=== PATIENT | female | born 1965 | race Caucasian/White ===

== ENCOUNTER 2016-09-08 10:52 | Inpatient (IN) | payer MEDICAID ==
[2016-09-08 10:52] VITALS: BMI 22.3
[2016-09-08] MEDS ORDERED: Sodium Chloride 0.9% 1,000 ML IV ONE (11:31)
[2016-09-08 11:56] LABS: BASO # 0.1 K/uL (0.0-0.2); EOS # 0.1 K/uL (0.0-0.7); EOS % 0.9 % (0.0-4.0); HEMATOCRIT 29.5 % (34.0-47.0); LYMPH # 1.5 K/uL (1.0-4.3); MEAN CORPUSCULAR HEMOGLOBIN 39.6 pg (27.0-31.0); MEAN CORPUSCULAR HGB CONC 35.1 g/dL (33.0-37.0); MEAN PLATELET VOLUME 7.7 fL (7.2-11.7); MONO # 1.3 K/uL (0.0-0.8); MONO % 16.1 % (0.0-10.0); NRBC % 0.1 % (0.0-2.0); WHITE BLOOD COUNT 8.3 K/uL (4.8-10.8)
[2016-09-08 12:00] LABS: MEAN CELL VOLUME 112.9 fL (81.0-99.0)
--- NOTE | 2016-09-08 12:33 | CT ---
PROCEDURE: CT HEAD WITHOUT CONTRAST. HISTORY: AMS COMPARISON: Noncontrast head CT performed 01/29/16 TECHNIQUE: Axial computed tomography images were obtained through the head/brain without intravenous contrast. Radiation dose: Total exam DLP = 11 28.60 mGy-cm. This CT exam was performed using one or more of the following dose reduction techniques: Automated exposure control, adjustment of the mA and/or kV according to patient size, and/or use of iterative reconstruction technique. FINDINGS: HEMORRHAGE: No intracranial hemorrhage. BRAIN: Please note that MRI with diffusion imaging is more sensitive in the detection of acute ischemic event.No mass effect or edema. Right frontal encephalomalacia re-identified. Scattered periventricular and subcortical white matter hypodensities, which are nonspecific, but often seen with chronic microvascular ischemic disease. Please note that MRI with diffusion imaging is more sensitive in the detection of acute ischemic event. VENTRICLES: No hydrocephalus. CALVARIUM: Unremarkable. PARANASAL SINUSES: Unremarkable as visualized. No significant inflammatory changes. MASTOID AIR CELLS: The mastoid air cells are underpneumatized. OTHER FINDINGS: None. IMPRESSION: Generalized atrophy. Nonspecific white matter changes. Right frontal encephalomalacia re-identified. The mastoid air cells are underpneumatized.
--- NOTE | 2016-09-08 12:54 | RAD ---
HISTORY: AMS COMPARISON: Chest x-ray performed 03/05/16 TECHNIQUE: Chest, one view. FINDINGS: The patient's chin obscures evaluation of the left lung apex. LUNGS: No focal consolidation. Please note that chest x-ray has limited sensitivity for the detection of pulmonary masses. PLEURA: No significant pleural effusion identified. No definite pneumothorax . CARDIOVASCULAR: Heart size appears within normal limits. Atherosclerotic calcifications of the aorta. OSSEOUS STRUCTURES: No acute osseous abnormality identified. VISUALIZED UPPER ABDOMEN: Unremarkable. OTHER FINDINGS: None. IMPRESSION: No focal consolidation, significant pleural effusion, or definite pneumothorax identified.
--- NOTE | 2016-09-08 13:16 | C.PDOC ---
History Of Present Illness 51 year old patient is brought to the emergency department by family for evaluation of altered mental status that the patient's noted this morning. As per the , patient was not fully responsive this morning and was confused. He notes her skin progressively becoming more yellow-roseanna in discoloration for the past few days. Patient has been compliant with her medications. As per , patient denies any recent illness or vomiting. Further history or review of systems cannot be obtained from patient due to her inability to answer any questions. PMD: Dr. Villeda PMHx: EtOH abuse, liver cirrhosis, hypertension, asthma, bronchitis, depression , anxiety, hepatitis C, diabetes, GI bleed, sepsis, seizure disorder, gastritis PProcedures: Paracentesis 11/04/15 and 11/13/15, EGD 06/27/14 PSurgeries: bilateral tubal ligation Time Seen by Provider: 09/08/16 11:29 Chief Complaint (Nursing): Altered Mental Status History Per: Family History/Exam Limitations: Clinical Condition Onset/Duration Of Symptoms: Hrs (this morning) Onset Of Symptoms: Cannot Confirm Onset Current Symptoms Are (Timing): Still Present Usual Baseline: Alert Oriented Recent travel outside of the [place]: No Additional History Per: EMS Associated Symptoms: Disoriented, Confused Past Medical History Reviewed: Historical Data, Nursing Documentation, Vital Signs Vital Signs: Last Vital Signs Temp 97.7 F 09/08/16 17:32 Pulse 72 09/08/16 17:32 Resp 20 09/08/16 17:32 BP 105/70 09/08/16 17:32 Pulse Ox 97 09/08/16 17:32 - Medical History PMH: Anemia, Anxiety, Asthma, Bronchitis, COPD, Depression, Diabetes (type 2), Hepatitis (C), HTN, Peripheral Edema, Chronic Kidney Disease, Seizures - [facility] Procedures ALCOHOL DETOXIFICATION (01/20/13) DRAINAGE OF PERITONEAL CAVITY WITH DRAIN DEV, PERC APPROACH (02/11/15) DRAINAGE OF PERITONEAL CAVITY, PERCUTANEOUS APPROACH (03/04/16) DRAINAGE OF PERITONEAL CAVITY, PERCUTANEOUS APPROACH, DIAGN (03/04/16) INFLUENZA VACCINATION (06/25/14) INSPECTION OF UPPER INTESTINAL TRACT, ENDO (03/04/16) OCCLUSION ESOPHAGEAL VEIN W EXTRALUM DEV, PERC ENDO (02/11/15) OTHER ENDOSCOPY OF SM INTEST (06/25/14) VACCINATION NEC (06/25/14) Family History: States: Unknown Family Hx - Social History Hx Tobacco Use: Yes (light smoker) Hx Alcohol Use: Yes Hx Substance Use: No - Immunization History Hx Tetanus Toxoid Vaccination: No Hx Influenza Vaccination: No Hx Pneumococcal Vaccination: No Review Of Systems Review Of Systems: ROS cannot be obtained secondary to pt's inabilty to answer questions. Physical Exam - Physical Exam Appears: Chronically Ill Skin: Warm, Dry, Jaundice (generalized, moderate) Head: Normacephalic Eye(s): bilateral: Scleral Icterus Ear(s): Bilateral: Normal Nose: Normal Throat: Normal Neck: Normal ROM, Supple Chest: Symmetrical Cardiovascular: Rhythm Regular, No Murmur, No JVD Respiratory: No Rales, No Rhonchi, No Wheezing Gastrointestinal/Abdominal: Soft, No Tenderness Back: No CVA Tenderness, No Vertebral Tenderness Neurological/Psych: Normal Reflexes ED Course And Treatment - Laboratory Results Result Diagrams: 09/08/16 11:32 09/08/16 14:07 ECG: Interpreted By Me, Viewed By Me ECG Rhythm: Sinus Rhythm ECG Interpretation: Normal Rate From EC (bpm) O2 Sat by Pulse Oximetry: 96 (room air) Pulse Ox Interpretation: Normal - CT Scan/US CT head Other Rad Studies (CT/US): Read By Radiologist, Radiology Report Reviewed CT/US Interpretation: Accession No. : [id number]. Patient Name / ID : SUE FARIA / [id number]. Exam Date : 09/08/2016 12:07:07 ( Approved ). Study Comment : Sex / Age : F / 51Y. Creator : Rita Lees MD. Dictator : Rita Lees MD. Cigar Wrapper : Associate Store Leader : Rita Lees MD. Approver2 : Report Date : 09/08/2016 12:31:32. My Comment : . PROCEDURE: CT HEAD WITHOUT CONTRAST. HISTORY: AMS. COMPARISON: Noncontrast head CT performed 01/29/16. TECHNIQUE: Axial computed tomography images were obtained through the head/brain without intravenous contrast. Radiation dose: Total exam DLP = 11 28.60 mGy-cm. This CT exam was performed using one or more of the following dose reduction techniques: Automated exposure control, adjustment of the mA and/or kV according to patient size, and/ or use of iterative reconstruction technique. FINDINGS: HEMORRHAGE: No intracranial hemorrhage. BRAIN: Please note that MRI with diffusion imaging is more sensitive in the detection of acute ischemic event.No mass effect or edema. Right frontal encephalomalacia re-identified. Scattered periventricular and subcortical white matter hypodensities, which are nonspecific, but often seen with chronic microvascular ischemic disease. Please note that MRI with diffusion imaging is more sensitive in the detection of acute ischemic event. VENTRICLES: No hydrocephalus. CALVARIUM: Unremarkable. PARANASAL SINUSES: Unremarkable as visualized. No significant inflammatory changes. MASTOID AIR CELLS: The mastoid air cells are underpneumatized. OTHER FINDINGS: None. IMPRESSION: Generalized atrophy. Nonspecific white matter changes. Right frontal encephalomalacia re-identified. The mastoid air cells are underpneumatized. Progress Note: Plan: -EKG. -Head CT w/o contrast. -Labs. -Chest x-ray. -IV fluids. On re-eavluation, pt remained unchanged. Slightly lethargic, although hemodynamicaly stable. Diagnostics review, ammonimea, hyperbilirubinemia hx of liver cirrhosis. Case discussed with Hospitalist covering for and admission arranged. Disposition - Disposition Disposition: HOSPITALIZED Disposition Time: 14:01 Condition: FAIR - Clinical Impression Clinical Impression: Mental status alteration, Hepatic encephalopathy, Hyperbilirubinemia - PA / OPHTHALMIC DISPENSER / Resident Statement MD/DO has reviewed & agrees with the documentation as recorded. - Scribe Statement The provider has reviewed the documentation as recorded by the Scribe Antoinette Kauffman All medical record entries made by the Scribe were at my direction and personally dictated by me. I have reviewed the chart and agree that the record accurately reflects my personal performance of the history, physical exam, medical decision making, and the department course for this patient. I have also personally directed, reviewed, and agree with the discharge instructions and disposition.
[2016-09-08 14:29] LABS: CHLORIDE 102 mmol/L (98-107); SODIUM 134 mmol/L (132-148)
--- NOTE | 2016-09-08 14:30 | CP.PCM.HP ---
<Rosangela Shrama - Last Filed: 09/08/16 17:28> History of Present Illness - History of Present Illness History of Present Illness: Please note: patient is a poor historian and disoriented to self, place, and time. She believes her name is Jacy, does not know where she is, and believes it is 2006. History is from fiance at bedside and old medical charts. CC: "she was confused this morning" HPI: Patient is a 51 year old female PMHx of EtOH abuse, liver cirrhosis, hypertension, asthma, bronchitis, depression, anxiety, hepatitis C, diabetes, GI bleed, sepsis, seizure disorder, gastritis brought in by her fiance for altered mental status. As per [facility], patient was at baseline last evening around 9pm when she was oriented, ambulating, and they watched a movie together and ate dinner. However when he visited patient this morning at around 8am he noticed she was "more yellow than usual and even her tears were yellow." Patient was also confused and acting inappropriately. Patient wanted to fall asleep and was refusing to eat and would stare blankly at the ceiling. Patient refused her daily breakfast of pancakes but did take her daily medications. She was disheveled and lost control of bowel and bladder function. Patient's fiance did not notice any blood in her stool or urine or any melanotic stool, but did notice that her urine was very yellow. She was weak and unable to walk to the bathroom. Patient's fiance noticed that she has been losing weight unintentionally but her appetite has remained the same. Patient was able to recognize who fiance was and her other family members [ granddaughter and daughter at bedside] but was not oriented to self, place, or time. PMD: Dr. Villeda PMHx: EtOH abuse, liver cirrhosis, hypertension, asthma, bronchitis, depression , anxiety, hepatitis C, diabetes, GI bleed, sepsis, seizure disorder, gastritis Meds: as per [facility], patient takes multivitamins daily ALL: iodinated contrast PSurg: bilateral tubal ligation PProcedures: multiple paracentesis; EGD 03/05/16: non bleeding 10cm esophageal ulcer, portal HTN gastropathy, normal duodenum; EGD 02/12/15 esophageal varices and portal HTN gastropathy PHospitalizations: patient was last discharged from in March 2016 after being admitted for GI bleed. PED: 06/27/16 for abdominal pain- patient was diagnosed with UTI and discharged on ciprofloxacin 1tab PO BID for 7 days Family Hx: Father and brother have hepatitis hepatitis. Sister had an ID Social Hx: patient was drinking 3 beers/day since she was in her teens; as per fiance patient drinks 1/2 a beer a day. Patient used to smoke 1/2 ppd since her teens but as per fiance only smokes a couple of puffs now. Denies any travel, sickness, sick contacts. 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 Patient lives alone. ROS: complete ROS unobtainable. Patient denied any pain in her chest and abdomen and denied any shortness of breath. ED Course: blood work, negatice UDS and alc quant <10, EKG showing NSR, Head CT w/o contrast showing generalized atrophy. Nonspecific white matter changes. Right frontal encephalomalacia re-identified. The mastoid air cells are underpneumatized, CXR showing no focal consolidation, significant pleural effusion or definite pneumothroax. Patient admitted to med/surg for hepatic encephalopathy Present on Admission - Present on Admission Any Indicators Present on Admission: No Review of Systems - Review of Systems Systems not reviewed;Unavailable: Acuity of Condition, Altered Mental Status Past Patient History - Infectious Disease Hx of Infectious Diseases: None - Tetanus Immunizations Tetanus Immunization: Unknown - Past Medical History & Family History Past Medical History?: Yes - Past Social History Smoking Status: Light Smoker < 10 Cigarettes Daily Alcohol: Occasional Home Situation {Lives}: Alone - CARDIAC Hx Hypertension: Yes Hx Peripheral Edema: Yes - PULMONARY Hx Asthma: Yes Hx Bronchitis: Yes Hx Chronic Obstructive Pulmonary Disease (COPD): Yes - NEUROLOGICAL Hx Seizures: Yes - HEENT Hx HEENT Problems: Yes Hx Epistaxis: Yes - RENAL Hx Chronic Kidney Disease: Yes - ENDOCRINE/METABOLIC Hx Endocrine Disorders: Yes Hx Diabetes Mellitus Type 2: Yes - HEMATOLOGICAL/ONCOLOGICAL Hx Anemia: Yes - INTEGUMENTARY Hx Dermatological Problems: No - MUSCULOSKELETAL/RHEUMATOLOGICAL Hx Falls: Yes Hx Unsteady Gait: Yes - GASTROINTESTINAL Hx Gastrointestinal Disorders: Yes Hx Esophageal Varices: Yes (February 2015) Hx Liver Failure: Yes (stage IV cirrhosis) Hx Vomiting: Yes Other/Comment: GI BLEED - GENITOURINARY/GYNECOLOGICAL Hx Genitourinary Disorders: Yes Hx Incontinence: Yes - PSYCHIATRIC Hx Anxiety: Yes Hx Depression: Yes Hx Substance Use: No - SURGICAL HISTORY Hx Surgeries: Yes (ectopic ) Hx Section: Yes (x1) - ANESTHESIA Hx Anesthesia: Yes Hx Anesthesia Reactions: No Meds Allergies/Adverse Reactions: Allergies Allergy/AdvReac Type Severity Reaction Status Date / Time Iodinated Contrast Media - Allergy Verified 09/08/16 10:59 Oral and Physical Exam - Constitutional Appears: Unkempt, Older Than Stated Age, Confused, Cachectic, Chronically Ill Additional comments: jaundiced - Head Exam Head Exam: ATRAUMATIC, NORMOCEPHALIC - Eye Exam Eye Exam: EOMI, PERRL, Scleral icterus (b/l). absent: Conjunctival injection, Normal appearance, Nystagmus, Periorbital swelling Pupil Exam: PERRL - ENT Exam ENT Exam: Mucous Membranes Dry - Neck Exam Neck exam: Positive for: Normal Inspection. Negative for: Lymphadenopathy, Tenderness - Respiratory Exam Respiratory Exam: Clear to Auscultation Bilateral, NORMAL BREATHING PATTERN. absent: Accessory Muscle Use, Rales, Rhonchi, Wheezes, Respiratory Distress - Cardiovascular Exam Cardiovascular Exam: REGULAR RHYTHM, RRR, +S1, +S2. absent: Systolic Murmur - GI/Abdominal Exam GI & Abdominal Exam: Distended (slightly distended), Hernia (umbilical), Normal Bowel Sounds, Soft. absent: Firm, Guarding, Mass, Rigid, Tenderness - Extremities Exam Extremities exam: Positive for: normal inspection, pedal pulses present. Negative for: calf tenderness, pedal edema - Back Exam Back exam: NORMAL INSPECTION. absent: CVA tenderness (L), CVA tenderness (R), muscle spasm, rash noted - Neurological Exam Neurological exam: Altered - Psychiatric Exam Psychiatric exam: Flat Affect - Skin Skin Exam: Dry, Warm Additional comments: jaundiced no petechiae noted Results - Vital Signs Recent Vital Signs: Last Vital Signs Temp 98.1 F 09/08/16 10:55 Pulse 73 09/08/16 14:10 Resp 19 09/08/16 14:10 BP 110/61 09/08/16 14:10 Pulse Ox 96 09/08/16 14:25 - Labs Result Diagrams: 09/08/16 11:32 09/08/16 14:07 Labs: Laboratory Results - last 24 hr 09/08/16 09/08/16 09/08/16 11:22 11:32 11:43 WBC 8.3 RBC 2.61 L Hgb 10.3 L Hct 29.5 L MCV 112.9 H D MCH 39.6 H MCHC 35.1 RDW 20.0 H Plt Count 140 MPV 7.7 Neut % (Auto) 64.0 Lymph % (Auto) 18.0 L Stokes % (Auto) 16.1 H Eos % (Auto) 0.9 Baso % (Auto) 1.0 Neut # 5.3 Lymph # 1.5 Stokes # 1.3 H Eos # 0.1 Baso # 0.1 PT INR APTT POC Glucose (mg/dL) 105 Ammonia Cancelled 09/08/16 09/08/16 11:43 14:08 WBC RBC Hgb Hct MCV MCH MCHC RDW Plt Count MPV Neut % (Auto) Lymph % (Auto) Stokes % (Auto) Eos % (Auto) Baso % (Auto) Neut # Lymph # Stokes # Eos # Baso # PT Cancelled 23.3 H INR Cancelled 2.0 APTT Cancelled 40 H POC Glucose (mg/dL) Ammonia Assessment & Plan - Assessment and Plan (Free Text) Assessment: Patient is a 51 year old female PMHx of EtOH abuse, liver cirrhosis, hypertension, asthma, bronchitis, depression, anxiety, hepatitis C, diabetes, GI bleed, sepsis, seizure disorder, gastritis brought in by her fiance for altered mental status Plan: Altered Mental Status Likely secondary to hepatic encephalopathy Ammonia: 57 CT head w/o contrast: generalized atrophy. Nonspecific white matter changes. Right frontal encephalomalacia re-identified. The mastoid air cells are underpneuomatized Urine Tox: negative Alc quant: < 10 f/u blood culture and urine culture Lactulose 30gm po q1 until patient has a BM as per GI Albumin Albumin 12.5gm @ 25cc/hr Q2 GI Consult Dr. Agosto- help appreciated Alcoholic Cirrhosis TBili 24.7 AST 193 ALT 107 Alk Phosphatase 167 f/u abdominal u/s f/u CT chest, abdomen, pelvis w/o contrast f/u AM labs TBili and Direct Bili f/u tumor markers: AFP, CA 19-9, CEA, CA 125 f/u AM PT/INR and monitor Anemia of chronic disease Monitor H&H Hx of Alcohol abuse Folic acid 1mg po daily Multivitamin 1 tab po daily Vitamin B6 25mg po daily Thiamine 50mg po daily Zofran 4mg IVP Q8 PRN nausea/vomiting Hx of Hepatitis C f/u acute hepatitis panel f/u Viral hep C load Hx of DM Accucheck ACHS low dose RISS f/u [id number] Hx of HTN hold home medications Acute Kidney Injury vs Hepatorenal Syndrome BUN/Cr : 47/1.4 NS @ 50cc/hr Albumin: 2.5 Albumin 12.5gm @ 25cc/hr Q2 f/u urine sodium, random creatitine, urine osmolality, serum osmolality f/u renal duplex complete and renal u/s PPX VTE ppx c/i SCDs Protonix 40mg po daily Strict Is and Os GI/Hepatic diet- protein 60gm Scaffolder referral for malnourishment Plan discussed with Dr. Radha Sharma PGY1 <James Garcia - Last Filed: 09/08/16 19:06> Results - Vital Signs Recent Vital Signs: Last Vital Signs Temp 97.7 F 09/08/16 17:32 Pulse 72 09/08/16 17:32 Resp 20 09/08/16 17:32 BP 105/70 09/08/16 17:32 Pulse Ox 97 09/08/16 17:32 - Labs Result Diagrams: 09/08/16 11:32 09/08/16 14:07 Labs: Laboratory Results - last 24 hr 09/08/16 09/08/16 09/08/16 14:07 14:07 14:08 PT 23.3 H INR 2.0 APTT 40 H Sodium 134 Potassium 3.0 L Chloride 102 Carbon Dioxide 22 Anion Gap 14 BUN 47 H Creatinine 1.4 H Est GFR ( Amer) 48 Est GFR (Non-Af Amer) 40 Random Glucose 83 Calcium 7.7 L Total Bilirubin 24.7 H AST 193 H D ALT 107 H Alkaline Phosphatase 167 H Ammonia 57 H Lactate Dehydrogenase 474 Troponin I 0.0140 Total Protein 7.4 Albumin 2.5 L Globulin 4.9 H Albumin/Globulin Ratio 0.5 L Urine Color Urine Clarity Urine pH Ur Specific [place] Urine Protein Urine Glucose (UA) Urine Ketones Urine Blood Urine Nitrate Urine Bilirubin Urine Urobilinogen Ur Leukocyte Esterase Urine WBC (Auto) Urine RBC (Auto) Ur Squamous Epith Cells Urine Bacteria Hyaline Casts Urine HCG, Qual Urine Opiates Screen Urine Methadone Screen Ur Barbiturates Screen Ur Phencyclidine Scrn Ur Amphetamines Screen U Benzodiazepines Scrn U Oth Cocaine Metabols U Cannabinoids Screen Alcohol, Quantitative < 10 09/08/16 09/08/16 14:53 14:53 PT INR APTT Sodium Potassium Chloride Carbon Dioxide Anion Gap BUN Creatinine Est GFR ( Amer) Est GFR (Non-Af Amer) Random Glucose Calcium Total Bilirubin AST ALT Alkaline Phosphatase Ammonia Lactate Dehydrogenase Troponin I Total Protein Albumin Globulin Albumin/Globulin Ratio Urine Color [place] Urine Clarity Hazy Urine pH 6.0 Ur Specific Ber[place] 1.013 Urine Protein Negative Urine Glucose (UA) Normal Urine Ketones Negative Urine Blood 2+ H Urine Nitrate Negative Urine Bilirubin 2+ H Urine Urobilinogen 4.0 H Ur Leukocyte Esterase Neg Urine WBC (Auto) 5 Urine RBC (Auto) 1 Ur Squamous Epith Cells < 1 Urine Bacteria Rare Hyaline Casts 3-5 H Urine HCG, Qual Negative Urine Opiates Screen Negative Urine Methadone Screen Negative Ur Barbiturates Screen Negative Ur Phencyclidine Scrn Negative Ur Amphetamines Screen Negative U Benzodiazepines Scrn Negative U Oth Cocaine Metabols Negative U Cannabinoids Screen Negative Alcohol, Quantitative Attending/Attestation - Attestation I have personally seen and examined this patient.: Yes I have fully participated in the care of the patient.: Yes I have reviewed all pertinent clinical information: Yes Notes (Text): Medical attending: Patient was seen and examined by me, agrees the above note by medical research associate. Patient was seen and examined by me in the ER bed 12. Family members were at bedside. There is a history of hepatitis C, the family is not aware of how long it's been going on for. There is also a history of extensive drinking and smoking. When I spoke with the patient's family members at bedside explained that she still smokes and on occasion still drinks normally she does have some baseline jaundice. However the family says that at baseline she is normally very interactive the functional however as documented above the resident note yesterday she became very altered mental status during the night. An ammonia level was drawn, very concerned that this could be hepatic encephalopathy she's can eat a lot of lactulose and possibly Xifaxan as well. The other concern is she might have hepatitis C that's developed into liver cancer. She really has extensive liver damage her INR is already elevated. She' s had elevated LFTs as well very low albumen. Also of note her creatinine is also elevated as well. This is either hepato- renal situation or an VINCE due to poor by mouth intake We'll have to get a GI evaluation. In the past patient has had elevated T bilirubin levels. However at this time it 's very high regarding get a CT scan of the abdomen and pelvis as well as a ultrasound of the abdomen in case there could be some sort of biliary tree obstruction Thank you very much, James Garcia
[2016-09-08 14:31] LABS: ALB/GLOB RATIO 0.5 (1.0-2.1); ALKALINE PHOSPHATASE 167 U/L (38-126); AST/SGOT 193 U/L (14-36); BILIRUBIN,TOTAL 24.7 mg/dL (0.2-1.3); CARBON DIOXIDE 22 mmol/L (22-30); GFR AFRICAN-AMERICAN 48; TOTAL PROTEIN 7.4 g/dL (6.3-8.3)
[2016-09-08 14:32] LABS: ALCOHOL SERUM < 10 mg/dl (0-10); ALT/SGPT 107 U/L (9-52); BLOOD UREA NITROGEN 47 mg/dL (7-17); CALCIUM 7.7 mg/dl (8.6-10.4); GLUCOSE,RANDOM 83 mg/dL (65-105)
[2016-09-08 15:15] LABS: RBC URINE 1 /hpf (0-3); URINE BACTERIA RARE (<OCC); URINE BILIRUBIN 2+ (NEGATIVE); URINE BLOOD 2+ (NEGATIVE); URINE COLOR Amber (YELLOW); URINE GLUCOSE (UA) NORMAL (Normal); URINE KETONE NEGATIVE (NEGATIVE); URINE LEUKOCYTE ESTERASE NEG Leu/uL (Negative); URINE PROTEIN NEGATIVE (NEGATIVE)
[2016-09-08 15:17] LABS: WBC URINE 5 /hpf (0-5)
[2016-09-08] MEDS ORDERED: Potassium Chloride 20 mEq ER Tab PO ONE ×2 (17:06→22:07)
[2016-09-08] MEDS ORDERED: Albumin Human 25% (12.5 gm/50 ml) IV SCH (17:30)
[2016-09-08] MEDS: Multiple Vitamins Tab PO SCH (19:26)
[2016-09-08] MEDS: Sodium Chloride 0.9% 1,000 ML IV SCH (22:33)
[2016-09-08] MEDS: (Novolog) Insulin Aspart, Recombinant 100 u/ml 10 ml vial SC SCH (22:34)
[2016-09-09 06:57] LABS: BASO % 0.7 % (0.0-2.0); EOS % 0.7 % (0.0-4.0); HEMATOCRIT 21.4 % (34.0-47.0); LYMPH # 0.8 K/uL (1.0-4.3); LYMPH % 12.8 % (20.0-40.0); MEAN CELL VOLUME 112.9 fL (81.0-99.0); MEAN CORPUSCULAR HGB CONC 35.4 g/dL (33.0-37.0); MEAN PLATELET VOLUME 7.2 fL (7.2-11.7); MONO # 0.9 K/uL (0.0-0.8); MONO % 14.2 % (0.0-10.0); NRBC % 0.1 % (0.0-2.0); RED CELL DISTRIBUTION WIDTH 19.2 % (11.5-14.5); WHITE BLOOD COUNT 6.1 K/uL (4.8-10.8)
[2016-09-09 07:10] LABS: INR 2.1
--- NOTE | 2016-09-09 07:11 | CP.PCM.CON ---
<Raissa Rajan - Last Filed: 09/09/16 09:37> History of Present Illness - History of Present Illness History of Present Illness: Gastroenterology Fellow/PGY4 Consult Note 51 year old female with history of Hypertension, Diabetes, Depression, Anxiety, recurrent decompensated cirrhosis(2/2 GI bleed, ascites, and hepatic encephalopathy) on Lasix/spironolactone 40/100, Hep C genotype 4a/4c/4d viral load 4915 (12/2015), esophageal varices 02/2015 on propranolol resolved on EGD presenting with confusion. Patient is oriented to person and place only. Can not detail why she is in the hospital and does not remember when was her last drink. She states she has loss pf appeitie but denies nausea, vomiting, or abdominla pain. History from [facility] and nursing staff overnight. She was doing well on 09/07 and was found to have yellowing of skin/eyes and confused on morning of 09/09 with refusing to take medications leading to ER presentation. Fiance endorses ongoing daily beer intake with previous history of 3 beers per day. Overnight, nurse confirms three bowel movements with lactulose administration. Prior EGD 02/2016 with one 5mm esophageal ulcer and one linear esophageal ulcer, and portal hypertensive gastropathy. Prior EGD 02/2015 with moderate esophageal varices and placement of 3 bands for ligation. Family- Father- Hepatitis C Spcoal- 3 beers per day since a teen, 1/2 ppd since a teen Surgery- ?hysterectomy, multiple paracentesis FHx: Father - HCV, Sister - CA Review of Systems - Review of Systems Review of Systems: A 12-point review of systems limited in setting of hepatic encephalopathy Past Patient History - Infectious Disease Hx of Infectious Diseases: None - Tetanus Immunizations Tetanus Immunization: Unknown - Past Medical History & Family History Past Medical History?: Yes - Past Social History Smoking Status: Light Smoker < 10 Cigarettes Daily Alcohol: Occasional Home Situation {Lives}: Alone - CARDIAC Hx Hypertension: Yes Hx Peripheral Edema: Yes - PULMONARY Hx Asthma: Yes Hx Bronchitis: Yes Hx Chronic Obstructive Pulmonary Disease (COPD): Yes - NEUROLOGICAL Hx Seizures: Yes - HEENT Hx HEENT Problems: Yes Hx Epistaxis: Yes - RENAL Hx Chronic Kidney Disease: Yes - ENDOCRINE/METABOLIC Hx Endocrine Disorders: Yes Hx Diabetes Mellitus Type 2: Yes - HEMATOLOGICAL/ONCOLOGICAL Hx Anemia: Yes - INTEGUMENTARY Hx Dermatological Problems: No - MUSCULOSKELETAL/RHEUMATOLOGICAL Hx Falls: Yes Hx Unsteady Gait: Yes - GASTROINTESTINAL Hx Gastrointestinal Disorders: Yes Hx Esophageal Varices: Yes (February 2015) Hx Liver Failure: Yes (stage IV cirrhosis) Hx Vomiting: Yes Other/Comment: GI BLEED - GENITOURINARY/GYNECOLOGICAL Hx Genitourinary Disorders: Yes Hx Incontinence: Yes - PSYCHIATRIC Hx Anxiety: Yes Hx Depression: Yes Hx Substance Use: No - SURGICAL HISTORY Hx Surgeries: Yes (ectopic ) Hx Section: Yes (x1) - ANESTHESIA Hx Anesthesia: Yes Hx Anesthesia Reactions: No Meds Allergies/Adverse Reactions: Allergies Allergy/AdvReac Type Severity Reaction Status Date / Time Iodinated Contrast Media - Allergy Verified 09/08/16 10:59 Oral and - Medications Medications: Current Medications Folic Acid (Folic Acid) 1 mg PO DAILY [facility] Last Admin: 09/08/16 19:26 Dose: 1 mg Sodium Chloride (Sodium Chloride 0.9%) 1,000 mls @ 50 mls/hr IV .Q20H [facility] Last Admin: 09/08/16 22:33 Dose: 50 mls/hr Insulin Aspart (Novolog) 0 unit SC ACHS [facility] PRN Reason: Protocol Last Admin: 09/08/16 22:34 Dose: Not Given Lactulose (Enulose) 30 gm PO Q12 [facility] Multivitamins (Hexavitamin) 1 tab PO DAILY [facility] Last Admin: 09/08/16 19:26 Dose: 1 tab Ondansetron HCl (Zofran Inj) 4 mg IVP Q8H PRN PRN Reason: Nausea/Vomiting Pantoprazole Sodium (Protonix Ec Tab) 40 mg PO DAILY [facility] Pyridoxine HCl (Vitamin B6) 25 mg PO DAILY [facility] Last Admin: 09/08/16 19:27 Dose: 25 mg Thiamine HCl (Vitamin B1 Tab) 50 mg PO DAILY [facility] Last Admin: 09/08/16 19:26 Dose: 50 mg Physical Exam - Constitutional Appears: No Acute Distress, Chronically Ill - Head Exam Head Exam: ATRAUMATIC, NORMOCEPHALIC - Eye Exam Eye Exam: EOMI, PERRL, Scleral icterus Pupil Exam: PERRL. absent: Miosis, Mydriatic - ENT Exam ENT Exam: Mucous Membranes Dry, Normal Oropharynx - Neck Exam Neck exam: Positive for: Full Rom, Normal Inspection - Respiratory Exam Respiratory Exam: Clear to Auscultation Bilateral. absent: Rales, Rhonchi, Wheezes - Cardiovascular Exam Cardiovascular Exam: RRR, +S1, +S2. absent: Gallop, Rubs - GI/Abdominal Exam GI & Abdominal Exam: Hernia, Normal Bowel Sounds, Organomegaly, Soft. absent: Distended, Firm, Rebound, Rigid, Tenderness Additional comments: umbilical hernia, splenomegaly - Extremities Exam Extremities exam: Positive for: full ROM. Negative for: pedal edema - Neurological Exam Neurological exam: Altered Additional comments: awake, altered, oriented to person and place, does not know year or president - Psychiatric Exam Psychiatric exam: Flat Affect - Skin Skin Exam: Dry, Intact, Warm Additional comments: diffuse jaundice Results - Vital Signs Recent Vital Signs: Last Vital Signs Temp 98.4 F 09/09/16 00:59 Pulse 96 H 09/09/16 00:59 Resp 20 09/09/16 00:59 BP 98/63 L 09/09/16 00:59 Pulse Ox 98 09/09/16 00:59 - Labs Result Diagrams: 09/09/16 06:44 09/09/16 06:44 Labs: Laboratory Results - last 24 hr 09/08/16 09/08/16 09/08/16 14:07 14:07 14:08 WBC RBC Hgb Hct MCV MCH MCHC RDW Plt Count MPV Neut % (Auto) Lymph % (Auto) Sharkey % (Auto) Eos % (Auto) Baso % (Auto) Neut # Lymph # Sharkey # Eos # Baso # PT 23.3 H INR 2.0 APTT 40 H Sodium 134 Potassium 3.0 L Chloride 102 Carbon Dioxide 22 Anion Gap 14 BUN 47 H Creatinine 1.4 H Est GFR ( Amer) 48 Est GFR (Non-Af Amer) 40 POC Glucose (mg/dL) Random Glucose 83 Serum Osmolality Calcium 7.7 L Total Bilirubin 24.7 H AST 193 H D ALT 107 H Alkaline Phosphatase 167 H Ammonia 57 H Lactate Dehydrogenase 474 Troponin I 0.0140 Total Protein 7.4 Albumin 2.5 L Globulin 4.9 H Albumin/Globulin Ratio 0.5 L Urine Color Urine Clarity Urine pH Ur Specific [place] Urine Protein Urine Glucose (UA) Urine Ketones Urine Blood Urine Nitrate Urine Bilirubin Urine Urobilinogen Ur Leukocyte Esterase Urine WBC (Auto) Urine RBC (Auto) Ur Squamous Epith Cells Urine Bacteria Hyaline Casts Urine HCG, Qual Urine Opiates Screen Urine Methadone Screen Ur Barbiturates Screen Ur Phencyclidine Scrn Ur Amphetamines Screen U Benzodiazepines Scrn U Oth Cocaine Metabols U Cannabinoids Screen Alcohol, Quantitative < 10 09/08/16 09/08/16 09/08/16 14:53 14:53 21:51 WBC RBC Hgb Hct MCV MCH MCHC RDW Plt Count MPV Neut % (Auto) Lymph % (Auto) Sharkey % (Auto) Eos % (Auto) Baso % (Auto) Neut # Lymph # Sharkey # Eos # Baso # PT INR APTT Sodium Potassium Chloride Carbon Dioxide Anion Gap BUN Creatinine Est GFR ( Amer) Est GFR (Non-Af Amer) POC Glucose (mg/dL) 200 H Random Glucose Serum Osmolality Calcium Total Bilirubin AST ALT Alkaline Phosphatase Ammonia Lactate Dehydrogenase Troponin I Total Protein Albumin Globulin Albumin/Globulin Ratio Urine Color [place] Urine Clarity Hazy Urine pH 6.0 Ur Specific [place] 1.013 Urine Protein Negative Urine Glucose (UA) Normal Urine Ketones Negative Urine Blood 2+ H Urine Nitrate Negative Urine Bilirubin 2+ H Urine Urobilinogen 4.0 H Ur Leukocyte Esterase Neg Urine WBC (Auto) 5 Urine RBC (Auto) 1 Ur Squamous Epith Cells < 1 Urine Bacteria Rare Hyaline Casts 3-5 H Urine HCG, Qual Negative Urine Opiates Screen Negative Urine Methadone Screen Negative Ur Barbiturates Screen Negative Ur Phencyclidine Scrn Negative Ur Amphetamines Screen Negative U Benzodiazepines Scrn Negative U Oth Cocaine Metabols Negative U Cannabinoids Screen Negative Alcohol, Quantitative 09/08/16 09/09/16 23:06 06:44 WBC 6.1 RBC 1.89 L Hgb 7.6 L D Hct 21.4 L MCV 112.9 H MCH 40.0 H MCHC 35.4 RDW 19.2 H Plt Count 81 L D MPV 7.2 Neut % (Auto) 71.6 Lymph % (Auto) 12.8 L Sharkey % (Auto) 14.2 H Eos % (Auto) 0.7 Baso % (Auto) 0.7 Neut # 4.4 Lymph # 0.8 L Sharkey # 0.9 H Eos # 0.0 Baso # 0.0 PT INR APTT Sodium Potassium Chloride Carbon Dioxide Anion Gap BUN Creatinine Est GFR ( Amer) Est GFR (Non-Af Amer) POC Glucose (mg/dL) Random Glucose Serum Osmolality 295 Calcium Total Bilirubin AST ALT Alkaline Phosphatase Ammonia Lactate Dehydrogenase Troponin I Total Protein Albumin Globulin Albumin/Globulin Ratio Urine Color Urine Clarity Urine pH Ur Specific [place] Urine Protein Urine Glucose (UA) Urine Ketones Urine Blood Urine Nitrate Urine Bilirubin Urine Urobilinogen Ur Leukocyte Esterase Urine WBC (Auto) Urine RBC (Auto) Ur Squamous Epith Cells Urine Bacteria Hyaline Casts Urine HCG, Qual Urine Opiates Screen Urine Methadone Screen Ur Barbiturates Screen Ur Phencyclidine Scrn Ur Amphetamines Screen U Benzodiazepines Scrn U Oth Cocaine Metabols U Cannabinoids Screen Alcohol, Quantitative Assessment & Plan - Assessment and Plan (Free Text) Assessment: 51 year old female with history of Hypertension, Diabetes, Depression, Anxiety, recurrent decompensated cirrhosis (2/2 GI bleed, ascites, and hepatic encephalopathy) on Lasix/spironolactone 40/100, Hep C genotype 4a/4c/4d viral load 4915 (12/2015), esophageal varices 02/2015 on propranolol resolved on EGD presenting with confusion. Active treatment of decompensated cirrhosis, renal insufficiency versus hepatorenal syndrome, hepatic encephalopathy, and alcoholic hepatitis in setting of continued alcohol abuse. Prior EGD 02/2016 with one 5mm esophageal ulcer and one linear esophageal ulcer, and portal hypertensive gastropathy. Prior EGD 02/2015 with moderate esophageal varices and placement of 3 bands for ligation. Plan: >MELD 40 on admission, today 29 >DF 75.8 on admission, today 79.9 >accepted to [facility]- awaiting bed -Hepatology Fellow- Dr. Lucas >VINCE versus HRS- received albumin 50g (09/09) -received 1L NS bolus 09/09 >ordered second dose of albumin 50g today >on gentle IVFs- NS 50cc/hr, strict I&Os >daily LFTs, PT/INR >alcoholic hepatitis -afebrile, normal WBC, U/A negative -pending blood/urine cultures >ordered Prednisolone 40mg daily -follow up paracentesis, cultures -stop if infection present >pending CT chest/abdomen/pelvis >pending Abdominal U/S and Duplex U/S >perform diagnostic and therapeutic paracentesis -fluid analysis ordered >Hepatitis C viral load pending >ordered autoimmune workup >pending acetaminophen, negative UDS >low salt diet as tolerated >poor prognosis, recurrent decompensated alcoholic/HepC cirrhosis, alcoholic hepatitis >close monitoring, >awaiting transfer to [facility] <Tristan Agosto - Last Filed: 09/09/16 11:44> Meds - Medications Medications: Current Medications Folic Acid (Folic Acid) 1 mg PO DAILY [facility] Last Admin: 09/09/16 11:07 Dose: Not Given Sodium Chloride (Sodium Chloride 0.9%) 1,000 mls @ 50 mls/hr IV .Q20H [facility] Last Admin: 09/08/16 22:33 Dose: 50 mls/hr Albumin Human (Albumin Human 25% (12.5 Gm/50 Ml)) 50 mls @ 100 mls/hr IV Q2H [facility] Stop: 09/09/16 12:29 Albumin Human (Albumin Human 25% (12.5 Gm/50 Ml)) 50 mls @ 100 mls/hr IV Q2H [facility] Stop: 09/09/16 12:29 Insulin Aspart (Novolog) 0 unit SC ACHS [facility] PRN Reason: Protocol Last Admin: 09/09/16 08:20 Dose: Not Given Lactulose (Enulose) 30 gm PO Q12 [facility] Last Admin: 09/09/16 11:07 Dose: Not Given Multivitamins (Hexavitamin) 1 tab PO DAILY [facility] Last Admin: 09/09/16 11:07 Dose: Not Given Ondansetron HCl (Zofran Inj) 4 mg IVP Q8H PRN PRN Reason: Nausea/Vomiting Pantoprazole Sodium (Protonix Ec Tab) 40 mg PO DAILY [facility] Last Admin: 09/09/16 11:08 Dose: Not Given Prednisolone (Prednisolone) 40 mg PO DAILY [facility] Last Admin: 09/09/16 11:07 Dose: Not Given Pyridoxine HCl (Vitamin B6) 25 mg PO DAILY [facility] Last Admin: 09/09/16 11:08 Dose: Not Given Thiamine HCl (Vitamin B1 Tab) 50 mg PO DAILY [facility] Last Admin: 09/09/16 11:08 Dose: Not Given Results - Vital Signs Recent Vital Signs: Last Vital Signs Temp 98.7 F 09/09/16 07:28 Pulse 74 09/09/16 07:28 Resp 20 09/09/16 07:28 BP 108/68 09/09/16 07:28 Pulse Ox 97 09/09/16 07:28 - Labs Result Diagrams: 09/09/16 06:44 09/09/16 06:44 Labs: Laboratory Results - last 24 hr 09/08/16 09/08/16 09/08/16 14:07 14:07 14:08 WBC RBC Hgb Hct MCV MCH MCHC RDW Plt Count MPV Neut % (Auto) Lymph % (Auto) Sharkey % (Auto) Eos % (Auto) Baso % (Auto) Neut # Lymph # Sharkey # Eos # Baso # PT 23.3 H INR 2.0 APTT 40 H Sodium 134 Potassium 3.0 L Chloride 102 Carbon Dioxide 22 Anion Gap 14 BUN 47 H Creatinine 1.4 H Est GFR ( Amer) 48 Est GFR (Non-Af Amer) 40 POC Glucose (mg/dL) Random Glucose 83 Serum Osmolality Calcium 7.7 L Phosphorus Magnesium Total Bilirubin 24.7 H Direct Bilirubin GGT AST 193 H D ALT 107 H Alkaline Phosphatase 167 H Ammonia 57 H Lactate Dehydrogenase 474 Troponin I 0.0140 Total Protein 7.4 Albumin 2.5 L Globulin 4.9 H Albumin/Globulin Ratio 0.5 L Alpha Fetoprotein Carcinoembryonic Ag CA 19-9 Antigen CA 125 Antigen Urine Color Urine Clarity Urine pH Ur Specific [place] Urine Protein Urine Glucose (UA) Urine Ketones Urine Blood Urine Nitrate Urine Bilirubin Urine Urobilinogen Ur Leukocyte Esterase Urine WBC (Auto) Urine RBC (Auto) Ur Squamous Epith Cells Urine Bacteria Hyaline Casts Urine HCG, Qual Urine Opiates Screen Urine Methadone Screen Ur Barbiturates Screen Ur Phencyclidine Scrn Ur Amphetamines Screen U Benzodiazepines Scrn U Oth Cocaine Metabols U Cannabinoids Screen Alcohol, Quantitative < 10 Hepatitis A IgM Ab Hep Bs Antigen Hep B Core IgM Ab Hepatitis C Antibody 09/08/16 09/08/16 09/08/16 14:53 14:53 21:51 WBC RBC Hgb Hct MCV MCH MCHC RDW Plt Count MPV Neut % (Auto) Lymph % (Auto) Sharkey % (Auto) Eos % (Auto) Baso % (Auto) Neut # Lymph # Sharkey # Eos # Baso # PT INR APTT Sodium Potassium Chloride Carbon Dioxide Anion Gap BUN Creatinine Est GFR ( Amer) Est GFR (Non-Af Amer) POC Glucose (mg/dL) 200 H Random Glucose Serum Osmolality Calcium Phosphorus Magnesium Total Bilirubin Direct Bilirubin GGT AST ALT Alkaline Phosphatase Ammonia Lactate Dehydrogenase Troponin I Total Protein Albumin Globulin Albumin/Globulin Ratio Alpha Fetoprotein Carcinoembryonic Ag CA 19-9 Antigen CA 125 Antigen Urine Color [place] Urine Clarity Hazy Urine pH 6.0 Ur Specific [place] 1.013 Urine Protein Negative Urine Glucose (UA) Normal Urine Ketones Negative Urine Blood 2+ H Urine Nitrate Negative Urine Bilirubin 2+ H Urine Urobilinogen 4.0 H Ur Leukocyte Esterase Neg Urine WBC (Auto) 5 Urine RBC (Auto) 1 Ur Squamous Epith Cells < 1 Urine Bacteria Rare Hyaline Casts 3-5 H Urine HCG, Qual Negative Urine Opiates Screen Negative Urine Methadone Screen Negative Ur Barbiturates Screen Negative Ur Phencyclidine Scrn Negative Ur Amphetamines Screen Negative U Benzodiazepines Scrn Negative U Oth Cocaine Metabols Negative U Cannabinoids Screen Negative Alcohol, Quantitative Hepatitis A IgM Ab Hep Bs Antigen Hep B Core IgM Ab Hepatitis C Antibody 09/08/16 09/09/16 09/09/16 23:06 06:44 06:44 WBC 6.1 RBC 1.89 L Hgb 7.6 L D Hct 21.4 L MCV 112.9 H MCH 40.0 H MCHC 35.4 RDW 19.2 H Plt Count 81 L D MPV 7.2 Neut % (Auto) 71.6 Lymph % (Auto) 12.8 L Sharkey % (Auto) 14.2 H Eos % (Auto) 0.7 Baso % (Auto) 0.7 Neut # 4.4 Lymph # 0.8 L Sharkey # 0.9 H Eos # 0.0 Baso # 0.0 PT 24.2 H INR 2.1 APTT 44 H Sodium Potassium Chloride Carbon Dioxide Anion Gap BUN Creatinine Est GFR ( Amer) Est GFR (Non-Af Amer) POC Glucose (mg/dL) Random Glucose Serum Osmolality 295 Calcium Phosphorus Magnesium Total Bilirubin Direct Bilirubin GGT AST ALT Alkaline Phosphatase Ammonia Lactate Dehydrogenase Troponin I Total Protein Albumin Globulin Albumin/Globulin Ratio Alpha Fetoprotein Carcinoembryonic Ag CA 19-9 Antigen CA 125 Antigen Urine Color Urine Clarity Urine pH Ur Specific [place] Urine Protein Urine Glucose (UA) Urine Ketones Urine Blood Urine Nitrate Urine Bilirubin Urine Urobilinogen Ur Leukocyte Esterase Urine WBC (Auto) Urine RBC (Auto) Ur Squamous Epith Cells Urine Bacteria Hyaline Casts Urine HCG, Qual Urine Opiates Screen Urine Methadone Screen Ur Barbiturates Screen Ur Phencyclidine Scrn Ur Amphetamines Screen U Benzodiazepines Scrn U Oth Cocaine Metabols U Cannabinoids Screen Alcohol, Quantitative Hepatitis A IgM Ab Hep Bs Antigen Hep B Core IgM Ab Hepatitis C Antibody 09/09/16 09/09/16 09/09/16 06:44 06:44 06:44 WBC RBC Hgb Hct MCV MCH MCHC RDW Plt Count MPV Neut % (Auto) Lymph % (Auto) Sharkey % (Auto) Eos % (Auto) Baso % (Auto) Neut # Lymph # Sharkey # Eos # Baso # PT INR APTT Sodium 140 Potassium 3.8 Chloride 107 Carbon Dioxide 20 L Anion Gap 17 BUN 32 H Creatinine 1.2 Est GFR ( Amer) 58 Est GFR (Non-Af Amer) 48 POC Glucose (mg/dL) Random Glucose 93 Serum Osmolality Calcium 8.9 Phosphorus 3.0 Magnesium 2.1 Total Bilirubin 25.2 H Direct Bilirubin 21.4 H GGT 82 H AST 151 H D ALT 94 H Alkaline Phosphatase 144 H Ammonia Lactate Dehydrogenase Troponin I Total Protein 7.5 Albumin 3.1 L D Globulin 4.4 H Albumin/Globulin Ratio 0.7 L Alpha Fetoprotein 1.9 Carcinoembryonic Ag 12.2 H CA 19-9 Antigen 109 H D CA 125 Antigen 129 H D Urine Color Urine Clarity Urine pH Ur Specific [place] Urine Protein Urine Glucose (UA) Urine Ketones Urine Blood Urine Nitrate Urine Bilirubin Urine Urobilinogen Ur Leukocyte Esterase Urine WBC (Auto) Urine RBC (Auto) Ur Squamous Epith Cells Urine Bacteria Hyaline Casts Urine HCG, Qual Urine Opiates Screen Urine Methadone Screen Ur Barbiturates Screen Ur Phencyclidine Scrn Ur Amphetamines Screen U Benzodiazepines Scrn U Oth Cocaine Metabols U Cannabinoids Screen Alcohol, Quantitative Hepatitis A IgM Ab Negative Hep Bs Antigen Negative Hep B Core IgM Ab Negative Hepatitis C Antibody Reactive H 09/09/16 07:13 WBC RBC Hgb Hct MCV MCH MCHC RDW Plt Count MPV Neut % (Auto) Lymph % (Auto) Sharkey % (Auto) Eos % (Auto) Baso % (Auto) Neut # Lymph # Sharkey # Eos # Baso # PT INR APTT Sodium Potassium Chloride Carbon Dioxide Anion Gap BUN Creatinine Est GFR ( Amer) Est GFR (Non-Af Amer) POC Glucose (mg/dL) 118 H Random Glucose Serum Osmolality Calcium Phosphorus Magnesium Total Bilirubin Direct Bilirubin GGT AST ALT Alkaline Phosphatase Ammonia Lactate Dehydrogenase Troponin I Total Protein Albumin Globulin Albumin/Globulin Ratio Alpha Fetoprotein Carcinoembryonic Ag CA 19-9 Antigen CA 125 Antigen Urine Color Urine Clarity Urine pH Ur Specific [place] Urine Protein Urine Glucose (UA) Urine Ketones Urine Blood Urine Nitrate Urine Bilirubin Urine Urobilinogen Ur Leukocyte Esterase Urine WBC (Auto) Urine RBC (Auto) Ur Squamous Epith Cells Urine Bacteria Hyaline Casts Urine HCG, Qual Urine Opiates Screen Urine Methadone Screen Ur Barbiturates Screen Ur Phencyclidine Scrn Ur Amphetamines Screen U Benzodiazepines Scrn U Oth Cocaine Metabols U Cannabinoids Screen Alcohol, Quantitative Hepatitis A IgM Ab Hep Bs Antigen Hep B Core IgM Ab Hepatitis C Antibody Attending/Attestation - Attestation I have personally seen and examined this patient.: Yes I have fully participated in the care of the patient.: Yes I have reviewed all pertinent clinical information: Yes Notes (Text): Patient seen and examined with GI fellow. Agree with her note as documented above with the following additions/exceptions. This is a 51 year old female with h/o DM, HTN, asthma, seizure disorder, depression/anxiety, ETOH/hep C (GT4/ TN) cirrhosis complicated by history of varices/ascites who is admitted with confusion/encephalopathy and worsening jaundice/hyperbilirubinemia. She does admit to continued ETOH use. Her hepatitis C has never been treated and it does not appear that she follows with GI/hepatology on regular basis. Last EGD 2015 showed no varices (prior banding done in 2014). She is also noted to have acute kidney injury (last Cr 0.6 earlier this year, 1.4 on admission). No reported GI bleeding. She has encephalopathy, currently oriented to place. Her current MELD=40, DF >70. Agree with abdominal imaging/CT scan and abdominal ultrasound with duplex, r/o obstructive jaundice. She has never had triple phase liver imaging to r/o HCC. Recommend continued supportive care, given albumin yesterday, check urine electrolytes, volume challenge with albumin 1g/ kg. Monitor encephalopathy closely with frequent neurochecks. Continue lactulose, add rifaximin. Monitor for GI bleeding. Obtain diagnostic tap, r/o SBP, check blood/urine cultures. If no evidence of infection/obstruction, can consider steroid therapy for ETOH hepatitis. Monitor LFTs closely, obtain daily MELD labs. Repeat autoimmune serologies/HCV viral load. Dr. Tate discussed case with [facility], they accepted patient for transfer, awaiting bed. Overall prognosis is guarded. Will continue to follow and make recommendations pending clinical course. 09/09/16 11:41
[2016-09-09 07:20] LABS: POTASSIUM 3.8 mmol/L (3.6-5.2)
[2016-09-09 07:22] LABS: ALB/GLOB RATIO 0.7 (1.0-2.1); BILIRUBIN,DIRECT 21.4 mg/dL (0.0-0.4); BILIRUBIN,TOTAL 25.2 mg/dL (0.2-1.3); TOTAL PROTEIN 7.5 g/dL (6.3-8.3)
[2016-09-09 07:23] LABS: CALCIUM 8.9 mg/dl (8.6-10.4); MAGNESIUM 2.1 mg/dL (1.6-2.3)
--- NOTE | 2016-09-09 07:32 | CP.PCM.PN ---
<LizzieDhirajvirginia - Last Filed: 09/09/16 13:33> Subjective - Date & Time of Evaluation Date of Evaluation: 09/09/16 Time of Evaluation: 07:23 - Subjective Subjective: PGY 1 Medicine Note- Dr. Garcia's service Pt seen and examined in no apparent acute distress. Pt would like to eat something. Patient describes generalized abdominal discomfort. Otherwise, she states that she was drinking alcohol yesterday and cannot recall too much of the details. She states that she may have had a bowel movement yesterday but cannot recall when or how many times she may have passed a stool. Patient denies subjective fevers or chills,vomiting, diarrhea, paresthesias, lightheadedness, chest pain, palpitations at this time. Objective - Vital Signs/Intake and Output Vital Signs (last 24 hours): Temp Pulse Resp BP Pulse Ox 98.7 F 74 20 108/68 97 09/09/16 07:28 09/09/16 07:28 09/09/16 07:28 09/09/16 07:28 09/09/16 07:28 Intake and Output: 09/09/16 09/09/16 06:59 18:59 Intake Total 550 Output Total 3 Balance 547 - Medications Medications: Current Medications Folic Acid (Folic Acid) 1 mg PO DAILY [facility] Last Admin: 09/08/16 19:26 Dose: 1 mg Sodium Chloride (Sodium Chloride 0.9%) 1,000 mls @ 50 mls/hr IV .Q20H [facility] Last Admin: 09/08/16 22:33 Dose: 50 mls/hr Insulin Aspart (Novolog) 0 unit SC ACHS [facility] PRN Reason: Protocol Last Admin: 09/08/16 22:34 Dose: Not Given Lactulose (Enulose) 30 gm PO Q12 [facility] Multivitamins (Hexavitamin) 1 tab PO DAILY [facility] Last Admin: 09/08/16 19:26 Dose: 1 tab Ondansetron HCl (Zofran Inj) 4 mg IVP Q8H PRN PRN Reason: Nausea/Vomiting Pantoprazole Sodium (Protonix Ec Tab) 40 mg PO DAILY [facility] Pyridoxine HCl (Vitamin B6) 25 mg PO DAILY [facility] Last Admin: 09/08/16 19:27 Dose: 25 mg Thiamine HCl (Vitamin B1 Tab) 50 mg PO DAILY [facility] Last Admin: 09/08/16 19:26 Dose: 50 mg - Labs Labs: 09/09/16 06:44 09/09/16 06:44 PT 24.2 SECONDS (9.7-12.2) H 09/09/16 06:44 INR 2.1 09/09/16 06:44 APTT 44 SECONDS (21-34) H 09/09/16 06:44 - Constitutional Appears: Non-toxic, No Acute Distress - Head Exam Head Exam: ATRAUMATIC, NORMAL INSPECTION, NORMOCEPHALIC - Eye Exam Eye Exam: EOMI, PERRL, Scleral icterus Pupil Exam: PERRL - ENT Exam ENT Exam: Mucous Membranes Moist - Neck Exam Neck Exam: Full ROM - Respiratory Exam Respiratory Exam: absent: Wheezes - Cardiovascular Exam Cardiovascular Exam: +S1, +S2 - GI/Abdominal Exam GI & Abdominal Exam: Distended, Soft, Tenderness (diffusely). absent: Firm, Guarding, Mass - Extremities Exam Extremities Exam: Full ROM, Normal Capillary Refill - Back Exam Back Exam: Full ROM - Neurological Exam Neurological Exam: Alert, Awake, CN II-XII Intact, Oriented x3 - Psychiatric Exam Psychiatric exam: Flat Affect, Normal Affect, Normal Mood - Skin Skin Exam: Dry, Intact Additional comments: jaundiced Assessment and Plan - Assessment and Plan (Free Text) Assessment: Altered Mental Status Likely secondary to hepatic encephalopathy Ammonia: 57 on admssion. Recheck this morning 100. CT head w/o contrast: generalized atrophy. Nonspecific white matter changes. Right frontal encephalomalacia re-identified. The mastoid air cells are underpneuomatized Urine Tox: negative Alc quant: < 10 f/u blood culture and urine culture Lactulose 30gm po q1 until patient has a BM as per GI Albumin 12.5gm @ 25cc/hr Q[address] Agosto- F/U recommendations Alcoholic Cirrhosis GGTP 82 TBili 24.7 AST 151 ALT 94 Alk Phosphatase 144 Abdominal u/s- F/U CT chest, abdomen, pelvis w/o contrast: Advanced cirrhosis with findings suggestive of portal hypertension; Splenomegaly and multiple collateral vessels seein related to portal HTN; splenomegaly; Refer to complete report TBili 25.2 and Direct Bili 21.4 Tumor markers: AFP, CA 19-9, CEA, CA 125 ( all elevated) PT/INR 24.2/2.1 Monitor F/U immune marker studies Prednisolone 40 mg PO daily Xifaxan 550 mg PO BID Paracentesis cancelled- Patient did not have much fluid to attempt tap. Anemia of chronic disease Monitor H&H HGb 7.6 on 09/09. May require transfusion Hx of Alcohol abuse Folic acid 1mg po daily Multivitamin 1 tab po daily Vitamin B6 25mg po daily Thiamine 50mg po daily Zofran 4mg IVP Q8 PRN nausea/vomiting Hx of Hepatitis C Hep B negative HCV positive Never treated Hx of DM Accucheck ACHS low dose RISS f/u HgbA1c Hx of HTN hold home medications Acute Kidney Injury vs Hepatorenal Syndrome BUN/Cr : 47/1.4 on admission. Now 32/1.2. resolving with fluids NS @ 50cc/hr Albumin: 2.5 Albumin 12.5gm @ 25cc/hr Q2 f/u urine sodium, random creatitine, urine osmolality, serum osmolality f/u renal duplex complete and renal u/s PPX VTE ppx c/i SCDs Protonix 40mg po daily Strict Is and Os GI/Hepatic diet- protein 60gm/ Low salt diet [employer] Checker referral for malnourishment Disp: Per Dr. Rajan, patient accepted at [facility] in [place]. Awaiting a bed. <James Garcia - Last Filed: 09/09/16 14:53> Objective - Vital Signs/Intake and Output Vital Signs (last 24 hours): Temp Pulse Resp BP Pulse Ox 98.7 F 74 20 108/68 97 09/09/16 07:28 09/09/16 07:28 09/09/16 07:28 09/09/16 07:28 09/09/16 07:28 Intake and Output: 09/09/16 09/09/16 06:59 18:59 Intake Total 550 Output Total 3 Balance 547 - Medications Medications: Current Medications Folic Acid (Folic Acid) 1 mg PO DAILY [facility] Last Admin: 09/09/16 13:38 Dose: 1 mg Sodium Chloride (Sodium Chloride 0.9%) 1,000 mls @ 50 mls/hr IV .Q20H [facility] Last Admin: 09/09/16 13:39 Dose: Not Given Insulin Aspart (Novolog) 0 unit SC ACHS [facility] PRN Reason: Protocol Last Admin: 09/09/16 12:50 Dose: Not Given Lactulose (Enulose) 30 gm PO Q12 [facility] Last Admin: 09/09/16 13:38 Dose: 30 gm Multivitamins (Hexavitamin) 1 tab PO DAILY [facility] Last Admin: 09/09/16 13:38 Dose: 1 tab Ondansetron HCl (Zofran Inj) 4 mg IVP Q8H PRN PRN Reason: Nausea/Vomiting Pantoprazole Sodium (Protonix Ec Tab) 40 mg PO DAILY [facility] Last Admin: 09/09/16 13:37 Dose: 40 mg Prednisolone (Prednisolone) 40 mg PO DAILY [facility] Last Admin: 09/09/16 11:07 Dose: Not Given Pyridoxine HCl (Vitamin B6) 25 mg PO DAILY [facility] Last Admin: 09/09/16 13:38 Dose: 25 mg Rifaximin (Xifaxan) 550 mg PO BID [facility] Last Admin: 09/09/16 14:08 Dose: 550 mg Thiamine HCl (Vitamin B1 Tab) 50 mg PO DAILY [facility] Last Admin: 09/09/16 13:38 Dose: 50 mg - Labs Labs: 09/09/16 06:44 09/09/16 06:44 PT 24.2 SECONDS (9.7-12.2) H 09/09/16 06:44 INR 2.1 09/09/16 06:44 APTT 44 SECONDS (21-34) H 09/09/16 06:44 Attending/Attestation - Attestation I have personally seen and examined this patient.: Yes I have fully participated in the care of the patient.: Yes I have reviewed all pertinent clinical information, including history, physical exam and plan: Yes Notes (Text): 09/09/16 14:49 Medical attending: Patient was seen and examined by me, patient was seen with the medical insurance claims specialist and agree with the above note by the resident. Per my discussion with the nurse the patient has been getting lactulose and overnight has had several bowel movements. When we saw the patient she initially appeared to be very confused however after we asked her several times she was actually able to tell us the date, location, correctly. She was not in any acute distress however she still appeared to be somewhat off on her mental status. The ammonia level was found to be in the 50s, she currently on lactulose. A lot of the tumor markers that we ordered also elevated as well. When we saw the patient in the morning the CT scan of the abdomen and pelvis had not yet resulted, but since then it has and head suggestive of portal hypertension, splenomegaly, as well as a right kidney cyst. Currently were still waiting on the ultrasound study of the abdomen
[2016-09-09 07:51] LABS: CARCINOEMBRYONIC ANTIGEN 12.2 ng/mL (0-3.0)
[2016-09-09] MEDS: (Novolog) Insulin Aspart, Recombinant 100 u/ml 10 ml vial SC SCH ×4 (08:20→22:52)
[2016-09-09] MEDS ORDERED: PrednisoLONE 6 MG/2 ML SYR PO SCH (10:00)
[2016-09-09] MEDS ORDERED: Albumin Human 25% (12.5 gm/50 ml) IV SCH (10:00)
[2016-09-09] MEDS: Multiple Vitamins Tab PO SCH ×2 (11:07→13:38)
--- NOTE | 2016-09-09 11:07 | CARD ---
APPROVED REPORT EKG Measurement Heart [id number] <Conclusion> Normal sinus rhythm Normal ECG
[2016-09-09] MEDS: Pantoprazole 40 mg EC Tab PO SCH ×2 (11:08→13:37)
--- NOTE | 2016-09-09 13:04 | CT ---
PROCEDURE: CT Chest, Abdomen and Pelvis without intravenous contrast HISTORY: rule out neoplasm/mets COMPARISON: Comparison is made to the previous CT of the chest abdomen and pelvis dated 03/08/[address] of the abdomen and pelvis dated 06/27/2016 TECHNIQUE: Radiation dose: Total exam DLP = 297.16 mGy-cm. This CT exam was performed using one or more of the following dose reduction techniques: Automated exposure control, adjustment of the mA and/or kV according to patient size, and/or use of iterative reconstruction technique. FINDINGS: CT CHEST WITHOUT CONTRAST: LUNGS: No significant interval change in the lungs noted since the previous exam. [id number] emphysematous changes predominant in the upper lobes are again seen. No evidence of pneumonia or mass lesion in the lungs. MEDIASTINUM: Unremarkable. Normal caliber aorta and pulmonary arterial trunk. Normal size heart. LYMPH NODES: Unremarkable. PLEURA: Unremarkable. No pneumothorax. No pleural fluid. BONES: Unremarkable. OTHER FINDINGS: None. CT ABDOMEN AND PELVIS: LIVER: Advanced cirrhotic changes are again noted. There is re- cannulization of the paraumbilical veins in between the left and right liver lobes. No overt mass lesion in the liver in this noncontrast study. GALLBLADDER AND BILE DUCTS: Diffuse gallbladder wall thickening. Findings are nonspecific and may be related to soft tissue edema. The possibility of cholecystitis is not totally excluded also less likely. PANCREAS: Unremarkable. No gross lesion or ductal dilatation. SPLEEN: Splenomegaly is also noted likely secondary to portal hypertension and liver cirrhosis. The spleen measures 14.5 centimeter in the longitudinal diameter. ADRENALS: Unremarkable. No mass. KIDNEYS AND URETERS: There is suspicious for complex cystic lesion or mass protruding from the mid to upper pole right kidney measures 2.6 x 2.9 centimeter. No evidence of hydronephrosis or nephrolithiasis. VASCULATURE: Unremarkable. No aortic aneurysm. BOWEL: Unremarkable. No obstruction. No gross mural thickening. Mild constipation is noted. APPENDIX: No evidence of appendicitis . PERITONEUM: Unremarkable. No free fluid. No free air. LYMPH NODES: Unremarkable. No enlarged lymph nodes. BLADDER: Unremarkable. REPRODUCTIVE: Unremarkable. BONES: No acute fracture. OTHER FINDINGS: None. IMPRESSION: No evidence of significant interval change in the chest since the previous exam. Re- demonstration of advanced cirrhosis with findings suggestive for portal hypertension. Splenomegaly and multiple collateral vessels seen in the upper abdomen related to portal hypertension. Diffuse gallbladder wall thickening may be related to cirrhosis and soft tissue edema. If clinically warranted further assessment by ultrasound may be obtained. Suspicious for complex cyst or mass at the right kidney. Further assessment of the right kidney by ultrasound is recommended. Otherwise no significant interval change since the previous study.
[2016-09-09] MEDS: Sodium Chloride 0.9% 1,000 ML IV SCH ×2 (13:39→22:52)
[2016-09-09 14:00] LABS: IMMUNOGLOBULIN G 2010.5 mg/dL (700.0-1600.0); IMMUNOGLOBULIN M 348.7 mg/dL (40.0-230.0)
[2016-09-09 14:01] LABS: IMMUNOGLOBULIN A 331.7 mg/dL (70.0-400.0)
--- NOTE | 2016-09-09 15:27 | US ---
HISTORY: r/o obstruction COMPARISON: CT of the chest, abdomen, and pelvis without IV contrast performed 09/08/16, abdominal ultrasound performed 03/10/16 TECHNIQUE: Sonographic evaluation of the abdomen. FINDINGS: LIVER: Measures 14.3 cm in sagittal dimension. Echogenic liver may be seen in setting of hepatic parenchymal disease or fatty infiltration. Mildly nodular hepatic contour. No focal hepatic mass identified. The main portal vein appears patent with normal directional flow. Small ascites. GALLBLADDER: No gallstones. Gallbladder sludge. 2 mm echogenic focus without posterior acoustic shadowing, likely gallbladder polyp. Gallbladder wall appears thickened measuring up to 6 mm. Pericholecystic edema. Negative sonographic Bruner's sign as assessed by the junior electrical engineer. COMMON BILE DUCT: Measures 8 mm. Mild intrahepatic biliary ductal dilatation. PANCREAS: Not well visualized. RIGHT KIDNEY: Measures 10.4 x 4.2 x 5.0 cm. No obstructing calculus or hydronephrosis identified. LEFT KIDNEY: Measures 11.9 x 6.0 x 5.2 cm. No obstructing calculus or hydronephrosis identified. SPLEEN: Measures approximately 13.6 cm. AORTA: Limited views appear unremarkable. IVC: Limited views appear unremarkable. OTHER FINDINGS: None. IMPRESSION: Echogenic liver may be seen in setting of hepatic parenchymal disease or fatty infiltration. Mildly nodular hepatic contour. Correlate clinically for cirrhosis. Mild intrahepatic biliary ductal dilatation. Gallbladder wall thickening/pericholecystic edema. Gallbladder sludge. Tiny probable gallbladder polyp measuring approximately 2 mm. Negative sonographic Bruner's sign as assessed by the junior electrical engineer. Correlate clinically. Splenomegaly.
--- NOTE | 2016-09-10 06:11 | CP.PCM.PN ---
<Izzy Samuel - Last Filed: 09/10/16 12:41> Subjective - Date & Time of Evaluation Date of Evaluation: 09/10/16 Time of Evaluation: 06:25 - Subjective Subjective: PGY 1 Medicine Note- Dr. Garcia's service Pt seen and examined in no acute distress. Fiance present bedside . Patient denies any abdominal pain. Pt feels restless and thirsty. Patient had two loose brown bowel movements overnight per nursing. She denies headaches, chest pain, palpitations, nausea, vomiting, or constipation. Pt awaiting transfer to [facility]. Objective - Vital Signs/Intake and Output Vital Signs (last 24 hours): Temp Pulse Resp BP Pulse Ox 99.1 F 81 20 102/74 98 09/10/16 00:48 09/10/16 00:48 09/10/16 00:48 09/10/16 00:48 09/10/16 00:48 Intake and Output: 09/09/16 09/10/16 18:59 06:59 Intake Total 700 Balance 700 - Medications Medications: Current Medications Folic Acid (Folic Acid) 1 mg PO DAILY [facility] Last Admin: 09/09/16 13:38 Dose: 1 mg Sodium Chloride (Sodium Chloride 0.9%) 1,000 mls @ 50 mls/hr IV .Q20H [facility] Last Admin: 09/09/16 22:52 Dose: 50 mls/hr Insulin Aspart (Novolog) 0 unit SC ACHS [facility] PRN Reason: Protocol Last Admin: 09/09/16 22:52 Dose: Not Given Lactulose (Enulose) 30 gm PO Q12 [facility] Last Admin: 09/09/16 22:47 Dose: 30 gm Multivitamins (Hexavitamin) 1 tab PO DAILY [facility] Last Admin: 09/09/16 13:38 Dose: 1 tab Ondansetron HCl (Zofran Inj) 4 mg IVP Q8H PRN PRN Reason: Nausea/Vomiting Pantoprazole Sodium (Protonix Ec Tab) 40 mg PO DAILY [facility] Last Admin: 09/09/16 13:37 Dose: 40 mg Pyridoxine HCl (Vitamin B6) 25 mg PO DAILY [facility] Last Admin: 09/09/16 13:38 Dose: 25 mg Rifaximin (Xifaxan) 550 mg PO BID [facility] Last Admin: 09/09/16 18:33 Dose: 550 mg Thiamine HCl (Vitamin B1 Tab) 50 mg PO DAILY [facility] Last Admin: 09/09/16 13:38 Dose: 50 mg - Labs Labs: 09/09/16 06:44 09/09/16 06:44 PT 24.2 SECONDS (9.7-12.2) H 09/09/16 06:44 INR 2.1 09/09/16 06:44 APTT 44 SECONDS (21-34) H 09/09/16 06:44 - Constitutional Appears: Non-toxic, No Acute Distress - Head Exam Head Exam: ATRAUMATIC, NORMAL INSPECTION, NORMOCEPHALIC - Eye Exam Eye Exam: EOMI, Normal appearance, Scleral icterus Pupil Exam: NORMAL ACCOMODATION, PERRL - ENT Exam ENT Exam: Mucous Membranes Moist - Neck Exam Neck Exam: Full ROM - Respiratory Exam Respiratory Exam: NORMAL BREATHING PATTERN. absent: Wheezes - Cardiovascular Exam Cardiovascular Exam: REGULAR RHYTHM, +S1, +S2 - GI/Abdominal Exam GI & Abdominal Exam: Distended, Soft. absent: Firm, Guarding, Rigid, Tenderness - Extremities Exam Extremities Exam: Full ROM, Normal Capillary Refill. absent: Pedal Edema - Back Exam Back Exam: Full ROM - Neurological Exam Neurological Exam: Alert, Awake, CN II-XII Intact, Oriented x3 - Psychiatric Exam Psychiatric exam: Normal Affect - Skin Skin Exam: Dry, Warm. absent: Normal Color Additional comments: jaundiced Assessment and Plan - Assessment and Plan (Free Text) Assessment: Altered Mental Status Likely secondary to hepatic encephalopathy Ammonia: 57 on admission. Increased to 100 on 09/09 but now 48 on 09/10 CT head w/o contrast: generalized atrophy. Nonspecific white matter changes. Right frontal encephalomalacia re-identified. The mastoid air cells are underpneumatized Urine Tox: negative Alc quant: < 10 f/u blood culture and urine culture Lactulose 30gm po q1 until patient has a BM as per GI Albumin 12.5gm @ 25cc/hr Q[address] Agosto- F/U recommendations Alcoholic Cirrhosis GGTP 82 TBili 24.7 AST 151 ALT 94 Alk Phosphatase 144 Abdominal u/s- F/U CT chest, abdomen, pelvis w/o contrast: Advanced cirrhosis with findings suggestive of portal hypertension; Splenomegaly and multiple collateral vessels seein related to portal HTN; splenomegaly; Refer to complete report Bili elevated Tumor markers: AFP, CA 19-9, CEA, CA 125 ( all elevated) PT/INR 24.2/2.1 Monitor F/U immune marker studies: Elevated IgG and IgM Prednisolone 40 mg PO daily on board if patient remains afebrile Xifaxan 550 mg PO BID/ Lactulose- Titrate to 3 BMs a day Paracentesis cancelled- Patient did not have much fluid to attempt tap. Will benefit from triple phase CT of liver to rule out hepatocellular carcinoma F/U morning labs, coags, bilirubin Anemia of chronic disease Monitor H&H Hgb 6.7. Will transfuse 2 units PRBC Hx of Alcohol abuse Folic acid 1mg po daily Multivitamin 1 tab po daily Vitamin B6 25mg po daily Thiamine 50mg po daily Zofran 4mg IVP Q8 PRN nausea/vomiting Hx of Hepatitis C Hep B negative HCV positive Never treated Hx of DM Accucheck ACHS low dose RISS f/u HgbA1c Hx of HTN Hold home medications Acute Kidney Injury vs Hepatorenal Syndrome BUN/Cr Improved with fludis NS @ 50cc/hr Albumin: 2.5 Albumin 12.5gm @ 25cc/hr Q2 f/u urine sodium, random creatitine, urine osmolality, serum osmolality PPX VTE ppx c/i SCDs Protonix 40mg po daily Strict Is and Os GI/Hepatic diet- protein 60gm/ Low salt diet [employer] referral for malnourishment Disp: Per Dr. Rajan, patient accepted at [facility] in [place]. Awaiting a bed. <James Garcia - Last Filed: 09/10/16 15:41> Objective - Vital Signs/Intake and Output Vital Signs (last 24 hours): Temp Pulse Resp BP Pulse Ox 99.1 F 79 20 101/64 99 09/10/16 15:15 09/10/16 15:15 09/10/16 15:15 09/10/16 15:15 09/10/16 08:00 Intake and Output: 09/10/16 09/10/16 06:59 18:59 Intake Total 550 0 Output Total 2 Balance 548 0 - Medications Medications: Current Medications Folic Acid (Folic Acid) 1 mg PO DAILY [facility] Last Admin: 09/10/16 11:00 Dose: 1 mg Sodium Chloride (Sodium Chloride 0.9%) 1,000 mls @ 50 mls/hr IV .Q20H [facility] Last Admin: 09/10/16 12:23 Dose: Not Given Insulin Aspart (Novolog) 0 unit SC ACHS [facility] PRN Reason: Protocol Last Admin: 09/10/16 12:38 Dose: Not Given Lactulose (Enulose) 30 gm PO Q12 [facility] Last Admin: 09/10/16 10:59 Dose: 30 gm Multivitamins (Hexavitamin) 1 tab PO DAILY [facility] Last Admin: 09/10/16 11:00 Dose: 1 tab Ondansetron HCl (Zofran Inj) 4 mg IVP Q8H PRN PRN Reason: Nausea/Vomiting Pantoprazole Sodium (Protonix Ec Tab) 40 mg PO DAILY [facility] Last Admin: 09/10/16 11:00 Dose: 40 mg Pyridoxine HCl (Vitamin B6) 25 mg PO DAILY [facility] Last Admin: 09/10/16 11:00 Dose: 25 mg Rifaximin (Xifaxan) 550 mg PO BID [facility] Last Admin: 09/10/16 11:00 Dose: 550 mg Thiamine HCl (Vitamin B1 Tab) 50 mg PO DAILY [facility] Last Admin: 09/10/16 11:00 Dose: 50 mg - Labs Labs: 09/10/16 07:42 09/10/16 07:42 PT 24.2 SECONDS (9.7-12.2) H 09/09/16 06:44 INR 2.1 09/09/16 06:44 APTT 44 SECONDS (21-34) H 09/09/16 06:44 Attending/Attestation - Attestation I have personally seen and examined this patient.: Yes I have fully participated in the care of the patient.: Yes I have reviewed all pertinent clinical information, including history, physical exam and plan: Yes Notes (Text): 09/10/16 15:38 Medical attending: Patient was seen and examined by me, agrees the above note by medical device engineer. Patient's family member was present at bedside as well. According to this family members the patient's mental status was back to her baseline. She still however very jaundice with a lot of scleral icterus. However she is much more awake alert very talkative this morning when we saw her. She continues to be on lactulose and Xifaxan for hepatic encephalopathy. When we asked her if she's having bowel movements she says no however at the nurses explained to us that she has had several bowel movements this morning, and the family member at bedside also reports that the patient had bowel movements as well. Patient is anemic, and is pending a blood transfusion sometime today Her creatinine also decreased as well, the concern is for hepatorenal Currently pending transfer to [facility] Thank you very much, James Garcia
[2016-09-10] MEDS: (Novolog) Insulin Aspart, Recombinant 100 u/ml 10 ml vial SC SCH ×4 (07:40→22:44)
[2016-09-10 08:07] LABS: BASO # 0.1 K/uL (0.0-0.2); BASO % 0.8 % (0.0-2.0); EOS # 0.1 K/uL (0.0-0.7); EOS % 0.7 % (0.0-4.0); HEMATOCRIT 19.6 % (34.0-47.0); LYMPH # 1.4 K/uL (1.0-4.3); LYMPH % 19.5 % (20.0-40.0); MEAN CORPUSCULAR HEMOGLOBIN 39.9 pg (27.0-31.0); MEAN CORPUSCULAR HGB CONC 34.1 g/dL (33.0-37.0); MEAN PLATELET VOLUME 7.6 fL (7.2-11.7); MONO # 0.8 K/uL (0.0-0.8); MONO % 11.6 % (0.0-10.0); RED CELL DISTRIBUTION WIDTH 19.6 % (11.5-14.5)
[2016-09-10 08:09] LABS: CHLORIDE 109 mmol/L (98-107); SODIUM 139 mmol/L (132-148)
[2016-09-10 08:10] LABS: POTASSIUM 3.7 mmol/L (3.6-5.2)
[2016-09-10 08:12] LABS: ALB/GLOB RATIO 0.8 (1.0-2.1); ALKALINE PHOSPHATASE 106 U/L (38-126); AST/SGOT 118 U/L (14-36); BILIRUBIN,TOTAL 23.2 mg/dL (0.2-1.3); BLOOD UREA NITROGEN 17 mg/dL (7-17); CARBON DIOXIDE 18 mmol/L (22-30); GFR AFRICAN-AMERICAN > 60; GLUCOSE,RANDOM 89 mg/dL (65-105); PHOSPHOROUS 2.3 mg/dL (2.5-4.5); TOTAL PROTEIN 6.9 g/dL (6.3-8.3)
[2016-09-10 08:13] LABS: ALT/SGPT 79 U/L (9-52); CALCIUM 8.6 mg/dl (8.6-10.4); MAGNESIUM 2.1 mg/dL (1.6-2.3)
[2016-09-10 08:16] LABS: MEAN CELL VOLUME 116.9 fL (81.0-99.0)
[2016-09-10] MEDS: Multiple Vitamins Tab PO SCH (11:00)
[2016-09-10] MEDS: Pantoprazole 40 mg EC Tab PO SCH (11:00)
--- NOTE | 2016-09-10 11:23 | CP.PCM.PN ---
Subjective - Date & Time of Evaluation Date of Evaluation: 09/10/16 Time of Evaluation: 11:00 - Subjective Subjective: Patient seen and examined. No acute events overnight, she is seen resting in bed comfortably. She claims to have not had any bowel movements yesterday or overnight but after discussion with nursing staff this seems incorrect. She apparently had 2 loose brown bowel movements overnight during prior nursing shift. She denies abdominal pain, nausea, vomiting, fever/chills. Tolerating PO diet without difficulty. Review of vitals from today are normal, though temperature of 101 noted yesterday. 12 point review of systems performed, negative aside from mentioned above. Objective - Vital Signs/Intake and Output Vital Signs (last 24 hours): Temp Pulse Resp BP Pulse Ox 98.7 F 88 20 105/68 99 09/10/16 08:00 09/10/16 08:00 09/10/16 08:00 09/10/16 08:00 09/10/16 08:00 Intake and Output: 09/10/16 09/10/16 06:59 18:59 Intake Total 550 Output Total 2 Balance 548 - Medications Medications: Current Medications Folic Acid (Folic Acid) 1 mg PO DAILY [facility] Last Admin: 09/09/16 13:38 Dose: 1 mg Sodium Chloride (Sodium Chloride 0.9%) 1,000 mls @ 50 mls/hr IV .Q20H [facility] Last Admin: 09/09/16 22:52 Dose: 50 mls/hr Insulin Aspart (Novolog) 0 unit SC ACHS [facility] PRN Reason: Protocol Last Admin: 09/10/16 07:40 Dose: Not Given Lactulose (Enulose) 30 gm PO Q12 [facility] Last Admin: 09/09/16 22:47 Dose: 30 gm Multivitamins (Hexavitamin) 1 tab PO DAILY [facility] Last Admin: 09/09/16 13:38 Dose: 1 tab Ondansetron HCl (Zofran Inj) 4 mg IVP Q8H PRN PRN Reason: Nausea/Vomiting Pantoprazole Sodium (Protonix Ec Tab) 40 mg PO DAILY [facility] Last Admin: 09/09/16 13:37 Dose: 40 mg Pyridoxine HCl (Vitamin B6) 25 mg PO DAILY [facility] Last Admin: 09/09/16 13:38 Dose: 25 mg Rifaximin (Xifaxan) 550 mg PO BID [facility] Last Admin: 09/09/16 18:33 Dose: 550 mg Thiamine HCl (Vitamin B1 Tab) 50 mg PO DAILY [facility] Last Admin: 09/09/16 13:38 Dose: 50 mg - Labs Labs: 09/10/16 07:42 09/10/16 07:42 PT 24.2 SECONDS (9.7-12.2) H 09/09/16 06:44 INR 2.1 09/09/16 06:44 APTT 44 SECONDS (21-34) H 09/09/16 06:44 - Constitutional Appears: Non-toxic, No Acute Distress - Head Exam Head Exam: NORMAL INSPECTION - Eye Exam Eye Exam: Scleral icterus - ENT Exam ENT Exam: Mucous Membranes Moist - Respiratory Exam Respiratory Exam: Clear to Ausculation Bilateral - Cardiovascular Exam Cardiovascular Exam: REGULAR RHYTHM, +S1, +S2 - GI/Abdominal Exam GI & Abdominal Exam: Soft, Normal Bowel Sounds Additional comments: non tender to palpation in four quadrants - Extremities Exam Extremities Exam: Normal Inspection - Skin Additional comments: +jaundice Assessment and Plan - Assessment and Plan (Free Text) Assessment: ETOH/HCV decompensated cirrhosis Anemia HTN / DM Jaundice CT imaging reviewed by me showing cirrhotic liver without presence of ascites. GB wall thickening, complex cystic lesion of R kidney, splenomegaly Sepsis Plan: - H/H trending down, though no overt bleeding noted. Would transfuse 1 U PRBC and continue to monitor for time being. - Continue with PPI therapy - Low sodium diet as tolerated - Follow up blood/urine cultures - Continue with lactulose/xifaxan regimen for treatment of HE, titrate so patient has 3 bowel movements daily - Creatinine improving, continue to monitor - LFTs stable, continue to monitor, awaiting autoimmune panel - At some point patient will benefit from triple phase liver CT to rule out HCC - Therapy with prednisolone for acute ETOH hepatitis was deferred yesterday given febrile illness, though if blood cultures remain negative would suggest beginning therapy. May also consider trental as an alternate in this situation. - Patient accepted for transfer to [facility] liver service, awaiting bed availability - Overall prognosis for patient remains poor
[2016-09-10] MEDS: Sodium Chloride 0.9% 1,000 ML IV SCH (12:23)
[2016-09-10 18:46] LABS: HEMATOCRIT 23.8 % (34.0-47.0); MEAN CORPUSCULAR HEMOGLOBIN 36.8 pg (27.0-31.0); MEAN CORPUSCULAR HGB CONC 34.3 g/dL (33.0-37.0); MEAN PLATELET VOLUME 6.8 fL (7.2-11.7); RED CELL DISTRIBUTION WIDTH 26.5 % (11.5-14.5); WHITE BLOOD COUNT 6.7 K/uL (4.8-10.8)
[2016-09-10 18:58] LABS: MEAN CELL VOLUME 107.4 fL (81.0-99.0)
[2016-09-11 00:39] LABS: BASO % 0.6 % (0.0-2.0); EOS # 0.1 K/uL (0.0-0.7); HEMATOCRIT 31.3 % (34.0-47.0); LYMPH # 0.8 K/uL (1.0-4.3); LYMPH % 10.1 % (20.0-40.0); MEAN CELL VOLUME 101.3 fL (81.0-99.0); MEAN CORPUSCULAR HEMOGLOBIN 34.6 pg (27.0-31.0); MEAN CORPUSCULAR HGB CONC 34.2 g/dL (33.0-37.0); MEAN PLATELET VOLUME 7.3 fL (7.2-11.7); MONO # 0.9 K/uL (0.0-0.8); RED CELL DISTRIBUTION WIDTH 26.5 % (11.5-14.5)
[2016-09-11] MEDS: (Novolog) Insulin Aspart, Recombinant 100 u/ml 10 ml vial SC SCH ×4 (08:02→21:47)
[2016-09-11 08:26] LABS: BASO # 0.1 K/uL (0.0-0.2); BASO % 0.7 % (0.0-2.0); EOS # 0.1 K/uL (0.0-0.7); EOS % 1.2 % (0.0-4.0); HEMATOCRIT 29.3 % (34.0-47.0); LYMPH % 11.3 % (20.0-40.0); MEAN CELL VOLUME 100.8 fL (81.0-99.0); MEAN CORPUSCULAR HEMOGLOBIN 35.5 pg (27.0-31.0); MEAN CORPUSCULAR HGB CONC 35.2 g/dL (33.0-37.0); MEAN PLATELET VOLUME 7.2 fL (7.2-11.7); MONO % 11.7 % (0.0-10.0); RED CELL DISTRIBUTION WIDTH 27.7 % (11.5-14.5); WHITE BLOOD COUNT 8.6 K/uL (4.8-10.8)
[2016-09-11 08:39] LABS: INR 2.5
[2016-09-11 08:57] LABS: CHLORIDE 110 mmol/L (98-107)
[2016-09-11 08:59] LABS: POTASSIUM 3.9 mmol/L (3.6-5.2); SODIUM 136 mmol/L (132-148)
[2016-09-11 09:01] LABS: ALB/GLOB RATIO 0.7 (1.0-2.1); ALKALINE PHOSPHATASE 124 U/L (38-126); ALT/SGPT 67 U/L (9-52); AST/SGOT 115 U/L (14-36); BILIRUBIN,DIRECT 20.3 mg/dL (0.0-0.4); BILIRUBIN,TOTAL 25.4 mg/dL (0.2-1.3); BLOOD UREA NITROGEN 12 mg/dL (7-17); CARBON DIOXIDE 17 mmol/L (22-30); GFR AFRICAN-AMERICAN > 60; GLUCOSE,RANDOM 114 mg/dL (65-105); TOTAL PROTEIN 7.1 g/dL (6.3-8.3)
[2016-09-11 09:02] LABS: CALCIUM 8.6 mg/dl (8.6-10.4); MAGNESIUM 1.9 mg/dL (1.6-2.3); PHOSPHOROUS 2.3 mg/dL (2.5-4.5)
--- NOTE | 2016-09-11 09:17 | CP.PCM.PN ---
Addendum entered and electronically signed by Raissa Rajan DO 10:30: Increased Lactulose to QID, goal bowel movements of 3 per day Continue [id number] BID strict I&Os creatinine improved limit IVFs to prevent volume overload Original Note: <Raissa Rajan - Last Filed: 09/11/16 09:29> Subjective - Date & Time of Evaluation Date of Evaluation: 09/11/16 Time of Evaluation: 09:14 - Subjective Subjective: Gastroenterology Fellow/PGY4 Progress Note Patient oriented to person and place. Improving recall of president and month. Patient and nurse confirm one bowel movement yesterday. Nursing staff note recent loose bowel movement this morning. Tolerating diet. A 12-point review of systems negative except for as above. Objective - Vital Signs/Intake and Output Vital Signs (last 24 hours): Temp Pulse Resp BP Pulse Ox 98 F 93 H 20 117/69 100 09/11/16 08:00 09/11/16 08:00 09/11/16 08:00 09/11/16 08:00 09/11/16 08:00 Intake and Output: 09/11/16 09/11/16 06:59 18:59 Intake Total 725 Output Total 1 Balance 724 - Medications Medications: Current Medications Folic Acid (Folic Acid) 1 mg PO DAILY [facility] Last Admin: 09/10/16 11:00 Dose: 1 mg Sodium Chloride (Sodium Chloride 0.9%) 1,000 mls @ 50 mls/hr IV .Q20H [facility] Last Admin: 09/10/16 12:23 Dose: Not Given Insulin Aspart (Novolog) 0 unit SC ACHS [facility] PRN Reason: Protocol Last Admin: 09/11/16 08:02 Dose: Not Given Lactulose (Enulose) 30 gm PO QID [facility] Multivitamins (Hexavitamin) 1 tab PO DAILY [facility] Last Admin: 09/10/16 11:00 Dose: 1 tab Ondansetron HCl (Zofran Inj) 4 mg IVP Q8H PRN PRN Reason: Nausea/Vomiting Pantoprazole Sodium (Protonix Ec Tab) 40 mg PO DAILY [facility] Last Admin: 09/10/16 11:00 Dose: 40 mg Pyridoxine HCl (Vitamin B6) 25 mg PO DAILY [facility] Last Admin: 09/10/16 11:00 Dose: 25 mg Rifaximin (Xifaxan) 550 mg PO BID [facility] Last Admin: 09/10/16 18:17 Dose: 550 mg Thiamine HCl (Vitamin B1 Tab) 50 mg PO DAILY [facility] Last Admin: 09/10/16 11:00 Dose: 50 mg - Labs Labs: 09/11/16 08:05 09/11/16 08:05 PT 29.3 SECONDS (9.7-12.2) H D 09/11/16 08:05 INR 2.5 09/11/16 08:05 APTT 44 SECONDS (21-34) H 09/09/16 06:44 - Constitutional Appears: No Acute Distress, Chronically Ill - Head Exam Head Exam: ATRAUMATIC, NORMOCEPHALIC - Eye Exam Eye Exam: EOMI, PERRL, Scleral icterus Pupil Exam: PERRL. absent: Miosis, Mydriatic - ENT Exam ENT Exam: Mucous Membranes Dry, Normal Oropharynx - Neck Exam Neck Exam: Full ROM, Normal Inspection - Respiratory Exam Respiratory Exam: Clear to Ausculation Bilateral. absent: Rales, Rhonchi, Wheezes - Cardiovascular Exam Cardiovascular Exam: RRR, +S1, +S2. absent: Gallop, Rubs - GI/Abdominal Exam GI & Abdominal Exam: Soft, Hernia, Normal Bowel Sounds, Organomegaly. absent: Distended, Firm, Guarding, Rigid, Tenderness, Rebound Additional comments: umbilical hernia, mildly distended - Extremities Exam Extremities Exam: Full ROM. absent: Pedal Edema - Neurological Exam Neurological Exam: Alert, Awake Additional comments: oriented to person and place - Psychiatric Exam Psychiatric exam: Normal Affect, Normal Mood - Skin Skin Exam: Dry, Intact, Warm Additional comments: jaundice Assessment and Plan - Assessment and Plan (Free Text) Assessment: 51 year old female with history of Hypertension, Diabetes, Depression, Anxiety, recurrent decompensated cirrhosis (2/2 GI bleed, ascites, and hepatic encephalopathy) on Lasix/spironolactone 40/100, Hep C genotype 4a/4c/4d viral load 4915 (12/2015), esophageal varices 02/2015 on propranolol resolved on EGD presenting with confusion. Active treatment of decompensated cirrhosis secondary hepatic encephalopathy and renal insufficiency, and alcoholic hepatitis in setting of continued alcohol abuse. Prior EGD 02/2016 with one 5mm esophageal ulcer and one linear esophageal ulcer, and portal hypertensive gastropathy. Prior EGD 02/2015 with moderate esophageal varices and placement of 3 bands for ligation. Plan: >MELD 40 on admission, today 29 >DF 75.8 on admission, today 115 >infectious process rule dout >start Prednisolone 40mg daily >renal insufficiency improved (received albumin 5/3, 5/4) >daily LFTs, INR >Hepatitis C viral load pending >autoimmune workup pending >U/S and CT A/P - mild GB wall edema, CBD 7mm, no abdominal pain >close monitoring >low salt diet as tolerated >poor prognosis, recurrent decompensated alcoholic/HepC cirrhosis, alcoholic hepatitis >[facility] Hepatology Fellow- Dr. Saba [phone] >medicine team coordinating transfer to [facility] <Tristan Agosto - Last Filed: 09/11/16 10:43> Objective - Vital Signs/Intake and Output Vital Signs (last 24 hours): Temp Pulse Resp BP Pulse Ox 98 F 93 H 20 117/69 100 09/11/16 08:00 09/11/16 08:00 09/11/16 08:00 09/11/16 08:00 09/11/16 08:00 Intake and Output: 09/11/16 09/11/16 06:59 18:59 Intake Total 725 Output Total 1 Balance 724 - Medications Medications: Current Medications Folic Acid (Folic Acid) 1 mg PO DAILY [facility] Last Admin: 09/11/16 09:31 Dose: 1 mg Sodium Chloride (Sodium Chloride 0.9%) 1,000 mls @ 50 mls/hr IV .Q20H [facility] Last Admin: 09/10/16 12:23 Dose: Not Given Insulin Aspart (Novolog) 0 unit SC ACHS [facility] PRN Reason: Protocol Last Admin: 09/11/16 08:02 Dose: Not Given Lactulose (Enulose) 30 gm PO QID [facility] Last Admin: 09/11/16 09:31 Dose: 30 gm Multivitamins (Hexavitamin) 1 tab PO DAILY [facility] Last Admin: 09/11/16 09:31 Dose: 1 tab Ondansetron HCl (Zofran Inj) 4 mg IVP Q8H PRN PRN Reason: Nausea/Vomiting Pantoprazole Sodium (Protonix Ec Tab) 40 mg PO DAILY [facility] Last Admin: 09/11/16 09:31 Dose: 40 mg Prednisolone (Prednisolone) 40 mg PO DAILY [facility] Pyridoxine HCl (Vitamin B6) 25 mg PO DAILY [facility] Last Admin: 09/11/16 09:31 Dose: 25 mg Rifaximin (Xifaxan) 550 mg PO BID [facility] Last Admin: 09/11/16 09:31 Dose: 550 mg Thiamine HCl (Vitamin B1 Tab) 50 mg PO DAILY [facility] Last Admin: 09/11/16 09:32 Dose: 50 mg - Labs Labs: 09/11/16 08:05 09/11/16 08:05 PT 29.3 SECONDS (9.7-12.2) H D 09/11/16 08:05 INR 2.5 09/11/16 08:05 APTT 44 SECONDS (21-34) H 09/09/16 06:44 Attending/Attestation - Attestation I have personally seen and examined this patient.: Yes I have fully participated in the care of the patient.: Yes I have reviewed all pertinent clinical information, including history, physical exam and plan: Yes Notes (Text): Patient seen and examined with GI fellow. Agree with her note as documented above with the following additions/exceptions. This is a 51 year old female with h/o DM, HTN, asthma, seizure disorder, depression/anxiety, ETOH/hep C (GT4/ TN) cirrhosis complicated by history of varices/ascites who is admitted with confusion/encephalopathy and worsening jaundice/hyperbilirubinemia (MELD 40 on admission). She continues to drink ETOH. Her Cr is improving. Mental status is stable although still confused. She denies any new complaints this morning. Hb rosalee at 6.7 yesterday without overt GI blood loss, s/p PRBC transfusion ( now 10). She had large BM this morning, loose and non bloody. Would continue supportive care, titrate lactulose to 2-3 BM/day (will increase to QID today), continue rifaximin. Frequent neurochecks. Monitor for bleeding. Follow up cultures (neg to date). No recurrent fever. No tappable ascites. Obtain daily MELD labs (current MELD-Na 29). Low salt diet as tolerated. Medical team coordinating possible transfer to [facility]. Discussed with Dr. Garcia. 09/11/16 10:41
[2016-09-11] MEDS: Pantoprazole 40 mg EC Tab PO SCH (09:31)
[2016-09-11] MEDS: Multiple Vitamins Tab PO SCH (09:31)
[2016-09-11 10:45] LABS: CREATININE, RANDOM URINE 97.7 mg/dL
[2016-09-11] MEDS: PrednisoLONE 6 MG/2 ML SYR PO SCH (13:59)
[2016-09-11 14:02] LABS: SMOOTH MUSCLE AB TITER 1:20 Titer (< 1:20)
--- NOTE | 2016-09-11 16:15 | CP.PCM.PN ---
<MiguelChemo - Last Filed: 09/11/16 16:15> Subjective - Date & Time of Evaluation Date of Evaluation: 09/11/16 Time of Evaluation: 07:20 - Subjective Subjective: PGY [address] Garcia's service Patient seen and examined at bedside. No acute event overnight. Patient resting in bed comfortably with Fiance present bedside. Patient denies any abdominal pain. [facility] fellow Dr. Saba ([phone]) stated there is no indication for transfer at this time since patient is improving. Patient is poor transplant candidate. Denies headaches, chest pain, palpitations, nausea, vomiting, or constipation. Objective - Vital Signs/Intake and Output Vital Signs (last 24 hours): Temp Pulse Resp BP Pulse Ox 98 F 93 H 20 117/69 100 09/11/16 08:00 09/11/16 08:00 09/11/16 08:00 09/11/16 08:00 09/11/16 08:00 Intake and Output: 09/11/16 09/11/16 06:59 18:59 Intake Total 725 Output Total 1 Balance 724 - Medications Medications: Current Medications Folic Acid (Folic Acid) 1 mg PO DAILY [facility] Last Admin: 09/11/16 09:31 Dose: 1 mg Sodium Chloride (Sodium Chloride 0.9%) 1,000 mls @ 50 mls/hr IV .Q20H [facility] Last Admin: 09/10/16 12:23 Dose: Not Given Insulin Aspart (Novolog) 0 unit SC ACHS [facility] PRN Reason: Protocol Last Admin: 09/11/16 11:43 Dose: Not Given Lactulose (Enulose) 30 gm PO QID [facility] Last Admin: 09/11/16 13:58 Dose: 30 gm Multivitamins (Hexavitamin) 1 tab PO DAILY [facility] Last Admin: 09/11/16 09:31 Dose: 1 tab Ondansetron HCl (Zofran Inj) 4 mg IVP Q8H PRN PRN Reason: Nausea/Vomiting Pantoprazole Sodium (Protonix Ec Tab) 40 mg PO DAILY [facility] Last Admin: 09/11/16 09:31 Dose: 40 mg Prednisolone (Prednisolone) 40 mg PO DAILY [facility] Last Admin: 09/11/16 13:59 Dose: 40 mg Pyridoxine HCl (Vitamin B6) 25 mg PO DAILY [facility] Last Admin: 09/11/16 09:31 Dose: 25 mg Rifaximin (Xifaxan) 550 mg PO BID [facility] Last Admin: 09/11/16 09:31 Dose: 550 mg Thiamine HCl (Vitamin B1 Tab) 50 mg PO DAILY [facility] Last Admin: 09/11/16 09:32 Dose: 50 mg - Labs Labs: 09/11/16 08:05 09/11/16 08:05 PT 29.3 SECONDS (9.7-12.2) H D 09/11/16 08:05 INR 2.5 09/11/16 08:05 APTT 44 SECONDS (21-34) H 09/09/16 06:44 - Constitutional Appears: No Acute Distress - Head Exam Head Exam: ATRAUMATIC, NORMOCEPHALIC - Eye Exam Eye Exam: EOMI, Scleral icterus Pupil Exam: PERRL - ENT Exam ENT Exam: Mucous Membranes Moist - Neck Exam Neck Exam: Normal Inspection - Respiratory Exam Respiratory Exam: Clear to Ausculation Bilateral, NORMAL BREATHING PATTERN - Cardiovascular Exam Cardiovascular Exam: REGULAR RHYTHM, +S1, +S2 - GI/Abdominal Exam GI & Abdominal Exam: Soft, Tenderness, Normal Bowel Sounds - Extremities Exam Extremities Exam: Normal Capillary Refill. absent: Calf Tenderness - Back Exam Back Exam: absent: CVA tenderness (L), CVA tenderness (R) - Neurological Exam Neurological Exam: Alert, Awake, CN II-XII Intact, Oriented x3 - Psychiatric Exam Psychiatric exam: Normal Affect, Normal Mood - Skin Skin Exam: Dry, Intact, Warm Additional comments: jaundiced Assessment and Plan - Assessment and Plan (Free Text) Plan: 1. Altered Mental Status Likely secondary to hepatic encephalopathy Ammonia: 57 on admission. Increased to 100 on 09/09 but now 48 on 09/10 CT head w/o contrast: generalized atrophy. Nonspecific white matter changes. Right frontal encephalomalacia re-identified. The mastoid air cells are underpneumatized Urine Tox: negative Alc quant: < 10 Lactulose 30gm po q1 until patient has a BM as per GI Albumin 12.5gm @ 25cc/hr Q2 GI Consult Dr. Agosto- F/U recommendations 2. Alcoholic Cirrhosis GGTP 82 TBili 25.4 AST 111 ALT 67 Alk Phosphatase 124 Abdominal u/s- F/U CT chest, abdomen, pelvis w/o contrast: Advanced cirrhosis with findings suggestive of portal hypertension; Splenomegaly and multiple collateral vessels seein related to portal HTN; splenomegaly; Refer to complete report Tumor markers: AFP, CA 19-9, CEA, CA 125 ( all elevated) PT/INR 24.2/2.1 Monitor F/U immune marker studies: Elevated IgG and IgM Prednisolone 40 mg PO daily on board if patient remains afebrile Xifaxan 550 mg PO BID/ Lactulose- Titrate to 3 BMs a day Paracentesis cancelled- Patient did not have much fluid to attempt tap. Will benefit from triple phase CT of liver to rule out hepatocellular carcinoma F/U morning labs, coags, bilirubin 3. Anemia of chronic disease Monitor H&H Hgb 10.3 4. Hx of Alcohol abuse Folic acid 1mg po daily Multivitamin 1 tab po daily Vitamin B6 25mg po daily Thiamine 50mg po daily Zofran 4mg IVP Q8 PRN nausea/vomiting 5. Hx of Hepatitis C Hep B negative HCV positive Never treated 6. Hx of DM Accucheck ACHS low dose RISS HgbA1c 7. Hx of HTN Hold home medications 8. Acute Kidney Injury vs Hepatorenal Syndrome BUN/Cr 12/0.9 NS @ 50cc/hr Albumin: 2.5 Albumin 12.5gm @ 25cc/hr Q2 furine sodium 68 random creatitine 97.7 urine osmolality 463 9. Prophylactic Measures VTE ppx c/i SCDs Protonix 40mg po daily Strict Is and Os GI/Hepatic diet- protein 60gm/ Low salt diet Security Monitor referral for malnourishment <James Garcia - Last Filed: 09/11/16 17:31> Objective - Vital Signs/Intake and Output Vital Signs (last 24 hours): Temp Pulse Resp BP Pulse Ox 98.5 F 79 20 121/81 98 09/11/16 16:51 09/11/16 16:51 09/11/16 16:51 09/11/16 16:51 09/11/16 16:51 Intake and Output: 09/11/16 09/11/16 06:59 18:59 Intake Total 725 Output Total 1 Balance 724 - Medications Medications: Current Medications Folic Acid (Folic Acid) 1 mg PO DAILY [facility] Last Admin: 09/11/16 09:31 Dose: 1 mg Insulin Aspart (Novolog) 0 unit SC ACHS [facility] PRN Reason: Protocol Last Admin: 09/11/16 11:43 Dose: Not Given Lactulose (Enulose) 30 gm PO QID [facility] Last Admin: 09/11/16 13:58 Dose: 30 gm Multivitamins (Hexavitamin) 1 tab PO DAILY [facility] Last Admin: 09/11/16 09:31 Dose: 1 tab Ondansetron HCl (Zofran Inj) 4 mg IVP Q8H PRN PRN Reason: Nausea/Vomiting Pantoprazole Sodium (Protonix Ec Tab) 40 mg PO DAILY [facility] Last Admin: 09/11/16 09:31 Dose: 40 mg Prednisolone (Prednisolone) 40 mg PO DAILY [facility] Last Admin: 09/11/16 13:59 Dose: 40 mg Pyridoxine HCl (Vitamin B6) 25 mg PO DAILY [facility] Last Admin: 09/11/16 09:31 Dose: 25 mg Rifaximin (Xifaxan) 550 mg PO BID [facility] Last Admin: 09/11/16 09:31 Dose: 550 mg Thiamine HCl (Vitamin B1 Tab) 50 mg PO DAILY [facility] Last Admin: 09/11/16 09:32 Dose: 50 mg - Labs Labs: 09/11/16 08:05 09/11/16 08:05 PT 29.3 SECONDS (9.7-12.2) H D 09/11/16 08:05 INR 2.5 09/11/16 08:05 APTT 44 SECONDS (21-34) H 09/09/16 06:44 Attending/Attestation - Attestation I have personally seen and examined this patient.: Yes I have fully participated in the care of the patient.: Yes I have reviewed all pertinent clinical information, including history, physical exam and plan: Yes Notes (Text): 09/11/16 17:28 Medical Attending: Patient was seen and examined by me. Agree with the above note by the resident. Also discussed with GI as well as the patient and the patient's family at bedside. Because of improvment in numbers, renal function as well as mental status - it was discussed if the patient should still be moved to [facility] for potential further treatment. I explained to the family and patient that for now will wait and see if [facility] calls back again - however if by Wednesday or Wednesday does not then probably will DC to home, but if that were the case then she needs to follow up at the liver center / clinic there. Family states they did have an appointment over there already but have not yet been there thank you James Garcia
[2016-09-12] MEDS: Sodium Chloride 0.9% 1,000 ML IV SCH (01:00)
[2016-09-12 07:37] LABS: BASO % 0.1 % (0.0-2.0); EOS % 0.1 % (0.0-4.0); HEMATOCRIT 27.7 % (34.0-47.0); INR 2.5; LYMPH # 0.6 K/uL (1.0-4.3); LYMPH % 6.2 % (20.0-40.0); MEAN CELL VOLUME 102.2 fL (81.0-99.0); MEAN CORPUSCULAR HEMOGLOBIN 35.8 pg (27.0-31.0); MEAN PLATELET VOLUME 7.9 fL (7.2-11.7); MONO # 0.5 K/uL (0.0-0.8); MONO % 5.6 % (0.0-10.0); PLATELET COUNT 57 K/uL (130-400); RED CELL DISTRIBUTION WIDTH 27.8 % (11.5-14.5); WHITE BLOOD COUNT 9.6 K/uL (4.8-10.8)
[2016-09-12 07:49] LABS: CHLORIDE 111 mmol/L (98-107)
[2016-09-12 07:50] LABS: POTASSIUM 4.2 mmol/L (3.6-5.2); SODIUM 139 mmol/L (132-148)
[2016-09-12 07:52] LABS: ALB/GLOB RATIO 0.7 (1.0-2.1); ALKALINE PHOSPHATASE 120 U/L (38-126); AST/SGOT 87 U/L (14-36); BLOOD UREA NITROGEN 14 mg/dL (7-17); CARBON DIOXIDE 15 mmol/L (22-30); GFR AFRICAN-AMERICAN > 60; TOTAL PROTEIN 6.9 g/dL (6.3-8.3)
[2016-09-12 07:53] LABS: ALT/SGPT 71 U/L (9-52); CALCIUM 8.5 mg/dl (8.6-10.4); GLUCOSE,RANDOM 125 mg/dL (65-105); PHOSPHOROUS 3.3 mg/dL (2.5-4.5)
[2016-09-12] MEDS: (Novolog) Insulin Aspart, Recombinant 100 u/ml 10 ml vial SC SCH ×4 (08:31→21:23)
--- NOTE | 2016-09-12 08:42 | CP.PCM.PN ---
<Srinivas Lawson - Last Filed: 09/12/16 11:54> Subjective - Date & Time of Evaluation Date of Evaluation: 09/12/16 Time of Evaluation: 10:30 - Subjective Subjective: PGY4 GI Fellow Progress Note Patient seen and examined bedside this morning. The patient denies any new complaints. She is more alert today and answering questions more readily today. Sitting at bedside with fiance. No nausea, vomiting, abdominal pain. Passing multiple BM/day. 12 system ROS performed and negative except where stated. Objective - Vital Signs/Intake and Output Vital Signs (last 24 hours): Temp Pulse Resp BP Pulse Ox 98.7 F 71 20 115/68 97 09/12/16 00:00 09/12/16 00:00 09/12/16 00:00 09/12/16 00:00 09/12/16 00:00 - Medications Medications: Current Medications Folic Acid (Folic Acid) 1 mg PO DAILY [facility] Last Admin: 09/11/16 09:31 Dose: 1 mg Insulin Aspart (Novolog) 0 unit SC ACHS [facility] PRN Reason: Protocol Last Admin: 09/12/16 08:31 Dose: Not Given Lactulose (Enulose) 30 gm PO QID [facility] Last Admin: 09/11/16 21:47 Dose: 30 gm Multivitamins (Hexavitamin) 1 tab PO DAILY [facility] Last Admin: 09/11/16 09:31 Dose: 1 tab Ondansetron HCl (Zofran Inj) 4 mg IVP Q8H PRN PRN Reason: Nausea/Vomiting Pantoprazole Sodium (Protonix Ec Tab) 40 mg PO DAILY [facility] Last Admin: 09/11/16 09:31 Dose: 40 mg Prednisolone (Prednisolone) 40 mg PO DAILY [facility] Last Admin: 09/11/16 13:59 Dose: 40 mg Pyridoxine HCl (Vitamin B6) 25 mg PO DAILY [facility] Last Admin: 09/11/16 09:31 Dose: 25 mg Rifaximin (Xifaxan) 550 mg PO BID [facility] Last Admin: 09/11/16 18:28 Dose: 550 mg Thiamine HCl (Vitamin B1 Tab) 50 mg PO DAILY [facility] Last Admin: 09/11/16 09:32 Dose: 50 mg - Labs Labs: 09/12/16 07:18 09/12/16 07:18 PT 29.0 SECONDS (9.7-12.2) H 09/12/16 07:18 INR 2.5 09/12/16 07:18 APTT 44 SECONDS (21-34) H 09/09/16 06:44 - Constitutional Appears: No Acute Distress, Confused - Eye Exam Eye Exam: EOMI, PERRL, Scleral icterus - ENT Exam ENT Exam: Mucous Membranes Moist - Respiratory Exam Respiratory Exam: Clear to Ausculation Bilateral. absent: Rales, Rhonchi, Wheezes - Cardiovascular Exam Cardiovascular Exam: RRR, +S1, +S2 - GI/Abdominal Exam GI & Abdominal Exam: Distended, Soft, Normal Bowel Sounds. absent: Firm, Guarding, Rigid, Tenderness, Organomegaly - Extremities Exam Extremities Exam: Normal Inspection. absent: Pedal Edema - Neurological Exam Neurological Exam: Alert, Awake. absent: Oriented x3 - Psychiatric Exam Psychiatric exam: Normal Affect, Normal Mood - Skin Skin Exam: Dry, Warm Additional comments: jaundice Assessment and Plan - Assessment and Plan (Free Text) Assessment: Patient is a 51yo female with PMHx significant for decompensated EtOH/HCV (GT 4 ) cirrhosis with prior complications of ascites, esophageal varices and hepatic encephalopathy, active EtOH abuse up until admission, esophageal ulceration, portal hypertensive gastropathy who presented with altered mentation and jaundice. -Acute alcoholic hepatitis -Decompensated cirrhosis 2/2 EtOH abuse (ongoing) and HCV infection -Hepatic encephalopathy -VINCE, resolving -EtOH abuse -HCV infection -H/O esophageal ulceration Plan: -Infectious etiologies have been ruled out at this juncture, thus patient initiated on Prednisolone 40mg PO QD yesterday -She will require one month course of Prednisolone followed by taper -Continue to monitor CBC, CMP, INR daily -Suspect VINCE 2/2 ongoing EtOH use/volume depletion/diuretic use; resolving -Continue Lactulose 30mg PO QID, titrate to 3BM/day -Rifaximin 550mg PO BID -Would benefit from Triple Phase Liver CT, will order -Plan for EGD Wednesday -Transfer to [facility] has been cancelled as patient continues to improve -Protonix ordered despite risk for SBP given h/o severe esophageal ulceration -Not enough ascites for paracentesis *MELD-Na: 29 *MDF: 110.4 <Yonathan George MD - Last Filed: 09/12/16 15:01> Objective - Vital Signs/Intake and Output Vital Signs (last 24 hours): Temp Pulse Resp BP Pulse Ox 99.6 F 85 20 137/77 100 09/12/16 08:35 09/12/16 08:35 09/12/16 08:35 09/12/16 08:35 09/12/16 08:35 - Medications Medications: Current Medications Albumin Human (Albumin Human 25% (12.5 Gm/50 Ml)) 12.5 gm IV Q4 [facility] Stop: 09/13/16 12:01 Ciprofloxacin (Cipro) 500 mg PO BID [facility] Folic Acid (Folic Acid) 1 mg PO DAILY [facility] Last Admin: 09/12/16 10:59 Dose: 1 mg Insulin Aspart (Novolog) 0 unit SC ACHS [facility] PRN Reason: Protocol Last Admin: 09/12/16 12:45 Dose: 3 unit Lactulose (Enulose) 30 gm PO QID [facility] Last Admin: 09/12/16 10:58 Dose: 30 gm Multivitamins (Hexavitamin) 1 tab PO DAILY [facility] Last Admin: 09/12/16 10:58 Dose: 1 tab Ondansetron HCl (Zofran Inj) 4 mg IVP Q8H PRN PRN Reason: Nausea/Vomiting Pantoprazole Sodium (Protonix Ec Tab) 40 mg PO DAILY [facility] Last Admin: 09/12/16 10:58 Dose: 40 mg Prednisolone (Prednisolone) 40 mg PO DAILY [facility] Last Admin: 09/12/16 10:58 Dose: 40 mg Pyridoxine HCl (Vitamin B6) 25 mg PO DAILY [facility] Last Admin: 09/12/16 12:45 Dose: 25 mg Rifaximin (Xifaxan) 550 mg PO BID [facility] Last Admin: 09/12/16 10:58 Dose: 550 mg Thiamine HCl (Vitamin B1 Tab) 50 mg PO DAILY [facility] Last Admin: 09/12/16 10:58 Dose: 50 mg - Labs Labs: 09/12/16 07:18 09/12/16 07:18 PT 29.0 SECONDS (9.7-12.2) H 09/12/16 07:18 INR 2.5 09/12/16 07:18 APTT 44 SECONDS (21-34) H 09/09/16 06:44 Attending/Attestation - Attestation I have personally seen and examined this patient.: Yes I have fully participated in the care of the patient.: Yes I have reviewed all pertinent clinical information, including history, physical exam and plan: Yes Notes (Text): 09/12/16 14:54 Patient seen and examined with GI fellow. This is a 51 year old female with h/ o DM, HTN, asthma, seizure disorder, depression/anxiety, ETOH/hep C (GT4/TN) cirrhosis complicated by history of varices/ascites who is admitted with confusion/encephalopathy and worsening jaundice/hyperbilirubinemia (MELD 40 on admission). She continues to drink ETOH. Today seen at bedside alert and conversant with her partner. She denies alcohol drinking till 3 weeks ago. Her Cr is improving. She is having more than 3 BM/day. She denies any new complaints this morning. Hb rosalee at 6.7 yesterday without overt GI blood loss , s/p PRBC transfusion (now 10). She has been denied transfer to [facility] due to improvement in clinical status. Her outpatient follow up has been non compliant. Her last EGd in Feb 2016 had shown distal esophagus ulcer. She has not had repeat EGD. Will schedule for inpatient EGD on Wednesday Would continue supportive care, titrate lactulose to 2-3 BM/day, continue rifaximin. Frequent neurochecks. Monitor for bleeding. Follow up cultures (neg to date). No recurrent fever. No tappable ascites. Obtain daily MELD labs (current MELD-Na 29). Low salt diet as tolerated. Discussed with Dr. Garcia.
[2016-09-12 09:22] LABS: NEUTROPHIL 87 % (50-75); TOTAL CELLS COUNTED 100
[2016-09-12 09:25] LABS: LARGE PLATELETS PRESENT
[2016-09-12] MEDS: PrednisoLONE 6 MG/2 ML SYR PO SCH (10:58)
[2016-09-12] MEDS: Pantoprazole 40 mg EC Tab PO SCH (10:58)
[2016-09-12] MEDS: Multiple Vitamins Tab PO SCH (10:58)
--- NOTE | 2016-09-12 13:06 | CP.PCM.PN ---
<Ana Ahumada - Last Filed: 09/12/16 12:59> Subjective - Date & Time of Evaluation Date of Evaluation: 09/12/16 Time of Evaluation: 10:30 - Subjective Subjective: PGY2 Medicine Note - Dr. Garcia's service: Patient seen and examined at bedside this AM. Patient says she feels good and has been having 1 bowel movement per day. Patient knows where she is and who the president is. Patient said it was 2006. Patient denies fever, chills, chest pain, weakness, SOB, abdominal pain, dysuria. Objective - Vital Signs/Intake and Output Vital Signs (last 24 hours): Temp Pulse Resp BP Pulse Ox 99.6 F 85 20 137/77 100 09/12/16 08:35 09/12/16 08:35 09/12/16 08:35 09/12/16 08:35 09/12/16 08:35 - Medications Medications: Current Medications Folic Acid (Folic Acid) 1 mg PO DAILY [facility] Last Admin: 09/12/16 10:59 Dose: 1 mg Insulin Aspart (Novolog) 0 unit SC ACHS [facility] PRN Reason: Protocol Last Admin: 09/12/16 08:31 Dose: Not Given Lactulose (Enulose) 30 gm PO QID [facility] Last Admin: 09/12/16 10:58 Dose: 30 gm Multivitamins (Hexavitamin) 1 tab PO DAILY [facility] Last Admin: 09/12/16 10:58 Dose: 1 tab Ondansetron HCl (Zofran Inj) 4 mg IVP Q8H PRN PRN Reason: Nausea/Vomiting Pantoprazole Sodium (Protonix Ec Tab) 40 mg PO DAILY [facility] Last Admin: 09/12/16 10:58 Dose: 40 mg Prednisolone (Prednisolone) 40 mg PO DAILY [facility] Last Admin: 09/12/16 10:58 Dose: 40 mg Pyridoxine HCl (Vitamin B6) 25 mg PO DAILY [facility] Last Admin: 09/11/16 09:31 Dose: 25 mg Rifaximin (Xifaxan) 550 mg PO BID [facility] Last Admin: 09/12/16 10:58 Dose: 550 mg Thiamine HCl (Vitamin B1 Tab) 50 mg PO DAILY [facility] Last Admin: 09/12/16 10:58 Dose: 50 mg - Labs Labs: 09/12/16 07:18 09/12/16 07:18 PT 29.0 SECONDS (9.7-12.2) H 09/12/16 07:18 INR 2.5 09/12/16 07:18 APTT 44 SECONDS (21-34) H 09/09/16 06:44 - Constitutional Appears: Non-toxic, No Acute Distress - Head Exam Head Exam: NORMAL INSPECTION - Eye Exam Eye Exam: EOMI, Scleral icterus - ENT Exam ENT Exam: Mucous Membranes Moist - Respiratory Exam Respiratory Exam: Clear to Ausculation Bilateral, NORMAL BREATHING PATTERN. absent: Rales, Rhonchi, Wheezes - Cardiovascular Exam Cardiovascular Exam: REGULAR RHYTHM, +S1, +S2 - GI/Abdominal Exam GI & Abdominal Exam: Soft, Normal Bowel Sounds. absent: Tenderness - Extremities Exam Extremities Exam: Normal Capillary Refill. absent: Pedal Edema - Neurological Exam Neurological Exam: Alert, Awake - Psychiatric Exam Psychiatric exam: Normal Affect, Normal Mood - Skin Additional comments: jaundiced Assessment and Plan - Assessment and Plan (Free Text) Assessment: 1. AMS Likely secondary to hepatic encephalopathy Ammonia: 57 on admission. Increased to 100 on 09/09 but now 48 on 09/10 F/U ammonia level today CT head w/o contrast: generalized atrophy. Nonspecific white matter changes. Right frontal encephalomalacia re-identified. The mastoid air cells are underpneumatized Urine Tox: negative Alc quant: < 10 Lactulose 30gm po q6h until patient has a BM 3 times per day as per GI GI Consult Dr. Agosto- help appreciated 2. Alcoholic Cirrhosis GGTP 82 TBili 25.4 AST 111 ALT 67 Alk Phosphatase 124 Abdominal u/s- echogenic liver may be seen in setting of hepatic parenchymal disease or fatty infiltration. mildly nodular hepatic contour. mild intrahepatic biliary ductal dilatation. gallbladder wall thickening/ pericholecystic edema. gallbladder sludge. tiny proabably gallbladder polyp measuring approximately 2mm. Negative sonographic Bruner's sign as assessed by the bioinformatics scientist. Splenomegaly. CT chest, abdomen, pelvis w/o contrast: Advanced cirrhosis with findings suggestive of portal hypertension; Splenomegaly and multiple collateral vessels seein related to portal HTN; splenomegaly; Refer to complete report Tumor markers: AFP, CA 19-9, CEA, CA 125 ( all elevated) PT/INR 29/2.5 Monitor F/U immune marker studies: Elevated IgG and IgM Prednisolone 40 mg PO daily started 09/11/16 Xifaxan 550 mg PO BID/ Lactulose- Titrate to 3 BMs a day Paracentesis cancelled- Patient did not have much fluid to attempt tap. Will benefit from triple phase CT of liver to rule out hepatocellular carcinoma F/U morning labs, coags, bilirubin 3. Anemia of chronic disease Monitor H&H Hgb 9.7 Patient has history of bleeding ulcers per GI Endoscopy for Wednesday 4. Hx of Alcohol abuse Folic acid 1mg po daily Multivitamin 1 tab po daily Vitamin B6 25mg po daily Thiamine 50mg po daily Zofran 4mg IVP Q8 PRN nausea/vomiting 5. Hx of Hepatitis C Hep B negative HCV positive Never treated GI on board 6. Hx of DM Accucheck ACHS low dose RISS HgbA1c 7. Hx of HTN Hold home medications 8. Acute Kidney Injury vs Hepatorenal Syndrome BUN/Cr 14/0.7 NS @ 50cc/hr Albumin: 2.7 Albumin 12.5gm @ 25cc/hr Q4 x 6 doses furine sodium 68 random creatitine 97.7 urine osmolality 463 9. Prophylactic Measures VTE ppx c/i SCDs Protonix 40mg po daily Strict Is and Os GI/Hepatic diet- protein 60gm/ Low salt diet Esl Teacher referral for malnourishment <James Garcia - Last Filed: 09/12/16 14:51> Objective - Vital Signs/Intake and Output Vital Signs (last 24 hours): Temp Pulse Resp BP Pulse Ox 99.6 F 85 20 137/77 100 09/12/16 08:35 09/12/16 08:35 09/12/16 08:35 09/12/16 08:35 09/12/16 08:35 - Medications Medications: Current Medications Albumin Human (Albumin Human 25% (12.5 Gm/50 Ml)) 12.5 gm IV Q4 [facility] Stop: 09/13/16 12:01 Ciprofloxacin (Cipro) 500 mg PO BID [facility] Folic Acid (Folic Acid) 1 mg PO DAILY [facility] Last Admin: 09/12/16 10:59 Dose: 1 mg Insulin Aspart (Novolog) 0 unit SC ACHS [facility] PRN Reason: Protocol Last Admin: 09/12/16 12:45 Dose: 3 unit Lactulose (Enulose) 30 gm PO QID [facility] Last Admin: 09/12/16 10:58 Dose: 30 gm Multivitamins (Hexavitamin) 1 tab PO DAILY [facility] Last Admin: 09/12/16 10:58 Dose: 1 tab Ondansetron HCl (Zofran Inj) 4 mg IVP Q8H PRN PRN Reason: Nausea/Vomiting Pantoprazole Sodium (Protonix Ec Tab) 40 mg PO DAILY [facility] Last Admin: 09/12/16 10:58 Dose: 40 mg Prednisolone (Prednisolone) 40 mg PO DAILY [facility] Last Admin: 09/12/16 10:58 Dose: 40 mg Pyridoxine HCl (Vitamin B6) 25 mg PO DAILY [facility] Last Admin: 09/12/16 12:45 Dose: 25 mg Rifaximin (Xifaxan) 550 mg PO BID [facility] Last Admin: 09/12/16 10:58 Dose: 550 mg Thiamine HCl (Vitamin B1 Tab) 50 mg PO DAILY [facility] Last Admin: 09/12/16 10:58 Dose: 50 mg - Labs Labs: 09/12/16 07:18 09/12/16 07:18 PT 29.0 SECONDS (9.7-12.2) H 09/12/16 07:18 INR 2.5 09/12/16 07:18 APTT 44 SECONDS (21-34) H 09/09/16 06:44 Attending/Attestation - Attestation I have personally seen and examined this patient.: Yes I have fully participated in the care of the patient.: Yes I have reviewed all pertinent clinical information, including history, physical exam and plan: Yes Notes (Text): Medical Attending: Patient was seen and examined by me, agree with the above note by the resident. The patient was standing up at bedside. Family present. She reported feeling ok and family reported her mental status was much better. Per communication with [facility] because mental status and lab work is improved she will not be transferred to [facility]. Was started on prednisolone PO yesterday. EGD is planned by GI this coming Wednesday.
[2016-09-12] MEDS: Albumin Human 25% (12.5 gm/50 ml) IV SCH ×2 (17:44→21:22)
[2016-09-12] MEDS ORDERED: Iodixanol 320 MG/ML 100 ML BOTTLE IV ONE (17:59)
[2016-09-12 20:15] LABS: LKM-1 Ab (IgG) <=20.0 U (<=20.0)
[2016-09-13] MEDS: Albumin Human 25% (12.5 gm/50 ml) IV SCH ×3 (00:05→11:21)
[2016-09-13 06:58] LABS: BASO % 0.2 % (0.0-2.0); EOS % 0.1 % (0.0-4.0); HEMATOCRIT 25.4 % (34.0-47.0); LYMPH # 0.6 K/uL (1.0-4.3); LYMPH % 5.5 % (20.0-40.0); MEAN CELL VOLUME 103.2 fL (81.0-99.0); MEAN CORPUSCULAR HEMOGLOBIN 35.3 pg (27.0-31.0); MEAN CORPUSCULAR HGB CONC 34.2 g/dL (33.0-37.0); MONO # 0.9 K/uL (0.0-0.8); MONO % 7.7 % (0.0-10.0); PLATELET COUNT 59 K/uL (130-400); RED CELL DISTRIBUTION WIDTH 27.6 % (11.5-14.5); WHITE BLOOD COUNT 11.5 K/uL (4.8-10.8)
[2016-09-13 07:07] LABS: INR 2.5
[2016-09-13 07:10] LABS: CHLORIDE 111 mmol/L (98-107); POTASSIUM 3.8 mmol/L (3.6-5.2); SODIUM 142 mmol/L (132-148)
[2016-09-13 07:12] LABS: BILIRUBIN,TOTAL 18.7 mg/dL (0.2-1.3); GFR AFRICAN-AMERICAN > 60
[2016-09-13 07:13] LABS: ALB/GLOB RATIO 0.8 (1.0-2.1); ALKALINE PHOSPHATASE 85 U/L (38-126); ALT/SGPT 64 U/L (9-52); AST/SGOT 63 U/L (14-36); BLOOD UREA NITROGEN 17 mg/dL (7-17); CARBON DIOXIDE 16 mmol/L (22-30); GLUCOSE,RANDOM 106 mg/dL (65-105); TOTAL PROTEIN 6.7 g/dL (6.3-8.3)
[2016-09-13 07:14] LABS: CALCIUM 9.6 mg/dl (8.6-10.4)
[2016-09-13] MEDS: (Novolog) Insulin Aspart, Recombinant 100 u/ml 10 ml vial SC SCH ×4 (08:30→21:57)
[2016-09-13 08:46] LABS: HEPATITIS C VIRAL RNA QUAL Detected
[2016-09-13 08:54] LABS: NEUTROPHIL 91 % (50-75); TOTAL CELLS COUNTED 100
[2016-09-13 08:56] LABS: LARGE PLATELETS PRESENT
--- NOTE | 2016-09-13 10:39 | CP.PCM.PN ---
<Srinivas Lawson - Last Filed: 09/13/16 12:11> Subjective - Date & Time of Evaluation Date of Evaluation: 09/13/16 Time of Evaluation: 10:34 - Subjective Subjective: PGY4 GI Fellow Progress Note Patient seen and examined bedside this morning. The patient states that she is feeling well and has no complaints at present. Discussed alcohol use and effect on liver/kidneys and she states now that the last drink was 1 month ago. Fiance at bedside who helps reinforce importance of cessation. No issues overnight. 12 system ROS performed and negative except where stated. Objective - Vital Signs/Intake and Output Vital Signs (last 24 hours): Temp Pulse Resp BP Pulse Ox 99.1 F 97 H 20 123/77 100 09/13/16 07:44 09/13/16 07:44 09/13/16 07:44 09/13/16 07:44 09/13/16 07:44 Intake and Output: 09/13/16 09/13/16 06:59 18:59 Intake Total 800 Output Total 400 Balance 400 - Medications Medications: Current Medications Albumin Human (Albumin Human 25% (12.5 Gm/50 Ml)) 12.5 gm IV Q4 [facility] Stop: 09/13/16 12:01 Last Admin: 09/13/16 04:08 Dose: 12.5 gm Ciprofloxacin (Cipro) 500 mg PO BID [facility] Last Admin: 09/12/16 17:36 Dose: 500 mg Folic Acid (Folic Acid) 1 mg PO DAILY [facility] Last Admin: 09/12/16 10:59 Dose: 1 mg Insulin Aspart (Novolog) 0 unit SC ACHS [facility] PRN Reason: Protocol Last Admin: 09/13/16 08:30 Dose: 3 unit Lactulose (Enulose) 30 gm PO QID [facility] Last Admin: 09/12/16 21:24 Dose: 30 gm Multivitamins (Hexavitamin) 1 tab PO DAILY [facility] Last Admin: 09/12/16 10:58 Dose: 1 tab Ondansetron HCl (Zofran Inj) 4 mg IVP Q8H PRN PRN Reason: Nausea/Vomiting Pantoprazole Sodium (Protonix Ec Tab) 40 mg PO DAILY [facility] Last Admin: 09/12/16 10:58 Dose: 40 mg Prednisolone (Prednisolone) 40 mg PO DAILY [facility] Last Admin: 09/12/16 10:58 Dose: 40 mg Pyridoxine HCl (Vitamin B6) 25 mg PO DAILY [facility] Last Admin: 09/12/16 12:45 Dose: 25 mg Rifaximin (Xifaxan) 550 mg PO BID [facility] Last Admin: 09/12/16 17:39 Dose: 550 mg Thiamine HCl (Vitamin B1 Tab) 50 mg PO DAILY [facility] Last Admin: 09/12/16 10:58 Dose: 50 mg - Labs Labs: 09/13/16 06:50 09/13/16 06:50 PT 28.5 SECONDS (9.7-12.2) H 09/13/16 06:50 INR 2.5 09/13/16 06:50 APTT 48 SECONDS (21-34) H 09/13/16 06:50 - Constitutional Appears: No Acute Distress - Eye Exam Eye Exam: EOMI, PERRL, Scleral icterus - ENT Exam ENT Exam: Mucous Membranes Moist - Respiratory Exam Respiratory Exam: Clear to Ausculation Bilateral. absent: Rales, Rhonchi, Wheezes - Cardiovascular Exam Cardiovascular Exam: RRR, +S1, +S2 - GI/Abdominal Exam GI & Abdominal Exam: Distended, Soft, Normal Bowel Sounds. absent: Firm, Guarding, Rigid, Tenderness, Organomegaly - Extremities Exam Extremities Exam: Normal Inspection. absent: Pedal Edema - Neurological Exam Neurological Exam: Alert, Awake, Oriented x3 - Psychiatric Exam Psychiatric exam: Normal Affect, Normal Mood - Skin Skin Exam: Dry, Warm Assessment and Plan - Assessment and Plan (Free Text) Assessment: Patient is a 51yo female with PMHx significant for decompensated EtOH/HCV (GT 4 ) cirrhosis with prior complications of ascites, esophageal varices and hepatic encephalopathy, active EtOH abuse up until admission, esophageal ulceration, portal hypertensive gastropathy who presented with altered mentation and jaundice. -Acute alcoholic hepatitis -Decompensated cirrhosis 2/2 EtOH abuse (ongoing) and HCV infection -Hepatic encephalopathy -VINCE, resolving -EtOH abuse -HCV infection -H/O esophageal ulceration Plan: -Cont Prednisolone 40mg PO QD x 1 month, taper to follow -Continue to monitor CBC, CMP, INR daily -3 units FFP ordered and held, to be given pre-operatively prior to EGD tomorrow -NPO past MN, EGD in AM -VINCE resolved -Continue Lactulose 30mg PO QID, titrate to 3BM/day -Rifaximin 550mg PO BID -Cannot perform triple phase CT as patient allergic to contrast, consider MRI with gadolinium -Protonix ordered despite risk for SBP given h/o severe esophageal ulceration -Will resume diuretic therapy, monitor kidney function closely -Stressed importance of EtOH cessation and outpatient follow up *MELD-Na: 28 *MDF: 103.6 <Yonathan George MD - Last Filed: 09/13/16 15:59> Objective - Vital Signs/Intake and Output Vital Signs (last 24 hours): Temp Pulse Resp BP Pulse Ox 99.1 F 97 H 20 123/77 100 09/13/16 07:44 09/13/16 07:44 09/13/16 07:44 09/13/16 07:44 09/13/16 07:44 Intake and Output: 09/13/16 09/13/16 06:59 18:59 Intake Total 800 Output Total 400 Balance 400 - Medications Medications: Current Medications Ciprofloxacin (Cipro) 500 mg PO BID [facility] Last Admin: 09/13/16 10:55 Dose: 500 mg Folic Acid (Folic Acid) 1 mg PO DAILY [facility] Last Admin: 09/13/16 10:55 Dose: 1 mg Insulin Aspart (Novolog) 0 unit SC ACHS [facility] PRN Reason: Protocol Last Admin: 09/13/16 12:35 Dose: 1 unit Lactulose (Enulose) 30 gm PO QID [facility] Last Admin: 09/13/16 14:01 Dose: 30 gm Multivitamins (Hexavitamin) 1 tab PO DAILY [facility] Last Admin: 09/13/16 10:54 Dose: 1 tab Ondansetron HCl (Zofran Inj) 4 mg IVP Q8H PRN PRN Reason: Nausea/Vomiting Pantoprazole Sodium (Protonix Ec Tab) 40 mg PO DAILY [facility] Last Admin: 09/13/16 10:55 Dose: 40 mg Prednisolone (Prednisolone) 40 mg PO DAILY [facility] Last Admin: 09/13/16 10:55 Dose: 40 mg Pyridoxine HCl (Vitamin B6) 25 mg PO DAILY [facility] Last Admin: 09/13/16 10:54 Dose: 25 mg Rifaximin (Xifaxan) 550 mg PO BID [facility] Last Admin: 09/13/16 10:54 Dose: 550 mg Thiamine HCl (Vitamin B1 Tab) 50 mg PO DAILY [facility] Last Admin: 09/13/16 10:54 Dose: 50 mg - Labs Labs: 09/13/16 06:50 09/13/16 06:50 PT 28.5 SECONDS (9.7-12.2) H 09/13/16 06:50 INR 2.5 09/13/16 06:50 APTT 48 SECONDS (21-34) H 09/13/16 06:50 Attending/Attestation - Attestation I have personally seen and examined this patient.: Yes I have fully participated in the care of the patient.: Yes I have reviewed all pertinent clinical information, including history, physical exam and plan: Yes Notes (Text): 09/13/16 15:56 Patient seen and examined with GI fellow. This is a 51 year old female with h/ o DM, HTN, asthma, seizure disorder, depression/anxiety, ETOH/hep C (GT4/TN) cirrhosis complicated by history of varices/ascites who is admitted with confusion/encephalopathy and worsening jaundice/hyperbilirubinemia (MELD 40 on admission). She continues to drink ETOH. Today seen at bedside alert and conversant with her partner. She denies alcohol drinking till 3 weeks ago. Her Cr is improving. She is having more than 3 BM/day. She denies any new complaints this morning. Hb rosalee at 6.7 yesterday without overt GI blood loss , s/p PRBC transfusion (now 10). She has been denied transfer to [facility] due to improvement in clinical status. Her outpatient follow up has been non compliant. Her last EGd in Feb 2016 had shown distal esophagus ulcer. She has not had repeat EGD. Will schedule for inpatient EGD on Wednesday Would continue supportive care, titrate lactulose to 2-3 BM/day, continue rifaximin. Frequent neurochecks. Monitor for bleeding. Follow up cultures (neg to date). No recurrent fever. No tappable ascites. Obtain daily MELD labs (current MELD-Na 28). Low salt diet as tolerated. Will calculate Lille's score to determine need to continue prednisone or will trend total bilirubin. Discussed with Dr. Garcia.
[2016-09-13] MEDS: Multiple Vitamins Tab PO SCH (10:54)
[2016-09-13] MEDS: PrednisoLONE 6 MG/2 ML SYR PO SCH (10:55)
[2016-09-13] MEDS: Pantoprazole 40 mg EC Tab PO SCH (10:55)
--- NOTE | 2016-09-13 12:15 | CP.PCM.PN ---
<BrandynAna H - Last Filed: 09/13/16 12:11> Subjective - Date & Time of Evaluation Date of Evaluation: 09/13/16 Time of Evaluation: 08:35 - Subjective Subjective: PGY2 Medicine Note - Dr. Garcia's service: Patient seen and examined at bedside this AM. Patient says she feels good and wants to go to the store. Patient is upset that her roommate got to go to the store and she did not. Patient knows where she is, the year, the month and who the president is. Patient denies fever, chills, chest pain, weakness, SOB, abdominal pain, dysuria. Objective - Vital Signs/Intake and Output Vital Signs (last 24 hours): Temp Pulse Resp BP Pulse Ox 99.1 F 97 H 20 123/77 100 09/13/16 07:44 09/13/16 07:44 09/13/16 07:44 09/13/16 07:44 09/13/16 07:44 Intake and Output: 09/13/16 09/13/16 06:59 18:59 Intake Total 800 Output Total 400 Balance 400 - Medications Medications: Current Medications Ciprofloxacin (Cipro) 500 mg PO BID [facility] Last Admin: 09/13/16 10:55 Dose: 500 mg Folic Acid (Folic Acid) 1 mg PO DAILY [facility] Last Admin: 09/13/16 10:55 Dose: 1 mg Insulin Aspart (Novolog) 0 unit SC ACHS [facility] PRN Reason: Protocol Last Admin: 09/13/16 08:30 Dose: 3 unit Lactulose (Enulose) 30 gm PO QID [facility] Last Admin: 09/13/16 10:54 Dose: 30 gm Multivitamins (Hexavitamin) 1 tab PO DAILY [facility] Last Admin: 09/13/16 10:54 Dose: 1 tab Ondansetron HCl (Zofran Inj) 4 mg IVP Q8H PRN PRN Reason: Nausea/Vomiting Pantoprazole Sodium (Protonix Ec Tab) 40 mg PO DAILY [facility] Last Admin: 09/13/16 10:55 Dose: 40 mg Prednisolone (Prednisolone) 40 mg PO DAILY [facility] Last Admin: 09/13/16 10:55 Dose: 40 mg Pyridoxine HCl (Vitamin B6) 25 mg PO DAILY [facility] Last Admin: 09/13/16 10:54 Dose: 25 mg Rifaximin (Xifaxan) 550 mg PO BID [facility] Last Admin: 09/13/16 10:54 Dose: 550 mg Thiamine HCl (Vitamin B1 Tab) 50 mg PO DAILY [facility] Last Admin: 09/13/16 10:54 Dose: 50 mg - Labs Labs: 09/13/16 06:50 09/13/16 06:50 PT 28.5 SECONDS (9.7-12.2) H 09/13/16 06:50 INR 2.5 09/13/16 06:50 APTT 48 SECONDS (21-34) H 09/13/16 06:50 - Constitutional Appears: Non-toxic, No Acute Distress - Head Exam Head Exam: NORMAL INSPECTION - Eye Exam Eye Exam: EOMI, Scleral icterus - ENT Exam ENT Exam: Mucous Membranes Moist - Respiratory Exam Respiratory Exam: Clear to Ausculation Bilateral, NORMAL BREATHING PATTERN. absent: Rales, Rhonchi, Wheezes - Cardiovascular Exam Cardiovascular Exam: REGULAR RHYTHM, +S1, +S2. absent: Gallop, Rubs, Murmur - GI/Abdominal Exam GI & Abdominal Exam: Soft, Normal Bowel Sounds. absent: Tenderness - Extremities Exam Extremities Exam: absent: Pedal Edema - Neurological Exam Neurological Exam: Alert, Awake, Oriented x3 - Psychiatric Exam Psychiatric exam: Normal Affect, Normal Mood - Skin Skin Exam: Normal Color Additional comments: jaundiced Assessment and Plan - Assessment and Plan (Free Text) Assessment: 1. AMS Likely secondary to hepatic encephalopathy Improved Ammonia: 57 on admission. Increased to 100 on 09/09 but now 45 on 09/13/16 F/U ammonia level today CT head w/o contrast: generalized atrophy. Nonspecific white matter changes. Right frontal encephalomalacia re-identified. The mastoid air cells are underpneumatized Urine Tox: negative Alc quant: < 10 Lactulose 30gm po q6h until patient has a BM 3 times per day as per GI Patient had 2 BMs today GI Consult Dr. Agosto- help appreciated 2. Alcoholic Cirrhosis GGTP 82 TBili 25.4 AST 111 ALT 67 Alk Phosphatase 124 IgG 2010.5H, IgA 331.7 normal, IgM 348.7H, KEN neg, Anti-mitochondrial Ab neg, Smooth muscle Ab 1:20H, liver/kid microsomes Ab <=20.0 Abdominal u/s- echogenic liver may be seen in setting of hepatic parenchymal disease or fatty infiltration. mildly nodular hepatic contour. mild intrahepatic biliary ductal dilatation. gallbladder wall thickening/ pericholecystic edema. gallbladder sludge. tiny proabably gallbladder polyp measuring approximately 2mm. Negative sonographic Bruner's sign as assessed by the product sales engineer. Splenomegaly. CT chest, abdomen, pelvis w/o contrast: Advanced cirrhosis with findings suggestive of portal hypertension; Splenomegaly and multiple collateral vessels seein related to portal HTN; splenomegaly; Refer to complete report Tumor markers: AFP, CA 19-9, CEA, CA 125 ( all elevated) PT/INR 29/2.5 Monitor Prednisolone 40 mg PO daily started 09/11/16 Xifaxan 550 mg PO BID/ Lactulose- Titrate to 3 BMs a day Paracentesis cancelled- Patient did not have much fluid to attempt tap. Will benefit from triple phase CT of liver to rule out hepatocellular carcinoma F/U morning labs, coags, bilirubin 3. UTI VRE+ Sensitive to ciprofloxacin Ciprofloxacin 500mg PO BID started 09/13/16 3. Anemia of chronic disease Monitor H&H Hgb 8.7 Patient has history of bleeding ulcers per GI Endoscopy for Wednesday09/14/16 NPO past midnight 4. Hx of Alcohol abuse Folic acid 1mg po daily Multivitamin 1 tab po daily Vitamin B6 25mg po daily Thiamine 50mg po daily Zofran 4mg IVP Q8 PRN nausea/vomiting 5. Hx of Hepatitis C Hep B negative HCV positive Never treated GI on board 6. Hx of DM Accucheck ACHS low dose RISS HgbA1c 7. Hx of HTN Hold home medications 8. Acute Kidney Injury vs Hepatorenal Syndrome BUN/Cr 14/0.7 NS @ 50cc/hr Albumin: 2.7 Albumin 12.5gm @ 25cc/hr Q4 x 6 doses furine sodium 68 random creatitine 97.7 urine osmolality 463 9. Prophylactic Measures VTE ppx c/i SCDs Protonix 40mg po daily Strict Is and Os GI/Hepatic diet- protein 60gm/ Low salt diet Water Engineer referral for malnourishment <James Garcia - Last Filed: 09/13/16 12:23> Objective - Vital Signs/Intake and Output Vital Signs (last 24 hours): Temp Pulse Resp BP Pulse Ox 99.1 F 97 H 20 123/77 100 09/13/16 07:44 09/13/16 07:44 09/13/16 07:44 09/13/16 07:44 09/13/16 07:44 Intake and Output: 09/13/16 09/13/16 06:59 18:59 Intake Total 800 Output Total 400 Balance 400 - Medications Medications: Current Medications Ciprofloxacin (Cipro) 500 mg PO BID [facility] Last Admin: 09/13/16 10:55 Dose: 500 mg Folic Acid (Folic Acid) 1 mg PO DAILY [facility] Last Admin: 09/13/16 10:55 Dose: 1 mg Insulin Aspart (Novolog) 0 unit SC ACHS [facility] PRN Reason: Protocol Last Admin: 09/13/16 08:30 Dose: 3 unit Lactulose (Enulose) 30 gm PO QID [facility] Last Admin: 09/13/16 10:54 Dose: 30 gm Multivitamins (Hexavitamin) 1 tab PO DAILY [facility] Last Admin: 09/13/16 10:54 Dose: 1 tab Ondansetron HCl (Zofran Inj) 4 mg IVP Q8H PRN PRN Reason: Nausea/Vomiting Pantoprazole Sodium (Protonix Ec Tab) 40 mg PO DAILY [facility] Last Admin: 09/13/16 10:55 Dose: 40 mg Prednisolone (Prednisolone) 40 mg PO DAILY [facility] Last Admin: 09/13/16 10:55 Dose: 40 mg Pyridoxine HCl (Vitamin B6) 25 mg PO DAILY [facility] Last Admin: 09/13/16 10:54 Dose: 25 mg Rifaximin (Xifaxan) 550 mg PO BID [facility] Last Admin: 09/13/16 10:54 Dose: 550 mg Thiamine HCl (Vitamin B1 Tab) 50 mg PO DAILY [facility] Last Admin: 09/13/16 10:54 Dose: 50 mg - Labs Labs: 09/13/16 06:50 09/13/16 06:50 PT 28.5 SECONDS (9.7-12.2) H 09/13/16 06:50 INR 2.5 09/13/16 06:50 APTT 48 SECONDS (21-34) H 09/13/16 06:50 Attending/Attestation - Attestation I have personally seen and examined this patient.: Yes I have fully participated in the care of the patient.: Yes I have reviewed all pertinent clinical information, including history, physical exam and plan: Yes Notes (Text): 09/13/16 12:21 Medical Attending: Patient was seen and examined by me. Agree with the above note by the resident. Overnight she wanted to go AMA however was conviced by night team to stay. Pending endoscopy this Wednesday, the concern is she may GI bleeding since in the past has been found to have ulcers/gastritis. Her mental status is very good today, she was answering questions appropriately James Garcia
[2016-09-14 07:47] LABS: CHLORIDE 106 mmol/L (98-107)
[2016-09-14 07:48] LABS: POTASSIUM 4.6 mmol/L (3.6-5.2); SODIUM 136 mmol/L (132-148)
[2016-09-14 07:50] LABS: ALB/GLOB RATIO 0.8 (1.0-2.1); ALKALINE PHOSPHATASE 96 U/L (38-126); ALT/SGPT 65 U/L (9-52); AST/SGOT 78 U/L (14-36); BILIRUBIN,TOTAL 16.2 mg/dL (0.2-1.3); BLOOD UREA NITROGEN 24 mg/dL (7-17); CARBON DIOXIDE 18 mmol/L (22-30); GFR AFRICAN-AMERICAN > 60; TOTAL PROTEIN 6.7 g/dL (6.3-8.3)
[2016-09-14 07:51] LABS: BASO % 0.1 % (0.0-2.0); CALCIUM 9.7 mg/dl (8.6-10.4); EOS % 0.1 % (0.0-4.0); GLUCOSE,RANDOM 94 mg/dL (65-105); HEMATOCRIT 26.4 % (34.0-47.0); LYMPH % 8.8 % (20.0-40.0); MEAN CELL VOLUME 104.5 fL (81.0-99.0); MEAN CORPUSCULAR HEMOGLOBIN 36.2 pg (27.0-31.0); MEAN CORPUSCULAR HGB CONC 34.6 g/dL (33.0-37.0); MEAN PLATELET VOLUME 8.3 fL (7.2-11.7); MONO # 1.4 K/uL (0.0-0.8); MONO % 12.5 % (0.0-10.0); PLATELET COUNT 69 K/uL (130-400); RED CELL DISTRIBUTION WIDTH 27.7 % (11.5-14.5); WHITE BLOOD COUNT 11.4 K/uL (4.8-10.8)
[2016-09-14] MEDS: (Novolog) Insulin Aspart, Recombinant 100 u/ml 10 ml vial SC SCH ×4 (08:00→22:05)
[2016-09-14 08:18] LABS: INR 2.2
[2016-09-14] MEDS ORDERED: Phytonadione 10 mg/ml Inj (Adult) SC ONE (09:15)
[2016-09-14 09:28] LABS: NEUTROPHIL 85 % (50-75); TOTAL CELLS COUNTED 100
[2016-09-14] MEDS: Pantoprazole 40 mg EC Tab PO SCH (10:24)
[2016-09-14] MEDS: Multiple Vitamins Tab PO SCH (10:25)
[2016-09-14] MEDS: PrednisoLONE 6 MG/2 ML SYR PO SCH (10:26)
--- NOTE | 2016-09-14 15:26 | PCM.SURG1 ---
Surgeon's Initial Post Op Note - Surgeon's Notes Surgeon: Dino Javier MD Channel Manager: NONE Type of Anesthesia: Local Pre-Operative Diagnosis: Poor venous access Operative Findings: Patent right basilic vein. Post-Operative Diagnosis: Poor venous access Operation Performed: Right basilic vein single lumen picc placement, 32 cm. Tip in SVC. Specimen/Specimens Removed: None Estimated Blood Loss: EBL {In ML}: 3 Blood Products Given: N/A Drains Used: No Drains Post-Op Condition: Fair Date of Surgery/Procedure: 09/14/16 Time of Surgery/Procedure: 15:20
--- NOTE | 2016-09-14 17:19 | CP.PCM.PN ---
<Raissa Rajan - Last Filed: 09/14/16 17:26> Subjective - Date & Time of Evaluation Date of Evaluation: 09/14/16 Time of Evaluation: 17:16 - Subjective Subjective: Gastroenterology Fellow/PGY4 Progress Note Patient oriented to person and place. Notes worsened abdominal distension. Notes daily bowel movement. Tolerating diet. A 12-point review of systems negative except for as above. Objective - Vital Signs/Intake and Output Vital Signs (last 24 hours): Temp Pulse Resp BP Pulse Ox 97.4 F L 68 20 132/84 97 09/14/16 15:06 09/14/16 15:06 09/14/16 15:06 09/14/16 15:06 09/14/16 15:06 Intake and Output: 09/14/16 09/14/16 06:59 18:59 Intake Total 200 0 Output Total 400 Balance -200 0 - Medications Medications: Current Medications Ciprofloxacin (Cipro) 500 mg PO BID [facility] Last Admin: 09/14/16 17:05 Dose: 500 mg Folic Acid (Folic Acid) 1 mg PO DAILY [facility] Last Admin: 09/14/16 10:25 Dose: 1 mg Insulin Aspart (Novolog) 0 unit SC ACHS [facility] PRN Reason: Protocol Last Admin: 09/14/16 17:06 Dose: 2 unit Lactulose (Enulose) 30 gm PO QID [facility] Last Admin: 09/14/16 17:05 Dose: 30 gm Multivitamins (Hexavitamin) 1 tab PO DAILY [facility] Last Admin: 09/14/16 10:25 Dose: 1 tab Ondansetron HCl (Zofran Inj) 4 mg IVP Q8H PRN PRN Reason: Nausea/Vomiting Pantoprazole Sodium (Protonix Ec Tab) 40 mg PO DAILY [facility] Last Admin: 09/14/16 10:24 Dose: 40 mg Prednisolone (Prednisolone) 40 mg PO DAILY [facility] Last Admin: 09/14/16 10:26 Dose: 40 mg Pyridoxine HCl (Vitamin B6) 25 mg PO DAILY [facility] Last Admin: 09/14/16 10:26 Dose: 25 mg Rifaximin (Xifaxan) 550 mg PO BID [facility] Last Admin: 09/14/16 17:05 Dose: 550 mg Thiamine HCl (Vitamin B1 Tab) 50 mg PO DAILY [facility] Last Admin: 09/14/16 10:26 Dose: 50 mg - Labs Labs: 09/14/16 07:25 09/14/16 07:25 PT 24.9 SECONDS (9.7-12.2) H 09/14/16 07:25 INR 2.2 09/14/16 07:25 APTT 44 SECONDS (21-34) H 09/14/16 07:25 - Constitutional Appears: Non-toxic, No Acute Distress - Head Exam Head Exam: ATRAUMATIC, NORMOCEPHALIC - Eye Exam Eye Exam: EOMI, PERRL Pupil Exam: PERRL. absent: Miosis, Mydriatic - ENT Exam ENT Exam: Mucous Membranes Moist, Normal Oropharynx - Neck Exam Neck Exam: Full ROM, Normal Inspection - Respiratory Exam Respiratory Exam: Clear to Ausculation Bilateral. absent: Rales, Rhonchi, Wheezes - GI/Abdominal Exam GI & Abdominal Exam: Distended, Soft, Normal Bowel Sounds, Organomegaly. absent : Firm, Guarding, Rigid, Tenderness, Rebound - Extremities Exam Extremities Exam: Full ROM. absent: Pedal Edema - Neurological Exam Neurological Exam: Alert, Awake - Psychiatric Exam Psychiatric exam: Normal Affect, Normal Mood - Skin Skin Exam: Dry, Intact, Normal Color, Warm Assessment and Plan - Assessment and Plan (Free Text) Assessment: 51 year old female with history of Hypertension, Diabetes, Depression, Anxiety, recurrent decompensated cirrhosis (2/2 GI bleed, ascites, and hepatic encephalopathy) on Lasix/spironolactone 40/100, Hep C genotype 4a/4c/4d viral load 4915 (12/2015), esophageal varices 02/2015 on propranolol resolved on EGD presenting with confusion. Active treatment of decompensated cirrhosis secondary to improving hepatic encephalopathy, renal insufficiency, and alcoholic hepatitis in setting of continued alcohol abuse. Prior EGD 02/2016 with one 5mm esophageal ulcer and one linear esophageal ulcer, and portal hypertensive gastropathy. Prior EGD 02/2015 with moderate esophageal varices and placement of 3 bands for ligation. Plan: >MELD 40 on admission, today 26 >DF 75.8- 115 since admission, today 86.1 >Prednisolone 40mg daily (day 4) >restart Lasix/spironolactone 20:50 >titrate to baseline Lasix 40: spironolactone 100 as creatinine improves >daily LFTs, INR >low salt diet as tolerated >NPO after midnight, EGD Wednesday for variceal screening >recurrent decompensated alcoholic/HepC cirrhosis, alcoholic hepatitis >further recommendations based on clinical course <Yonathan George MD - Last Filed: 09/14/16 21:10> Objective - Vital Signs/Intake and Output Vital Signs (last 24 hours): Temp Pulse Resp BP Pulse Ox 98 F 83 20 130/75 99 09/14/16 19:03 09/14/16 19:03 09/14/16 19:03 09/14/16 20:42 09/14/16 19:03 Intake and Output: 09/14/16 09/15/16 18:59 06:59 Intake Total 0 Balance 0 - Medications Medications: Current Medications Ciprofloxacin (Cipro) 500 mg PO BID [facility] Last Admin: 09/14/16 17:05 Dose: 500 mg Folic Acid (Folic Acid) 1 mg PO DAILY [facility] Last Admin: 09/14/16 10:25 Dose: 1 mg Furosemide (Lasix) 20 mg PO DAILY [facility] Last Admin: 09/14/16 20:42 Dose: 20 mg Insulin Aspart (Novolog) 0 unit SC ACHS [facility] PRN Reason: Protocol Last Admin: 09/14/16 17:06 Dose: 2 unit Lactulose (Enulose) 30 gm PO QID [facility] Last Admin: 09/14/16 17:05 Dose: 30 gm Multivitamins (Hexavitamin) 1 tab PO DAILY [facility] Last Admin: 09/14/16 10:25 Dose: 1 tab Ondansetron HCl (Zofran Inj) 4 mg IVP Q8H PRN PRN Reason: Nausea/Vomiting Pantoprazole Sodium (Protonix Ec Tab) 40 mg PO DAILY [facility] Last Admin: 09/14/16 10:24 Dose: 40 mg Prednisolone (Prednisolone) 40 mg PO DAILY [facility] Last Admin: 09/14/16 10:26 Dose: 40 mg Pyridoxine HCl (Vitamin B6) 25 mg PO DAILY [facility] Last Admin: 09/14/16 10:26 Dose: 25 mg Rifaximin (Xifaxan) 550 mg PO BID [facility] Last Admin: 09/14/16 17:05 Dose: 550 mg Spironolactone (Aldactone) 50 mg PO DAILY [facility] Last Admin: 09/14/16 20:42 Dose: 50 mg Thiamine HCl (Vitamin B1 Tab) 50 mg PO DAILY [facility] Last Admin: 09/14/16 10:26 Dose: 50 mg - Labs Labs: 09/14/16 07:25 09/14/16 07:25 PT 24.9 SECONDS (9.7-12.2) H 09/14/16 07:25 INR 2.2 09/14/16 07:25 APTT 44 SECONDS (21-34) H 09/14/16 07:25 Attending/Attestation - Attestation I have personally seen and examined this patient.: Yes I have fully participated in the care of the patient.: Yes I have reviewed all pertinent clinical information, including history, physical exam and plan: Yes Notes (Text): 09/14/16 21:09 Patient seen and examined with GI fellow. This is a 51 year old female with h/ o DM, HTN, asthma, seizure disorder, depression/anxiety, ETOH/hep C (GT4/TN) cirrhosis complicated by history of varices/ascites who is admitted with confusion/encephalopathy and worsening jaundice/hyperbilirubinemia (MELD 40 on admission). She continues to drink ETOH. Today seen at bedside alert and conversant with her partner. She denies alcohol drinking till 3 weeks ago. Her Cr is improving. She is having more than 3 BM/day. She denies any new complaints this morning. Hb rosalee at 6.7 yesterday without overt GI blood loss , s/p PRBC transfusion (now 10). She has been denied transfer to [facility] due to improvement in clinical status. Her outpatient follow up has been non compliant. Her last EGd in Feb 2016 had shown distal esophagus ulcer. She has not had repeat EGD. Will schedule for inpatient EGD tomorrow. Would continue supportive care, titrate lactulose to 2-3 BM/day, continue rifaximin. Resolved HE. Monitor for bleeding. Follow up cultures (neg to date). No recurrent fever. No tappable ascites. Obtain daily MELD labs (current MELD-Na 28). Low salt diet as tolerated. Will calculate Lille's score to determine need to continue prednisone or will trend total bilirubin.
--- NOTE | 2016-09-14 17:32 | CP.PCM.PN ---
<Romario Montes - Last Filed: 09/14/16 17:29> Subjective - Date & Time of Evaluation Date of Evaluation: 09/14/16 Time of Evaluation: 08:30 - Subjective Subjective: Dr. Montes PGY 1 Hospitalist Note Patient seen and evaluated at bedside. She states she is hungry and tired of being stuck with needles. She states her abdominal pain and tenderness has improved. She is alert and oriented to person, place, location, and situation. She is awaiting PICC line placement and EGD. Per nursing, lost IV access on patient and FFP ordered by GI prior to getting EGD. No other adverse events noted. Objective - Vital Signs/Intake and Output Vital Signs (last 24 hours): Temp Pulse Resp BP Pulse Ox 97.4 F L 68 20 132/84 97 09/14/16 15:06 09/14/16 15:06 09/14/16 15:06 09/14/16 15:06 09/14/16 15:06 Intake and Output: 09/14/16 09/14/16 06:59 18:59 Intake Total 200 0 Output Total 400 Balance -200 0 - Medications Medications: Current Medications Ciprofloxacin (Cipro) 500 mg PO BID [facility] Last Admin: 09/14/16 17:05 Dose: 500 mg Folic Acid (Folic Acid) 1 mg PO DAILY [facility] Last Admin: 09/14/16 10:25 Dose: 1 mg Furosemide (Lasix) 20 mg PO DAILY [facility] Insulin Aspart (Novolog) 0 unit SC ACHS [facility] PRN Reason: Protocol Last Admin: 09/14/16 17:06 Dose: 2 unit Lactulose (Enulose) 30 gm PO QID [facility] Last Admin: 09/14/16 17:05 Dose: 30 gm Multivitamins (Hexavitamin) 1 tab PO DAILY [facility] Last Admin: 09/14/16 10:25 Dose: 1 tab Ondansetron HCl (Zofran Inj) 4 mg IVP Q8H PRN PRN Reason: Nausea/Vomiting Pantoprazole Sodium (Protonix Ec Tab) 40 mg PO DAILY [facility] Last Admin: 09/14/16 10:24 Dose: 40 mg Prednisolone (Prednisolone) 40 mg PO DAILY [facility] Last Admin: 09/14/16 10:26 Dose: 40 mg Pyridoxine HCl (Vitamin B6) 25 mg PO DAILY [facility] Last Admin: 09/14/16 10:26 Dose: 25 mg Rifaximin (Xifaxan) 550 mg PO BID [facility] Last Admin: 09/14/16 17:05 Dose: 550 mg Spironolactone (Aldactone) 50 mg PO DAILY [facility] Thiamine HCl (Vitamin B1 Tab) 50 mg PO DAILY [facility] Last Admin: 09/14/16 10:26 Dose: 50 mg - Labs Labs: 09/14/16 07:25 09/14/16 07:25 PT 24.9 SECONDS (9.7-12.2) H 09/14/16 07:25 INR 2.2 09/14/16 07:25 APTT 44 SECONDS (21-34) H 09/14/16 07:25 - Constitutional Appears: Non-toxic, No Acute Distress - Head Exam Head Exam: ATRAUMATIC, NORMOCEPHALIC - Eye Exam Eye Exam: EOMI, PERRL, Scleral icterus Pupil Exam: NORMAL ACCOMODATION, PERRL - ENT Exam ENT Exam: Mucous Membranes Moist, Normal Oropharynx - Neck Exam Neck Exam: Normal Inspection - Respiratory Exam Respiratory Exam: Clear to Ausculation Bilateral, NORMAL BREATHING PATTERN. absent: Rales, Rhonchi, Wheezes - Cardiovascular Exam Cardiovascular Exam: REGULAR RHYTHM, +S1, +S2. absent: Gallop, Rubs, Murmur - GI/Abdominal Exam GI & Abdominal Exam: Soft (LUQ), Tenderness, Normal Bowel Sounds - Extremities Exam Extremities Exam: Tenderness (at IV site). absent: Normal Inspection (bruising from multiple IV insertion attempts), Pedal Edema - Back Exam Back Exam: NORMAL INSPECTION. absent: rash noted, tenderness - Neurological Exam Neurological Exam: Alert, Awake, CN II-XII Intact, Oriented x3 - Skin Skin Exam: Dry, Intact, Warm. absent: Normal Color (mild jaundice) Assessment and Plan - Assessment and Plan (Free Text) Plan: 1. AMS Likely secondary to hepatic encephalopathy Improved Ammonia: 57 on admission. Increased to 100 on 09/09 but now 51 on 09/14/16 F/U ammonia level today CT head w/o contrast: generalized atrophy. Nonspecific white matter changes. Right frontal encephalomalacia re-identified. The mastoid air cells are underpneumatized Urine Tox: negative Alc quant: < 10 Lactulose 30gm po QID until patient has a BM 3 times per day as per GI GI Consult Dr. Agosto- help appreciated 2. Alcoholic Cirrhosis GGTP 82 TBili 16.2 AST 78 ALT 65 Alk Phosphatase 96 IgG 2010.5H, IgA 331.7 normal, IgM 348.7H, KEN neg, Anti-mitochondrial Ab neg, Smooth muscle Ab 1:20H, liver/kid microsomes Ab <=20.0 Abdominal u/s- echogenic liver may be seen in setting of hepatic parenchymal disease or fatty infiltration. mildly nodular hepatic contour. mild intrahepatic biliary ductal dilatation. gallbladder wall thickening/ pericholecystic edema. gallbladder sludge. tiny proabably gallbladder polyp measuring approximately 2mm. Negative sonographic Bruner's sign as assessed by the mainframe consultant. Splenomegaly. CT chest, abdomen, pelvis w/o contrast: Advanced cirrhosis with findings suggestive of portal hypertension; Splenomegaly and multiple collateral vessels seein related to portal HTN; splenomegaly; Refer to complete report Tumor markers: AFP, CA 19-9, CEA, CA 125 ( all elevated) PT/INR 29/2.5 Monitor Prednisolone 40 mg PO daily started 09/11/16 Xifaxan 550 mg PO BID/ Lactulose- Titrate to 3 BMs a day Paracentesis cancelled- Patient did not have much fluid to attempt tap. Will benefit from triple phase CT of liver to rule out hepatocellular carcinoma Awaiting PICC line and FFP- consent given F/U morning labs, coags, bilirubin 3. UTI VRE+ Sensitive to ciprofloxacin Ciprofloxacin 500mg PO BID started 09/13/16 3. Anemia of chronic disease Monitor H&H Hgb 9.1 Patient has history of bleeding ulcers per GI Endoscopy later today after midnight NPO past midnight 4. Hx of Alcohol abuse Folic acid 1mg po daily Multivitamin 1 tab po daily Vitamin B6 25mg po daily Thiamine 50mg po daily Zofran 4mg IVP Q8 PRN nausea/vomiting 5. Hx of Hepatitis C Hep B negative HCV positive Never treated GI on board 6. Hx of DM Accucheck ACHS low dose RISS HgbA1c 7. Hx of HTN Hold home medications 8. Acute Kidney Injury vs Hepatorenal Syndrome BUN/Cr 24/0.8 NS @ 50cc/hr Albumin: 2.7 Albumin 12.5gm @ 25cc/hr Q4 x 6 doses furine sodium 68 random creatitine 97.7 urine osmolality 463 9. Prophylactic Measures VTE ppx c/i SCDs Protonix 40mg po daily Strict Is and Os GI/Hepatic diet- protein 60gm/ Low salt diet [employer] referral for malnourishment Assesment and plan discussed with attending physician. <Avril Pablo V - Last Filed: 09/14/16 22:27> Objective - Vital Signs/Intake and Output Vital Signs (last 24 hours): Temp Pulse Resp BP Pulse Ox 98 F 83 20 130/75 99 09/14/16 19:03 09/14/16 19:03 09/14/16 19:03 09/14/16 20:42 09/14/16 19:03 Intake and Output: 09/14/16 09/15/16 18:59 06:59 Intake Total 0 Balance 0 - Medications Medications: Current Medications Ciprofloxacin (Cipro) 500 mg PO BID [facility] Last Admin: 09/14/16 17:05 Dose: 500 mg Folic Acid (Folic Acid) 1 mg PO DAILY [facility] Last Admin: 09/14/16 10:25 Dose: 1 mg Furosemide (Lasix) 20 mg PO DAILY [facility] Last Admin: 09/14/16 20:42 Dose: 20 mg Insulin Aspart (Novolog) 0 unit SC [facility] PRN Reason: Protocol Last Admin: 09/14/16 22:05 Dose: Not Given Lactulose (Enulose) 30 gm PO QID [facility] Last Admin: 09/14/16 17:05 Dose: 30 gm Multivitamins (Hexavitamin) 1 tab PO DAILY [facility] Last Admin: 09/14/16 10:25 Dose: 1 tab Ondansetron HCl (Zofran Inj) 4 mg IVP Q8H PRN PRN Reason: Nausea/Vomiting Pantoprazole Sodium (Protonix Ec Tab) 40 mg PO DAILY [facility] Last Admin: 09/14/16 10:24 Dose: 40 mg Prednisolone (Prednisolone) 40 mg PO DAILY [facility] Last Admin: 09/14/16 10:26 Dose: 40 mg Pyridoxine HCl (Vitamin B6) 25 mg PO DAILY [facility] Last Admin: 09/14/16 10:26 Dose: 25 mg Rifaximin (Xifaxan) 550 mg PO BID [facility] Last Admin: 09/14/16 17:05 Dose: 550 mg Spironolactone (Aldactone) 50 mg PO DAILY [facility] Last Admin: 09/14/16 20:42 Dose: 50 mg Thiamine HCl (Vitamin B1 Tab) 50 mg PO DAILY [facility] Last Admin: 09/14/16 10:26 Dose: 50 mg - Labs Labs: 09/14/16 07:25 09/14/16 07:25 PT 24.9 SECONDS (9.7-12.2) H 09/14/16 07:25 INR 2.2 09/14/16 07:25 APTT 44 SECONDS (21-34) H 09/14/16 07:25 Attending/Attestation - Attestation I have personally seen and examined this patient.: Yes I have fully participated in the care of the patient.: Yes I have reviewed all pertinent clinical information, including history, physical exam and plan: Yes Notes (Text): Patient seen, examined, and case discussed with day-time resident. Patient seen at 11:45AM this morning on rounds, after completing morning physical therapy. Patient is awake, alert, oriented X3, no acute distress, sclerus iterus. Patient lost IV access per nursing. Patient ultimately received PICC line access per interventional radiologist later this afternoon. Patient received Vitamin 10mg subq this morning and ordered for FFP per GI. Patient received first unit of FFP this afternoon. Per GI, patient denies transfer given improvement in clinical status, and for inpatient egd tomorrow, npo after midnight. Patient ordered for INR tomorrow. total bilirubin is downtrending. Liver function tests are downtrending. INR > 2.0 no reported bleeding events. 1. Hepatic encephalopathy * due to alcohol history, alcoholic liver cirrhosis * Patient's ammonia elevated on admission * Patient is awake, alert, oriented, no acute distress today. * CT head w/o contrast: generalized atrophy. Nonspecific white matter changes. Right frontal encephalomalacia re-identified. The mastoid air cells are underpneumatized * Urine Tox: negative * Alcohol quant: < 10 * GI Consult Dr. Agosto- help appreciated * monitor clinical status 2. Alcoholic Cirrhosis * IgG 2010.5H, IgA 331.7 normal, IgM 348.7H, KEN neg, Anti-mitochondrial Ab neg , Smooth muscle Ab 1:20H, liver/kid microsomes Ab <=20.0 * Abdominal u/s- echogenic liver may be seen in setting of hepatic parenchymal disease or fatty infiltration. mildly nodular hepatic contour. mild intrahepatic biliary ductal dilatation. gallbladder wall thickening/ pericholecystic edema. gallbladder sludge. tiny proabably gallbladder polyp measuring approximately 2mm. Negative sonographic Bruner's sign as assessed by the mainframe consultant. Splenomegaly. * CT chest, abdomen, pelvis w/o contrast: Advanced cirrhosis with findings suggestive of portal hypertension; Splenomegaly and multiple collateral vessels seein related to portal HTN; splenomegaly; Refer to complete report * Tumor markers: AFP, CA 19-9, CEA, CA 125 ( all elevated) * Inr: 2.2 today; received Vitamin K and ordered for 2 units of FFP * Prednisolone 40 mg PO daily started 09/11/16 * Xifaxan 550 mg PO BID; Lactulose 30gm QID Titrate to 3 BMs a day * Paracentesis cancelled- Patient did not have much fluid to attempt tap during hospitalization * Aldactone 50mg PO daily * Lasix 20mg PO daily 3. UTI * VRE+ on 09/11/16 urine culture * Sensitive to ciprofloxacin * Ciprofloxacin 500mg PO BID started 09/13/16 3. Anemia of chronic disease * Monitor H&H * Hgb 9.1 * Patient has history of bleeding ulcers per GI * Endoscopy for Wednesday09/15/16 * NPO past midnight 4. Hx of Alcohol abuse * Folic acid 1mg po daily * Multivitamin 1 tab po daily * Thiamine 50mg po daily * Zofran 4mg IVP Q8 PRN nausea/vomiting 5. Hx of Hepatitis C * Hep B negative * HCV positive * Never treated * GI on board 6. Hx of DM * Accucheck ACHS * low dose NISS * HgbA1c: 4.2 * controlled 7. Hx of HTN * Lasix 20mg PO daily 8. Acute Kidney Injury * BUN/Cr 14/0.7 * NS @ 50cc/hr * monitor BUN/Cr 9. Prophylactic Measures * contraindications to VTE secondary to thrombocytopenia * S/p vitamin K and FFP today for endoscopy tomorrow * patient is NPO after midnight * Protonix 40mg PO daily for GI ppx * PICC line in place today
[2016-09-15 07:31] LABS: BASO % 0.1 % (0.0-2.0); EOS % 0.1 % (0.0-4.0); HEMATOCRIT 24.4 % (34.0-47.0); LYMPH # 0.7 K/uL (1.0-4.3); MEAN CELL VOLUME 105.7 fL (81.0-99.0); MEAN CORPUSCULAR HEMOGLOBIN 36.3 pg (27.0-31.0); MEAN CORPUSCULAR HGB CONC 34.3 g/dL (33.0-37.0); MEAN PLATELET VOLUME 8.1 fL (7.2-11.7); MONO % 12.6 % (0.0-10.0); PLATELET COUNT 71 K/uL (130-400); RED CELL DISTRIBUTION WIDTH 28.7 % (11.5-14.5); WHITE BLOOD COUNT 8.4 K/uL (4.8-10.8)
[2016-09-15] MEDS: (Novolog) Insulin Aspart, Recombinant 100 u/ml 10 ml vial SC SCH ×2 (07:41→12:51)
--- NOTE | 2016-09-15 07:42 | CP.PCM.PN ---
Objective - Vital Signs/Intake and Output Vital Signs (last 24 hours): Temp Pulse Resp BP Pulse Ox 98.4 F 93 H 20 119/71 99 09/15/16 05:49 09/15/16 05:49 09/15/16 05:49 09/15/16 05:49 09/15/16 00:00 Intake and Output: 09/15/16 09/15/16 06:59 18:59 Intake Total 1034 Balance 1034 - Medications Medications: Current Medications Ciprofloxacin (Cipro) 500 mg PO BID [facility] Last Admin: 09/14/16 17:05 Dose: 500 mg Folic Acid (Folic Acid) 1 mg PO DAILY [facility] Last Admin: 09/14/16 10:25 Dose: 1 mg Furosemide (Lasix) 20 mg PO DAILY [facility] Last Admin: 09/14/16 20:42 Dose: 20 mg Insulin Aspart (Novolog) 0 unit SC ACHS [facility] PRN Reason: Protocol Last Admin: 09/15/16 07:41 Dose: Not Given Lactulose (Enulose) 30 gm PO QID [facility] Last Admin: 09/14/16 23:00 Dose: 30 gm Multivitamins (Hexavitamin) 1 tab PO DAILY [facility] Last Admin: 09/14/16 10:25 Dose: 1 tab Ondansetron HCl (Zofran Inj) 4 mg IVP Q8H PRN PRN Reason: Nausea/Vomiting Pantoprazole Sodium (Protonix Ec Tab) 40 mg PO DAILY [facility] Last Admin: 09/14/16 10:24 Dose: 40 mg Prednisolone (Prednisolone) 40 mg PO DAILY [facility] Last Admin: 09/14/16 10:26 Dose: 40 mg Pyridoxine HCl (Vitamin B6) 25 mg PO DAILY [facility] Last Admin: 09/14/16 10:26 Dose: 25 mg Rifaximin (Xifaxan) 550 mg PO BID [facility] Last Admin: 09/14/16 17:05 Dose: 550 mg Saccharomyces Boulardii (Florastor) 250 mg PO BID [facility] Spironolactone (Aldactone) 50 mg PO DAILY [facility] Last Admin: 09/14/16 20:42 Dose: 50 mg Thiamine HCl (Vitamin B1 Tab) 100 mg PO DAILY [facility] - Labs Labs: 09/15/16 07:18 09/14/16 07:25 PT 24.9 SECONDS (9.7-12.2) H 09/14/16 07:25 INR 2.2 09/14/16 07:25 APTT 44 SECONDS (21-34) H 09/14/16 07:25
[2016-09-15 07:51] LABS: INR 1.5
[2016-09-15 08:39] LABS: CHLORIDE 107 mmol/L (98-107); SODIUM 136 mmol/L (132-148)
[2016-09-15 08:41] LABS: BILIRUBIN,TOTAL 13.6 mg/dL (0.2-1.3); GFR AFRICAN-AMERICAN > 60
[2016-09-15 08:42] LABS: ALB/GLOB RATIO 0.9 (1.0-2.1); ALKALINE PHOSPHATASE 92 U/L (38-126); ALT/SGPT 56 U/L (9-52); AST/SGOT 58 U/L (14-36); BLOOD UREA NITROGEN 22 mg/dL (7-17); CARBON DIOXIDE 18 mmol/L (22-30); GLUCOSE,RANDOM 99 mg/dL (65-105); PHOSPHOROUS 3.5 mg/dL (2.5-4.5); TOTAL PROTEIN 6.5 g/dL (6.3-8.3)
[2016-09-15 08:43] LABS: MAGNESIUM 2.2 mg/dL (1.6-2.3)
[2016-09-15 09:37] LABS: NEUTROPHIL 81 % (50-75); TOTAL CELLS COUNTED 100
[2016-09-15] MEDS ORDERED: Propofol 10 mg/ml Inj (20 ML) ONE (10:00)
[2016-09-15] MEDS ORDERED: Saccharomyces Boulardi 250 mg Cap PO SCH (10:00)
[2016-09-15 10:10] VITALS: O2SAT 100
[2016-09-15 10:55] VITALS: TEMP 98
[2016-09-15 10:56] VITALS: PULSE 76; RESP 15
[2016-09-15] MEDS: Pantoprazole 40 mg EC Tab PO SCH (13:54)
--- NOTE | 2016-09-15 13:54 | CP.PCM.DIS ---
<Romario Montes - Last Filed: 09/15/16 19:01> Provider - Provider Date of Admission: 09/08/16 14:02 Attending physician: Avril Pablo DO Consults: Ynes Agosto Time Spent in preparation of Discharge (in minutes): 45 Hospital Course - Lab Results Lab Results: Micro Results 09/11/16 09:30 Urine,Catheterized Urine Culture - Final Vancomycin Res E.faecalis Most Recent Lab Values WBC 8.4 K/uL (4.8-10.8) 09/15/16 07:18 RBC 2.31 Mil/uL (3.80-5.20) L 09/15/16 07:18 Hgb 8.4 g/dL (11.0-16.0) L 09/15/16 07:18 Hct 24.4 % (34.0-47.0) L 09/15/16 07:18 MCV 105.7 fL (81.0-99.0) H 09/15/16 07:18 MCH 36.3 pg (27.0-31.0) H 09/15/16 07:18 MCHC 34.3 g/dL (33.0-37.0) 09/15/16 07:18 RDW 28.7 % (11.5-14.5) H 09/15/16 07:18 Plt Count 71 K/uL (130-400) L 09/15/16 07:18 MPV 8.1 fL (7.2-11.7) 09/15/16 07:18 Neut % (Auto) 78.2 % (50.0-75.0) H 09/15/16 07:18 Lymph % (Auto) 9.0 % (20.0-40.0) L 09/15/16 07:18 Boundary % (Auto) 12.6 % (0.0-10.0) H 09/15/16 07:18 Eos % (Auto) 0.1 % (0.0-4.0) 09/15/16 07:18 Baso % (Auto) 0.1 % (0.0-2.0) 09/15/16 07:18 Neut # 6.5 K/uL (1.8-7.0) 09/15/16 07:18 Lymph # 0.7 K/uL (1.0-4.3) L 09/15/16 07:18 Boundary # 1.0 K/uL (0.0-0.8) H 09/15/16 07:18 Eos # 0.0 K/uL (0.0-0.7) 09/15/16 07:18 Baso # 0.0 K/uL (0.0-0.2) 09/15/16 07:18 Neutrophils % (Manual) 81 % (50-75) H 09/15/16 07:18 Lymphocytes % (Manual) 8 % (20-40) L 09/15/16 07:18 Monocytes % (Manual) 11 % (0-10) H 09/15/16 07:18 Differential Comment 09/11/16 08:05 Toxic Granulation Present 09/13/16 06:50 Platelet Estimate Decreased (NORMAL) L 09/15/16 07:18 Large Platelets Present 09/13/16 06:50 Polychromasia Slight 09/14/16 07:25 Hypochromasia (manual) Slight 09/15/16 07:18 Poikilocytosis (manual Slight 09/15/16 07:18 Anisocytosis (manual) Slight 09/15/16 07:18 Microcytosis (manual) Slight 09/15/16 07:18 Macrocytosis (manual) Slight 09/15/16 07:18 Target Cells Slight 09/12/16 07:18 Ovalocytes Slight 09/13/16 06:50 [place] Cells Slight 09/15/16 07:18 PT 17.5 SECONDS (9.7-12.2) H D 09/15/16 07:18 INR 1.5 D 09/15/16 07:18 APTT 44 SECONDS (21-34) H 09/14/16 07:25 Sodium 136 mmol/L (132-148) 09/15/16 07:18 Potassium 4.0 mmol/L (3.6-5.2) 09/15/16 07:18 Chloride 107 mmol/L (98-107) 09/15/16 07:18 Carbon Dioxide 18 mmol/L (22-30) L 09/15/16 07:18 Anion Gap 15 (10-20) 09/15/16 07:18 BUN 22 mg/dL (7-17) H 09/15/16 07:18 Creatinine 0.9 MG/DL (0.7-1.2) 09/15/16 07:18 Est GFR ( Amer) > 60 09/15/16 07:18 Est GFR (Non-Af Amer) > 60 09/15/16 07:18 POC Glucose (mg/dL) 111 mg/dL (65-110) H 09/15/16 12:10 Random Glucose 99 mg/dL (65-105) 09/15/16 07:18 Hemoglobin A1c 4.2 % (4.2-6.5) 09/09/16 06:44 Serum Osmolality 295 mosm/kg (272-300) 09/08/16 23:06 Calcium 10.0 mg/dl (8.6-10.4) 09/15/16 07:18 Phosphorus 3.5 mg/dL (2.5-4.5) 09/15/16 07:18 Magnesium 2.2 mg/dL (1.6-2.3) 09/15/16 07:18 Total Bilirubin 13.6 mg/dL (0.2-1.3) H 09/15/16 07:18 Direct Bilirubin 20.3 mg/dL (0.0-0.4) H 09/11/16 08:05 GGT 82 U/L (8-78) H 09/09/16 06:44 AST 58 U/L (14-36) H D 09/15/16 07:18 ALT 56 U/L (9-52) H 09/15/16 07:18 Alkaline Phosphatase 92 U/L (38-126) 09/15/16 07:18 Ammonia 47 umol/L (9-33) H 09/15/16 07:18 Lactate Dehydrogenase 474 U/L (313-618) 09/08/16 14:07 Troponin I 0.0140 ng/mL (0.00-0.120) 09/08/16 14:07 Total Protein 6.5 g/dL (6.3-8.3) 09/15/16 07:18 Albumin 3.1 g/dL (3.5-5.0) L 09/15/16 07:18 Globulin 3.4 gm/dL (2.2-3.9) 09/15/16 07:18 Albumin/Globulin Ratio 0.9 (1.0-2.1) L 09/15/16 07:18 Alpha Fetoprotein 1.9 ng/mL (0.0-7.5) 09/09/16 06:44 Carcinoembryonic Ag 12.2 ng/mL (0-3.0) H 09/09/16 06:44 CA 19-9 Antigen 109 U/mL (0-37) H D 09/09/16 06:44 CA 125 Antigen 129 U/mL (0-35) H D 09/09/16 06:44 Urine Color [place] (YELLOW) 09/08/16 14:53 Urine Clarity Hazy (Clear) 09/08/16 14:53 Urine pH 6.0 (5.0-8.0) 09/08/16 14:53 Ur Specific [place] 1.013 (1.003-1.030) 09/08/16 14:53 Urine Protein Negative mg/dL (NEGATIVE) 09/08/16 14:53 Urine Glucose (UA) Normal mg/dL (Normal) 09/08/16 14:53 Urine Ketones Negative mg/dL (NEGATIVE) 09/08/16 14:53 Urine Blood 2+ (NEGATIVE) H 09/08/16 14:53 Urine Nitrate Negative (NEGATIVE) 09/08/16 14:53 Urine Bilirubin 2+ (NEGATIVE) H 09/08/16 14:53 Urine Urobilinogen 4.0 mg/dL (0.2-1.0) H 09/08/16 14:53 Ur Leukocyte Esterase Neg Ashley/uL (Negative) 09/08/16 14:53 Urine WBC (Auto) 5 /hpf (0-5) 09/08/16 14:53 Urine RBC (Auto) 1 /hpf (0-3) 09/08/16 14:53 Ur Squamous Epith Cells < 1 /hpf (0-5) 09/08/16 14:53 Urine Bacteria Rare (<OCC) 09/08/16 14:53 Hyaline Casts 3-5 /lpf (0-2) H 09/08/16 14:53 Urine Osmolality 463 mosm/kg (300-1000) 09/11/16 10:06 Ur Random Creatinine 97.7 mg/dL 09/11/16 10:06 Ur Random Sodium 68 mmol/L 09/11/16 10:06 Urine HCG, Qual Negative (NEGATIVE) 09/08/16 14:53 Urine Opiates Screen Negative (NEGATIVE) 09/08/16 14:53 Urine Methadone Screen Negative (NEGATIVE) 09/08/16 14:53 Acetaminophen < 10.0 ug/mL (10.0-30.0) L 09/09/16 11:17 Ur Barbiturates Screen Negative (NEGATIVE) 09/08/16 14:53 Ur Phencyclidine Scrn Negative (NEGATIVE) 09/08/16 14:53 Ur Amphetamines Screen Negative (NEGATIVE) 09/08/16 14:53 U Benzodiazepines Scrn Negative (NEGATIVE) 09/08/16 14:53 U Oth Cocaine Metabols Negative (NEGATIVE) 09/08/16 14:53 U Cannabinoids Screen Negative (NEGATIVE) 09/08/16 14:53 Alcohol, Quantitative < 10 mg/dl (0-10) 09/08/16 14:07 IgG 2010.5 mg/dL (700.0-1600.0) H 09/09/16 13:38 IgA 331.7 mg/dL (70.0-400.0) 09/09/16 13:38 IgM 348.7 mg/dL (40.0-230.0) H 09/09/16 13:38 KEN 6 Profile Negative (NEGATIVE) 09/09/16 13:38 Anti-Mitochondrial Ab Negative (Negative) 09/09/16 13:38 Smooth Muscle Ab Titer 1:20 Titer (< 1:20) H 09/09/16 13:38 Anti-Smooth Muscle Ab Positive (Negative) H 09/09/16 13:38 Liver/Kid Microsomes Ab <=20.0 U (<=20.0) 09/09/16 13:38 Hepatitis A IgM Ab Negative (NEGATIVE) 09/09/16 06:44 Hep Bs Antigen Negative (NEGATIVE) 09/09/16 06:44 Hep B Core IgM Ab Negative (NEGATIVE) 09/09/16 06:44 Hepatitis C Antibody Reactive (NEGATIVE) H 09/09/16 06:44 Hepatitis C RNA 1623 IU/mL (<15) H 09/09/16 13:38 HCV RNA Qual (TMA) Detected H 09/09/16 06:44 HCV RNA Quant (PCR) 3.21 log IU/mL (<1.18) H 09/09/16 13:38 Blood Type B POSITIVE 09/10/16 11:15 Antibody Screen Negative 09/10/16 11:15 - Hospital Course Hospital Course: H&P Patient is a 51 year old female PMHx of EtOH abuse, liver cirrhosis, hypertension, asthma, bronchitis, depression, anxiety, hepatitis C, diabetes, GI bleed, sepsis, seizure disorder, gastritis brought in by her fiance for altered mental status. As per fiance, patient was at baseline last evening around 9pm when she was oriented, ambulating, and they watched a movie together and ate dinner. However when he visited patient this morning at around 8am he noticed she was "more yellow than usual and even her tears were yellow." Patient was also confused and acting inappropriately. Patient wanted to fall asleep and was refusing to eat and would stare blankly at the ceiling. Patient refused her daily breakfast of pancakes but did take her daily medications. She was disheveled and lost control of bowel and bladder function. Patient's fiance did not notice any blood in her stool or urine or any melanotic stool, but did notice that her urine was very yellow. She was weak and unable to walk to the bathroom. Patient's fiance noticed that she has been losing weight unintentionally but her appetite has remained the same. Patient was able to recognize who fiance was and her other family members [ granddaughter and daughter at bedside] but was not oriented to self, place, or time. Hospital Course Patient is a 51 y/o F who presented with altered mental status. Her ammonia level was found to be 57 on admission. GI was consulted. A CT head w/o contrast showed generalized atrophy, nonspecific white matter changes, right frontal encephalomalacia re-identified. Her ammonia elevated to 100 and gradually returned to wnl. An Abdominal u/s showed echogenic liver may be seen in setting of hepatic parenchymal disease or fatty infiltration. mildly nodular hepatic contour, mild intrahepatic biliary ductal dilatation, gallbladder wall thickening/pericholecystic edema, gallbladder sludge, tiny probably gallbladder polyp measuring approximately 2mm, negative sonographic Bruner's sign as assessed by the backhaul driver, splenomegaly. A CT chest, abdomen, pelvis w/o contrast showed advanced cirrhosis with findings suggestive of portal hypertension; Splenomegaly and multiple collateral vessels seein related to portal HTN; splenomegaly. She was found to have a UTI and started on Cipro. She was found to be anemic and transfused 1 unit of blood. She was found to have autoimmune hepatitis as well as Hep C. An endoscopy was performed showing small esophageal verices, retained food, portal hyptertensive gastropathy, and normal duodenum. Her hgb and hct was stable. She was determined medically stable for discharge. She was advised to: please follow up with your primary care physician and lumber piler within a week of discharge; please follow up with gastroenterology for pathology results; please eat yogurt while finishing your course of antibiotics; please take medications as prescribed; please refrain from alcohol, tobacco, or illegal drug use; and if you begin bleeding, have altered mental status, or your condition worsens or new symptoms arise, please return to the emergency room. She and her verbalized understanding and she was discharged home. This is a brief summary of the patient's stay at this facility. For more information, please see patient's full chart. - Date & Time of H&P Date of H&P: 09/08/16 Time of H&P: 14:30 Discharge Exam - Head Exam Head Exam: ATRAUMATIC, NORMOCEPHALIC - Eye Exam Eye Exam: EOMI, PERRL, Scleral icterus Pupil Exam: NORMAL ACCOMODATION, PERRL - ENT Exam ENT Exam: Mucous Membranes Moist, Normal Oropharynx - Respiratory Exam Respiratory Exam: Clear to PA & Lateral, NORMAL BREATHING PATTERN. absent: Rales, Rhonchi, Wheezes - Cardiovascular Exam Cardiovascular Exam: REGULAR RHYTHM, +S1, +S2. absent: Gallop, Rubs, Systolic Murmur - GI/Abdominal Exam GI & Abdominal Exam: Normal Bowel Sounds, Soft. absent: Distended, Guarding, Tenderness - Extremities Exam Extremities exam: normal capillary refill, normal inspection, pedal pulses present - Back Exam Back exam: NORMAL INSPECTION. absent: rash noted, tenderness - Neurological Exam Neurological exam: Alert, CN II-XII Intact, Oriented x3 - Psychiatric Exam Psychiatric exam: Normal Affect, Normal Mood - Skin Skin Exam: Dry, Intact, Warm Additional comments: jaundiced Discharge Plan - Discharge Medications Prescriptions: RX: Multivitamin [Multivitamins] 1 tab PO DAILY #30 - Follow Up Plan Condition: FAIR Disposition: Trans to Other Acute Care Hosp Instructions: Hepatitis C (DC), Acute Abdominal Pain (DC), Acute Abdominal Pain (GEN), Altered Mental Status (GEN) Additional Instructions: You are medically stable for discharge. Please follow up with your primary care physician and lumber piler within a week of discharge. Please follow up with gastroenterology for pathology results. Please eat yogurt while finishing your course of antibiotics. Please take medications as prescribed. Please refrain from alcohol, tobacco, or illegal drug use. If you begin bleeding, have altered mental status, or your condition worsens or new symptoms arise, please return to the emergency room. Referrals: Ariel OSEGUERA,MD Yonathan [Medical Doctor] - <Avril Pablo V - Last Filed: 12/17/16 00:58> Provider - Provider Date of Admission: 09/08/16 14:02 Attending physician: Avril Pablo, Hospital Course - Lab Results Lab Results: Micro Results 09/11/16 09:30 Urine,Catheterized Urine Culture - Final Vancomycin Res E.faecalis Most Recent Lab Values WBC 8.4 K/uL (4.8-10.8) 09/15/16 07:18 RBC 2.31 Mil/uL (3.80-5.20) L 09/15/16 07:18 Hgb 8.4 g/dL (11.0-16.0) L 09/15/16 07:18 Hct 24.4 % (34.0-47.0) L 09/15/16 07:18 MCV 105.7 fL (81.0-99.0) H 09/15/16 07:18 MCH 36.3 pg (27.0-31.0) H 09/15/16 07:18 MCHC 34.3 g/dL (33.0-37.0) 09/15/16 07:18 RDW 28.7 % (11.5-14.5) H 09/15/16 07:18 Plt Count 71 K/uL (130-400) L 09/15/16 07:18 MPV 8.1 fL (7.2-11.7) 09/15/16 07:18 Neut % (Auto) 78.2 % (50.0-75.0) H 09/15/16 07:18 Lymph % (Auto) 9.0 % (20.0-40.0) L 09/15/16 07:18 Boundary % (Auto) 12.6 % (0.0-10.0) H 09/15/16 07:18 Eos % (Auto) 0.1 % (0.0-4.0) 09/15/16 07:18 Baso % (Auto) 0.1 % (0.0-2.0) 09/15/16 07:18 Neut # 6.5 K/uL (1.8-7.0) 09/15/16 07:18 Lymph # 0.7 K/uL (1.0-4.3) L 09/15/16 07:18 Boundary # 1.0 K/uL (0.0-0.8) H 09/15/16 07:18 Eos # 0.0 K/uL (0.0-0.7) 09/15/16 07:18 Baso # 0.0 K/uL (0.0-0.2) 09/15/16 07:18 Neutrophils % (Manual) 81 % (50-75) H 09/15/16 07:18 Lymphocytes % (Manual) 8 % (20-40) L 09/15/16 07:18 Monocytes % (Manual) 11 % (0-10) H 09/15/16 07:18 Differential Comment 09/11/16 08:05 Toxic Granulation Present 09/13/16 06:50 Platelet Estimate Decreased (NORMAL) L 09/15/16 07:18 Large Platelets Present 09/13/16 06:50 Polychromasia Slight 09/14/16 07:25 Hypochromasia (manual) Slight 09/15/16 07:18 Poikilocytosis (manual Slight 09/15/16 07:18 Anisocytosis (manual) Slight 09/15/16 07:18 Microcytosis (manual) Slight 09/15/16 07:18 Macrocytosis (manual) Slight 09/15/16 07:18 Target Cells Slight 09/12/16 07:18 Ovalocytes Slight 09/13/16 06:50 [place] Cells Slight 09/15/16 07:18 PT 17.5 SECONDS (9.7-12.2) H D 09/15/16 07:18 INR 1.5 D 09/15/16 07:18 APTT 44 SECONDS (21-34) H 09/14/16 07:25 Sodium 136 mmol/L (132-148) 09/15/16 07:18 Potassium 4.0 mmol/L (3.6-5.2) 09/15/16 07:18 Chloride 107 mmol/L (98-107) 09/15/16 07:18 Carbon Dioxide 18 mmol/L (22-30) L 09/15/16 07:18 Anion Gap 15 (10-20) 09/15/16 07:18 BUN 22 mg/dL (7-17) H 09/15/16 07:18 Creatinine 0.9 MG/DL (0.7-1.2) 09/15/16 07:18 Est GFR ( Amer) > 60 09/15/16 07:18 Est GFR (Non-Af Amer) > 60 09/15/16 07:18 POC Glucose (mg/dL) 111 mg/dL (65-110) H 09/15/16 12:10 Random Glucose 99 mg/dL (65-105) 09/15/16 07:18 Hemoglobin A1c 4.2 % (4.2-6.5) 09/09/16 06:44 Serum Osmolality 295 mosm/kg (272-300) 09/08/16 23:06 Calcium 10.0 mg/dl (8.6-10.4) 09/15/16 07:18 Phosphorus 3.5 mg/dL (2.5-4.5) 09/15/16 07:18 Magnesium 2.2 mg/dL (1.6-2.3) 09/15/16 07:18 Total Bilirubin 13.6 mg/dL (0.2-1.3) H 09/15/16 07:18 Direct Bilirubin 20.3 mg/dL (0.0-0.4) H 09/11/16 08:05 GGT 82 U/L (8-78) H 09/09/16 06:44 AST 58 U/L (14-36) H D 09/15/16 07:18 ALT 56 U/L (9-52) H 09/15/16 07:18 Alkaline Phosphatase 92 U/L (38-126) 09/15/16 07:18 Ammonia 47 umol/L (9-33) H 09/15/16 07:18 Lactate Dehydrogenase 474 U/L (313-618) 09/08/16 14:07 Troponin I 0.0140 ng/mL (0.00-0.120) 09/08/16 14:07 Total Protein 6.5 g/dL (6.3-8.3) 09/15/16 07:18 Albumin 3.1 g/dL (3.5-5.0) L 09/15/16 07:18 Globulin 3.4 gm/dL (2.2-3.9) 09/15/16 07:18 Albumin/Globulin Ratio 0.9 (1.0-2.1) L 09/15/16 07:18 Alpha Fetoprotein 1.9 ng/mL (0.0-7.5) 09/09/16 06:44 Carcinoembryonic Ag 12.2 ng/mL (0-3.0) H 09/09/16 06:44 CA 19-9 Antigen 109 U/mL (0-37) H D 09/09/16 06:44 CA 125 Antigen 129 U/mL (0-35) H D 09/09/16 06:44 Urine Color [place] (YELLOW) 09/08/16 14:53 Urine Clarity Hazy (Clear) 09/08/16 14:53 Urine pH 6.0 (5.0-8.0) 09/08/16 14:53 Ur Specific [place] 1.013 (1.003-1.030) 09/08/16 14:53 Urine Protein Negative mg/dL (NEGATIVE) 09/08/16 14:53 Urine Glucose (UA) Normal mg/dL (Normal) 09/08/16 14:53 Urine Ketones Negative mg/dL (NEGATIVE) 09/08/16 14:53 Urine Blood 2+ (NEGATIVE) H 09/08/16 14:53 Urine Nitrate Negative (NEGATIVE) 09/08/16 14:53 Urine Bilirubin 2+ (NEGATIVE) H 09/08/16 14:53 Urine Urobilinogen 4.0 mg/dL (0.2-1.0) H 09/08/16 14:53 Ur Leukocyte Esterase Neg Ashley/uL (Negative) 09/08/16 14:53 Urine WBC (Auto) 5 /hpf (0-5) 09/08/16 14:53 Urine RBC (Auto) 1 /hpf (0-3) 09/08/16 14:53 Ur Squamous Epith Cells < 1 /hpf (0-5) 09/08/16 14:53 Urine Bacteria Rare (<OCC) 09/08/16 14:53 Hyaline Casts 3-5 /lpf (0-2) H 09/08/16 14:53 Urine Osmolality 463 mosm/kg (300-1000) 09/11/16 10:06 Ur Random Creatinine 97.7 mg/dL 09/11/16 10:06 Ur Random Sodium 68 mmol/L 09/11/16 10:06 Urine HCG, Qual Negative (NEGATIVE) 09/08/16 14:53 Urine Opiates Screen Negative (NEGATIVE) 09/08/16 14:53 Urine Methadone Screen Negative (NEGATIVE) 09/08/16 14:53 Acetaminophen < 10.0 ug/mL (10.0-30.0) L 09/09/16 11:17 Ur Barbiturates Screen Negative (NEGATIVE) 09/08/16 14:53 Ur Phencyclidine Scrn Negative (NEGATIVE) 09/08/16 14:53 Ur Amphetamines Screen Negative (NEGATIVE) 09/08/16 14:53 U Benzodiazepines Scrn Negative (NEGATIVE) 09/08/16 14:53 U Oth Cocaine Metabols Negative (NEGATIVE) 09/08/16 14:53 U Cannabinoids Screen Negative (NEGATIVE) 09/08/16 14:53 Alcohol, Quantitative < 10 mg/dl (0-10) 09/08/16 14:07 IgG 2010.5 mg/dL (700.0-1600.0) H 09/09/16 13:38 IgA 331.7 mg/dL (70.0-400.0) 09/09/16 13:38 IgM 348.7 mg/dL (40.0-230.0) H 09/09/16 13:38 KEN 6 Profile Negative (NEGATIVE) 09/09/16 13:38 Anti-Mitochondrial Ab Negative (Negative) 09/09/16 13:38 Smooth Muscle Ab Titer 1:20 Titer (< 1:20) H 09/09/16 13:38 Anti-Smooth Muscle Ab Positive (Negative) H 09/09/16 13:38 Liver/Kid Microsomes Ab <=20.0 U (<=20.0) 09/09/16 13:38 Hepatitis A IgM Ab Negative (NEGATIVE) 09/09/16 06:44 Hep Bs Antigen Negative (NEGATIVE) 09/09/16 06:44 Hep B Core IgM Ab Negative (NEGATIVE) 09/09/16 06:44 Hepatitis C Antibody Reactive (NEGATIVE) H 09/09/16 06:44 Hepatitis C RNA 1623 IU/mL (<15) H 09/09/16 13:38 HCV RNA Qual (TMA) Detected H 09/09/16 06:44 HCV RNA Quant (PCR) 3.21 log IU/mL (<1.18) H 09/09/16 13:38 Blood Type B POSITIVE 09/10/16 11:15 Antibody Screen Negative 09/10/16 11:15 Attending/Attestation - Attestation I have personally seen and examined this patient.: Yes I have fully participated in the care of the patient.: Yes I have reviewed all pertinent clinical information, including history, physical exam and plan: Yes
[2016-09-15] MEDS: Multiple Vitamins Tab PO SCH (13:55)
[2016-09-15 13:56] VITALS: BP 136/80
[2016-09-15] MEDS: PrednisoLONE 6 MG/2 ML SYR PO SCH (13:56)
[2016-09-15] MEDS ORDERED: Propranolol 5 mg Tab PO SCH (14:00)
== END 2016-09-15 15:40 | disposition short-term general hospital (02) | DRG 557 ==
LOC: C.ER 10:52 → C.9E 14:02 → C.3T 16:02 → C.5T 09-14 13:49
PROVIDERS: ADMIT Hospitalist; ATTEND Hospitalist
PROC: 02HV33Z Insertion of Infusion Device into Superior Vena Cava, Percutaneous Approach (ICD-10-PCS; 2016-09-14)
PROC: B518ZZA Fluoroscopy of Superior Vena Cava, Guidance (ICD-10-PCS; 2016-09-14)
PROC: 30233K1 Transfusion of Nonautologous Frozen Plasma into Peripheral Vein, Percutaneous Approach (ICD-10-PCS; 2016-09-14)
PROC: 0DB68ZX Excision of Stomach, Via Natural or Artificial Opening Endoscopic, Diagnostic (ICD-10-PCS; principal; 2016-09-15 09:56)
DX: K70.40 Alcoholic hepatic failure without coma (principal); N17.9 Acute kidney failure, unspecified; K70.30 Alcoholic cirrhosis of liver without ascites; K76.7 Hepatorenal syndrome; E11.9 Type 2 diabetes mellitus without complications; I12.9 Hypertensive chronic kidney disease with stage 1 through stage 4 chronic kidney disease, or unspecified chronic kidney disease; D63.8 Anemia in other chronic diseases classified elsewhere; I85.10 Secondary esophageal varices without bleeding; J44.9 Chronic obstructive pulmonary disease, unspecified; B18.2 Chronic viral hepatitis C; E11.22 Type 2 diabetes mellitus with diabetic chronic kidney disease; N18.9 Chronic kidney disease, unspecified; N39.0 Urinary tract infection, site not specified; K76.6 Portal hypertension; F10.20 Alcohol dependence, uncomplicated; J45.909 Unspecified asthma, uncomplicated; Z16.21 Resistance to vancomycin; F17.210 Nicotine dependence, cigarettes, uncomplicated; F41.8 Other specified anxiety disorders; Z79.4 Long term (current) use of insulin

== ENCOUNTER 2016-10-05 17:03 | Inpatient (IN) | payer MEDICAID ==
[2016-10-05 17:04] VITALS: BMI 22.3
[2016-10-05] MEDS ORDERED: Sodium Chloride 0.9% 1,000 ML IV ONE (18:17)
[2016-10-05 18:39] LABS: ADD MANUAL DIFF? NO
[2016-10-05] MEDS ORDERED: Sodium Chloride 0.9% 1,000 ML ONE (18:45)
[2016-10-05 18:48] LABS: BASO # 0.1 K/uL (0.0-0.2); EOS # 0.1 K/uL (0.0-0.7); EOS % 1.2 % (0.0-4.0); HEMATOCRIT 28.8 % (34.0-47.0); LYMPH # 3.1 K/uL (1.0-4.3); LYMPH % 40.4 % (20.0-40.0); MEAN CELL VOLUME 108.6 fL (81.0-99.0); MEAN CORPUSCULAR HEMOGLOBIN 37.7 pg (27.0-31.0); MEAN CORPUSCULAR HGB CONC 34.7 g/dL (33.0-37.0); MEAN PLATELET VOLUME 8.4 fL (7.2-11.7); MONO # 0.7 K/uL (0.0-0.8); MONO % 9.5 % (0.0-10.0); PLATELET COUNT 109 K/uL (130-400); WHITE BLOOD COUNT 7.8 K/uL (4.8-10.8)
[2016-10-05 18:54] LABS: ALB/GLOB RATIO 0.8 (1.0-2.1); ALCOHOL SERUM < 10 mg/dl (0-10); ALKALINE PHOSPHATASE 183 U/L (38-126); ALT/SGPT 63 U/L (9-52); AST/SGOT 117 U/L (14-36); BILIRUBIN,TOTAL 8.5 mg/dL (0.2-1.3); BLOOD UREA NITROGEN 28 mg/dL (7-17); CALCIUM 8.7 mg/dl (8.6-10.4); CARBON DIOXIDE 18 mmol/L (22-30); CHLORIDE 108 mmol/L (98-107); GFR AFRICAN-AMERICAN > 60; GLUCOSE,RANDOM 102 mg/dL (65-105); POTASSIUM 4.5 mmol/L (3.6-5.2); SODIUM 137 mmol/L (132-148); TOTAL PROTEIN 7.2 g/dL (6.3-8.3)
[2016-10-05 19:04] LABS: INR 1.47 (0.92-1.08)
[2016-10-05 20:29] LABS: ABG ALLEN TEST POS; DRAW SITE LBA
--- NOTE | 2016-10-05 20:35 | CT ---
EXAM: CT Head Without Intravenous Contrast CLINICAL HISTORY: 51 years old, female; Signs and symptoms; Altered mental status/memory loss; Confusion or disorientation; Additional info: AMS TECHNIQUE: Axial computed tomography images of the head/brain without intravenous contrast. This CT exam was performed using one or more of the following dose reduction techniques: automated exposure control, adjustment of the mA and/or kV according to patient size, and/or use of iterative reconstruction technique. EXAM DATE/TIME: 10/05/2016 6:18 PM COMPARISON: Prior head CT of 01/29/2016 FINDINGS: LIMITATIONS: Exam is somewhat limited by mild streak/motion artifact. BRAIN: Stable appearance of a focal area of encephalomalacia in the right frontal lobe anteromedially, most likely related to a chronic infarct. Grossly stable appearance of multifocal, scattered, bilateral areas of hypodensity in the white matter bilaterally. Physiologic basal ganglia calcification. Diffuse, mild, age-related cortical atrophy and ventriculomegaly. No significant acute abnormality identified. No acute hemorrhage seen within the brain. No acute extra-axial fluid collections visualized. No evidence of significant mass effect within the brain. VENTRICLES: See above. BONES/JOINTS: No acute fractures or other acute bony abnormality noted. SOFT TISSUES: No acute abnormality of the visualized soft tissues is seen. SINUSES: Visualized paranasal sinuses appear clear. MASTOID AIR CELLS: Mastoid air cells appear clear. IMPRESSION: - No acute findings seen within the brain. Stable appearance of the brain compared to a prior exam. - White matter disease, nonspecific in appearance, but most likely secondary to chronic small vessel ischemic changes. Recommend clinical correlation. - Focal encephalomalacia in the right frontal lobe. - See above for remaining findings.
--- NOTE | 2016-10-05 21:07 | C.PDOC ---
Time Seen by Provider: 10/05/16 18:04 Chief Complaint (Nursing): Altered Mental Status History Per: Family History/Exam Limitations: Clinical Condition Onset/Duration Of Symptoms: Days (1?) Current Symptoms Are (Timing): Worse Usual Baseline: Alert Oriented, Ambulatory Exacerbating Factor(s): Liver Disease Use Of Anticoag/Antiplatelets: No Severity: Severe Additional History Per: Prior Records Associated Symptoms: Disoriented, Confused, Weakness Past Medical History Reviewed: Historical Data, Nursing Documentation, Vital Signs Vital Signs: Last Vital Signs Temp 97.8 F 10/05/16 17:29 Pulse 64 10/05/16 20:07 Resp 16 10/05/16 20:07 BP 110/68 10/05/16 20:07 Pulse Ox 100 10/05/16 20:07 - Medical History PMH: Anemia, Anxiety, Asthma, Bronchitis, COPD, Depression, Diabetes (type 2), Hepatitis (C), HTN, Peripheral Edema, Chronic Kidney Disease, Seizures - [facility] Procedures ALCOHOL DETOXIFICATION (01/20/13) DRAINAGE OF PERITONEAL CAVITY WITH DRAIN DEV, PERC APPROACH (02/11/15) DRAINAGE OF PERITONEAL CAVITY, PERCUTANEOUS APPROACH (03/04/16) DRAINAGE OF PERITONEAL CAVITY, PERCUTANEOUS APPROACH, DIAGN (03/04/16) EXCISION OF STOMACH, ENDO, DIAGN (09/08/16) FLUOROSCOPY OF SUPERIOR VENA CAVA, GUIDANCE (09/08/16) INFLUENZA VACCINATION (06/25/14) INSERTION OF INFUSION DEV INTO SUP VENA CAVA, PERC APPROACH (09/08/16) INSPECTION OF UPPER INTESTINAL TRACT, ENDO (03/04/16) OCCLUSION ESOPHAGEAL VEIN W EXTRALUM DEV, PERC ENDO (02/11/15) OTHER ENDOSCOPY OF SM INTEST (06/25/14) TRANSFUSE NONAUT FROZEN PLASMA IN PERIPH VEIN, PERC (09/08/16) VACCINATION NEC (06/25/14) Family History: States: Unknown Family Hx - Social History Hx Tobacco Use: Yes (light smoker) Hx Alcohol Use: Yes Hx Substance Use: No - Immunization History Hx Tetanus Toxoid Vaccination: No Hx Influenza Vaccination: No Hx Pneumococcal Vaccination: No Review Of Systems Review Of Systems: ROS cannot be obtained secondary to pt's inabilty to answer questions. Physical Exam - Physical Exam Appears: Confused, Chronically Ill Skin: Warm, Dry, Jaundice Head: Atraumatic Eye(s): bilateral: PERRL, Scleral Icterus Neck: Normal ROM, Supple Cardiovascular: Rhythm Regular Respiratory: Normal Breath Sounds, No Accessory Muscle Use Gastrointestinal/Abdominal: Soft Extremity: Normal ROM Neurological/Psych: Eyes Open With Command, Other (Moving all extremities) ED Course And Treatment - Laboratory Results Result Diagrams: 10/05/16 18:37 10/05/16 18:37 Lab Interpretation: Abnormal Interpretation Of Abnormal: High ammonia level. O2 Sat by Pulse Oximetry: 100 Pulse Ox Interpretation: Normal - Radiology CXR: Interpreted by Me, Viewed By Me CXR Interpretation: Yes: No Acute Disease - CT Scan/US CT head Other Rad Studies (CT/US): Read By Radiologist, Radiology Report Reviewed CT/US Interpretation: IMPRESSION: - No acute findings seen within the brain. Stable appearance of the brain. compared to a prior exam. - White matter disease, nonspecific in appearance, but most likely secondary to. chronic small vessel ischemic changes. Recommend clinical correlation. - Focal encephalomalacia in the right frontal lobe. - See above for remaining findings. - Physician Consult Information Physician Contacted: Getachew Vera (ICU) Outcome Of Conversation: He evaluated pt in the ED and admitted to ICU. Progress - Interventions Interventions:: Observation, Intravenous fluid - Data Reviewed Data Reviewed: Lab, Diagnostic imaging, Old records - Patient Status Patient status: Unchanged - Critical Care Citical Care: Excluding Proc Time Critical Care Time: 60 minutes - Continuity of Care Discussed patient case with:: Patient, Family-HIPPA compliant, ED Nurse, On- call PMD-pt unassigned Discussed pt. case with industrial methods consultant/specialty: Pulmonary/Crit. Care - Patient Plan Patient Plan: Admission, ICU Disposition Discussed With : Glynn Soto Comment: He accepted pt on hospitalist service. Doctor Will See Patient In The: Hospital Counseled Patient/Family Regarding: Studies Performed, Diagnosis - Disposition Disposition: HOSPITALIZED Disposition Time: 21:12 Condition: SERIOUS - Clinical Impression Clinical Impression: Hepatic encephalopathy
--- NOTE | 2016-10-05 21:37 | CP.PCM.CON ---
History of Present Illness - History of Present Illness History of Present Illness: 51yo F. PMHx of EtOH abuse, liver cirrhosis, hypertension, asthma, bronchitis, depression, anxiety, hepatitis C, Autoimmune hepatitis, diabetes, GI bleed, sepsis, seizure disorder, gastritis brought in by her fiance for altered mental status. Patient is obtunded. most likely secondary to hepatic encephalopathy. Review of Systems - Review of Systems Systems not reviewed;Unavailable: Altered Mental Status Past Patient History - Infectious Disease Hx of Infectious Diseases: None - Tetanus Immunizations Tetanus Immunization: Unknown - Past Medical History & Family History Past Medical History?: Yes - Past Social History Smoking Status: Light Smoker < 10 Cigarettes Daily - CARDIAC Hx Hypertension: Yes Hx Peripheral Edema: Yes - PULMONARY Hx Asthma: Yes Hx Bronchitis: Yes Hx Chronic Obstructive Pulmonary Disease (COPD): Yes - NEUROLOGICAL Hx Seizures: Yes - HEENT Hx HEENT Problems: Yes Hx Epistaxis: Yes - RENAL Hx Chronic Kidney Disease: Yes - ENDOCRINE/METABOLIC Hx Diabetes Mellitus Type 2: Yes - HEMATOLOGICAL/ONCOLOGICAL Hx Anemia: Yes - INTEGUMENTARY Hx Dermatological Problems: No - MUSCULOSKELETAL/RHEUMATOLOGICAL Hx Falls: Yes Hx Unsteady Gait: Yes - GASTROINTESTINAL Hx Gastrointestinal Disorders: Yes Hx Esophageal Varices: Yes (February 2015) Hx Liver Failure: Yes (stage IV cirrhosis) Hx Vomiting: Yes Other/Comment: GI BLEED - GENITOURINARY/GYNECOLOGICAL Hx Genitourinary Disorders: Yes Hx Incontinence: Yes - PSYCHIATRIC Hx Anxiety: Yes Hx Depression: Yes Hx Substance Use: No - SURGICAL HISTORY Hx Surgeries: Yes (ectopic ) Hx Section: Yes (x1) - ANESTHESIA Hx Anesthesia: Yes Hx Anesthesia Reactions: No Meds Allergies/Adverse Reactions: Allergies Allergy/AdvReac Type Severity Reaction Status Date / Time Iodinated Contrast Media - Allergy Verified 10/05/16 17:14 Oral and Physical Exam - Constitutional Additional comments: obtunded - Head Exam Head Exam: ATRAUMATIC, NORMAL INSPECTION, NORMOCEPHALIC - Eye Exam Eye Exam: EOMI, Normal appearance, PERRL - Respiratory Exam Respiratory Exam: Clear to Auscultation Bilateral, NORMAL BREATHING PATTERN - Cardiovascular Exam Cardiovascular Exam: REGULAR RHYTHM - GI/Abdominal Exam GI & Abdominal Exam: Normal Bowel Sounds, Soft. absent: Tenderness - Neurological Exam Additional comments: could not assess - Psychiatric Exam Additional comments: obtunded Results - Vital Signs Recent Vital Signs: Last Vital Signs Temp 97.4 F L 10/05/16 21:23 Pulse 63 10/05/16 21:23 Resp 16 10/05/16 21:23 BP 115/67 10/05/16 21:23 Pulse Ox 100 10/05/16 21:23 - Labs Result Diagrams: 10/05/16 18:37 10/05/16 18:37 Labs: Laboratory Results - last 24 hr 10/05/16 10/05/16 10/05/16 18:37 18:37 18:37 WBC 7.8 RBC 2.65 L Hgb 10.0 L Hct 28.8 L MCV 108.6 H D MCH 37.7 H MCHC 34.7 RDW 25.0 H Plt Count 109 L D MPV 8.4 Lymph % (Auto) 40.4 H [place] % (Auto) 9.5 Eos % (Auto) 1.2 Baso % (Auto) 1.0 Lymph # 3.1 [place] # 0.7 Eos # 0.1 Baso # 0.1 PT 16.7 H INR 1.47 H APTT 30 Puncture Site pCO2 pO2 HCO3 ABG pH ABG Total CO2 ABG O2 Saturation ABG Base Excess Robert Test ABG Potassium A-a O2 Difference Respiratory Index Glucose Lactate FiO2 Sodium 137 Potassium 4.5 Chloride 108 H Carbon Dioxide 18 L Anion Gap 16 BUN 28 H Creatinine 1.1 Est GFR ( Amer) > 60 Est GFR (Non-Af Amer) 53 Random Glucose 102 Calcium 8.7 Total Bilirubin 8.5 H AST 117 H D ALT 63 H Alkaline Phosphatase 183 H D Ammonia Troponin I 0.0130 Total Protein 7.2 Albumin 3.1 L Globulin 4.1 H Albumin/Globulin Ratio 0.8 L Arterial Blood Potassium Urine Color Urine pH Ur Specific [place] Urine Protein Urine Glucose (UA) Urine Ketones Urine Blood Urine Nitrate Urine Bilirubin Urine Urobilinogen Ur Leukocyte Esterase Urine Opiates Screen Urine Methadone Screen Ur Barbiturates Screen Ur Phencyclidine Scrn Ur Amphetamines Screen U Benzodiazepines Scrn U Oth Cocaine Metabols U Cannabinoids Screen Alcohol, Quantitative < 10 10/05/16 10/05/16 10/05/16 18:37 19:26 20:15 WBC RBC Hgb Hct MCV MCH MCHC RDW Plt Count MPV Lymph % (Auto) [place] % (Auto) Eos % (Auto) Baso % (Auto) Lymph # [place] # Eos # Baso # PT INR APTT Puncture Site pCO2 pO2 HCO3 ABG pH ABG Total CO2 ABG O2 Saturation ABG Base Excess Roebrt Test ABG Potassium A-a O2 Difference Respiratory Index Glucose Lactate FiO2 Sodium Potassium Chloride Carbon Dioxide Anion Gap BUN Creatinine Est GFR ( Amer) Est GFR (Non-Af Amer) Random Glucose Calcium Total Bilirubin AST ALT Alkaline Phosphatase Ammonia 143 H D Troponin I Total Protein Albumin Globulin Albumin/Globulin Ratio Arterial Blood Potassium Urine Color [place] Urine pH 6.0 Ur Specific [place] 1.017 Urine Protein Negative Urine Glucose (UA) Normal Urine Ketones Negative Urine Blood Negative Urine Nitrate Negative Urine Bilirubin Negative Urine Urobilinogen 4.0 H Ur Leukocyte Esterase Neg Urine Opiates Screen Negative Urine Methadone Screen Negative Ur Barbiturates Screen Negative Ur Phencyclidine Scrn Negative Ur Amphetamines Screen Negative U Benzodiazepines Scrn Negative U Oth Cocaine Metabols Negative U Cannabinoids Screen Negative Alcohol, Quantitative 10/05/16 20:20 WBC RBC Hgb Hct MCV MCH MCHC RDW Plt Count MPV Lymph % (Auto) [place] % (Auto) Eos % (Auto) Baso % (Auto) Lymph # [place] # Eos # Baso # PT INR APTT Puncture Site Lba pCO2 22 L pO2 131 H HCO3 20.6 L ABG pH 7.47 H ABG Total CO2 16.7 L ABG O2 Saturation 100.5 H ABG Base Excess -5.6 L Robert Test Pos ABG Potassium 3.0 L A-a O2 Difference -9.0 Respiratory Index -0.1 Glucose 76 Lactate 1.2 FiO2 21.0 Sodium 149.0 H Potassium Chloride 120.0 H Carbon Dioxide Anion Gap BUN Creatinine Est GFR ( Amer) Est GFR (Non-Af Amer) Random Glucose Calcium Total Bilirubin AST ALT Alkaline Phosphatase Ammonia Troponin I Total Protein Albumin Globulin Albumin/Globulin Ratio Arterial Blood Potassium 3.0 L Urine Color Urine pH Ur Specific [place] Urine Protein Urine Glucose (UA) Urine Ketones Urine Blood Urine Nitrate Urine Bilirubin Urine Urobilinogen Ur Leukocyte Esterase Urine Opiates Screen Urine Methadone Screen Ur Barbiturates Screen Ur Phencyclidine Scrn Ur Amphetamines Screen U Benzodiazepines Scrn U Oth Cocaine Metabols U Cannabinoids Screen Alcohol, Quantitative Assessment & Plan (1) Hepatic encephalopathy Assessment and Plan: 51 year old female PMHx of EtOH abuse, liver cirrhosis, hypertension, asthma, bronchitis, depression, anxiety, hepatitis C, Autoimmune hepatitis, diabetes, GI bleed, sepsis, seizure disorder, gastritis. p/w hepatic encephalopathy. Neuro: Patient is obtunded secondary to hepatic encephalopathy. Pulm: No acute issues, patient maintaining airway, breathing spontaneously on room air. CV: Hemodynamically stable. Propranolol for portal hypertension. Hem: Anemia of chronic disease Renal: urine output within normal limits, will monitor. Gapped metabolic acidosis, with respiratory compensation. Spironolactone and Lasix to prevent ascitic formation. Banana bag@60 x 3 days. ETOH level negative, family states she's been clean for several weeks. Endo: Diabetes mellitus type 2, short acting insulin sliding scale for coverage. GI: Nothing by mouth except for medications. Liver cirrhosis secondary to hepatitis C, autoimmune hepatitis, and EtOH abuse. Rifaximin and lactulose for hepatic encephalopathy. Patient will need referral, again, to transplant center for termite control service representative followup. ID: No acute issues DVT proph - Lovenox GI proph - not currently indicated Code status - full code Crtical Care Time spent 35 minutes The documented time is cumulative and includes review of patient data/exams/labs /chart review and examination of the patient on rounds and throughout the day; time is exclusive of any procedures or teaching time. Status: Acute
[2016-10-05] MEDS ORDERED: Folic Acid 1 MG, Thiamine 100 MG, Multivitamin (MVI) 10 ML in Dextrose 5% In Water 1,00... IV SCH (22:30)
--- NOTE | 2016-10-05 23:24 | CP.PCM.HP ---
Addendum entered and electronically signed by Chemo Rivera DO 10/06/16 06:28 : Stacey Alicea (Sister, NOK): Swapna (family member): Original Note: <Chemo Rivera - Last Filed: 10/06/16 03:32> History of Present Illness - History of Present Illness History of Present Illness: CC: AMS 51 F PMH of EtOH abuse, liver cirrhosis, hypertension, asthma, bronchitis, depression, anxiety, hepatitis C, diabetes, GI bleed, sepsis, seizure disorder, gastritis brought in by her family for altered mental status. Family was bedside. As per fiance, patient was at baseline last night. However, this morning at around 8am he asked her if she wanted coffeee or breakfast and she wasn't responding. Patient was confused and was refusing to eat/drink. Patient just had a blank stare on her face. Patient did not take her daily medications. ROS unobtainable due to AMS. PMD: Dr. Villeda PMH: EtOH abuse, liver cirrhosis, hypertension, asthma, bronchitis, depression, anxiety, hepatitis C, diabetes, GI bleed, sepsis, seizure disorder, gastritis Meds: as per EMR Allergy: iodinated contrast PSH: bilateral tubal ligation, multiple paracentesis, EGD 03/05/16: non bleeding 10cm esophageal ulcer, portal HTN gastropathy, normal duodenum; EGD 02/12/15 esophageal varices and portal HTN gastropathy Hosp: patient was last discharged from in March 2016 after being admitted for GI bleed. FH: Father and brother have hepatitis hepatitis. Sister had an CA Social: patient was drinking 3 beers/day since she was in her teens; as per fiance patient stopped drinking. Patient used to smoke 1/2 ppd since her teens but as per fiance only smokes a couple of puffs now. Denies any travel, sickness , sick contacts. 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 Present on Admission - Present on Admission Any Indicators Present on Admission: No History of DVT/PE: No History of Uncontrolled Diabetes: No Urinary Catheter: No Decubitus Ulcer Present: No Review of Systems - Review of Systems Systems not reviewed;Unavailable: Altered Mental Status Past Patient History - Infectious Disease Hx of Infectious Diseases: None - Tetanus Immunizations Tetanus Immunization: Unknown - Past Medical History & Family History Past Medical History?: Yes - Past Social History Smoking Status: Light Smoker < 10 Cigarettes Daily - CARDIAC Hx Hypertension: Yes Hx Peripheral Edema: Yes - PULMONARY Hx Asthma: Yes Hx Bronchitis: Yes Hx Chronic Obstructive Pulmonary Disease (COPD): Yes - NEUROLOGICAL Hx Seizures: Yes - HEENT Hx HEENT Problems: Yes Hx Epistaxis: Yes - RENAL Hx Chronic Kidney Disease: Yes - ENDOCRINE/METABOLIC Hx Diabetes Mellitus Type 2: Yes - HEMATOLOGICAL/ONCOLOGICAL Hx Anemia: Yes Hx Blood Transfusions: Yes Hx Hepatitis C: Yes - INTEGUMENTARY Hx Dermatological Problems: No - MUSCULOSKELETAL/RHEUMATOLOGICAL Hx Falls: Yes Hx Unsteady Gait: Yes - GASTROINTESTINAL Hx Gastrointestinal Disorders: Yes Hx Esophageal Varices: Yes (February 2015) Hx Liver Failure: Yes (stage IV cirrhosis) Hx Pancreatitis: Yes Hx Vomiting: Yes Other/Comment: GI BLEED - GENITOURINARY/GYNECOLOGICAL Hx Genitourinary Disorders: Yes Hx Incontinence: Yes Hx Urinary Tract Infection: Yes - PSYCHIATRIC Hx Anxiety: Yes Hx Depression: Yes Hx Substance Use: No - SURGICAL HISTORY Hx Surgeries: Yes (ectopic ) Hx Section: Yes (x1) - ANESTHESIA Hx Anesthesia: Yes Hx Anesthesia Reactions: No Meds Allergies/Adverse Reactions: Allergies Allergy/AdvReac Type Severity Reaction Status Date / Time Iodinated Contrast Media - Allergy Verified 10/05/16 17:14 Oral and Physical Exam - Constitutional Appears: Confused, Cachectic, Chronically Ill - Head Exam Head Exam: ATRAUMATIC, NORMOCEPHALIC - Eye Exam Eye Exam: EOMI, Scleral icterus Pupil Exam: PERRL - ENT Exam ENT Exam: Mucous Membranes Dry - Neck Exam Neck exam: Positive for: Normal Inspection - Respiratory Exam Respiratory Exam: Clear to Auscultation Bilateral, NORMAL BREATHING PATTERN - Cardiovascular Exam Cardiovascular Exam: REGULAR RHYTHM, +S1, +S2 - GI/Abdominal Exam GI & Abdominal Exam: Normal Bowel Sounds, Soft. absent: Distended, Firm, Guarding, Rebound, Tenderness - Extremities Exam Extremities exam: Positive for: normal capillary refill, pedal pulses present. Negative for: calf tenderness - Back Exam Back exam: absent: CVA tenderness (L), CVA tenderness (R) - Neurological Exam Neurological exam: Altered - Psychiatric Exam Psychiatric exam: Flat Affect - Skin Skin Exam: Dry, Warm Additional comments: jaundiced Results - Vital Signs Recent Vital Signs: Last Vital Signs Temp 97.4 F L 10/05/16 21:23 Pulse 63 10/05/16 21:23 Resp 16 10/05/16 21:23 BP 115/67 10/05/16 21:23 Pulse Ox 100 10/05/16 21:23 - Labs Result Diagrams: 10/05/16 18:37 10/05/16 18:37 Labs: Laboratory Results - last 24 hr 10/05/16 22:17 POC Glucose (mg/dL) 108 Assessment & Plan - Assessment and Plan (Free Text) Plan: Altered Mental Status Likely secondary to hepatic encephalopathy Ammonia: 143 Urine Tox: negative Alc quant: < 10 Lactulose 20gm po in ED Lactulose 20 mg PO Q8H Xifaxan 550 mg PO BID D5NS 100 cc/hr Dehydration Poor skin turgor D5NS 100 cc/hr Liver Cirrhosis TBili 8.5 AST 117 ALT 63 Alk Phosphatase 183 Xifaxan 550 mg PO BID Strict Is and Os history of Hepatitis C Hep C reactive (09/09/16) Hepatitis C RNA 1623 (09/09/16) History DM Accucheck ACHS History of HTN hold home medications Prophylactic Measures SCDs Protonix 40mg daily Zofran 4 mg IVP Q6H PRN <Glynn Stoo P - Last Filed: 10/10/16 23:22> Results - Vital Signs Recent Vital Signs: Last Vital Signs Temp 98.4 F 10/08/16 07:25 Pulse 98 H 10/08/16 07:25 Resp 20 10/08/16 07:25 BP 142/87 10/08/16 07:25 Pulse Ox 98 10/08/16 07:25 - Labs Result Diagrams: 10/08/16 07:36 10/08/16 07:36 Attending/Attestation - Attestation I have personally seen and examined this patient.: Yes I have fully participated in the care of the patient.: Yes I have reviewed all pertinent clinical information: Yes
[2016-10-05] MEDS ORDERED: NS IV ONE (23:41)
[2016-10-05] MEDS ORDERED: DEXTROSE IV ONE (23:41)
[2016-10-05] MEDS ORDERED: POTASSIUM CHLORIDE IV ONE (23:41)
[2016-10-05 23:47] LABS: RBC URINE < 1 /hpf (0-3); URINE BACTERIA RARE (<OCC); URINE BILIRUBIN NEGATIVE (NEGATIVE); URINE BLOOD NEGATIVE (NEGATIVE); URINE COLOR Amber (YELLOW); URINE GLUCOSE (UA) NORMAL (Normal); URINE KETONE NEGATIVE (NEGATIVE); URINE LEUKOCYTE ESTERASE NEG Leu/uL (Negative); URINE PROTEIN NEGATIVE (NEGATIVE); WBC URINE < 1 /hpf (0-5)
[2016-10-06] MEDS ORDERED: (Novolog) Insulin Aspart, Recombinant 100 u/ml 10 ml vial SC SCH ×2
[2016-10-06 06:44] LABS: BASO % 0.6 % (0.0-2.0); EOS # 0.1 K/uL (0.0-0.7); EOS % 1.2 % (0.0-4.0); HEMATOCRIT 27.3 % (34.0-47.0); LYMPH # 2.1 K/uL (1.0-4.3); LYMPH % 36.3 % (20.0-40.0); MEAN CORPUSCULAR HEMOGLOBIN 39.5 pg (27.0-31.0); MEAN CORPUSCULAR HGB CONC 35.9 g/dL (33.0-37.0); MEAN PLATELET VOLUME 7.9 fL (7.2-11.7); MONO # 0.9 K/uL (0.0-0.8); MONO % 15.2 % (0.0-10.0); RED CELL DISTRIBUTION WIDTH 24.7 % (11.5-14.5); WHITE BLOOD COUNT 5.8 K/uL (4.8-10.8)
[2016-10-06 07:15] LABS: CHLORIDE 112 mmol/L (98-107)
[2016-10-06 07:16] LABS: POTASSIUM 3.8 mmol/L (3.6-5.2); SODIUM 140 mmol/L (132-148)
[2016-10-06 07:18] LABS: ALB/GLOB RATIO 0.7 (1.0-2.1); ALKALINE PHOSPHATASE 167 U/L (38-126); AST/SGOT 108 U/L (14-36); BILIRUBIN,TOTAL 10.2 mg/dL (0.2-1.3); BLOOD UREA NITROGEN 20 mg/dL (7-17); CARBON DIOXIDE 16 mmol/L (22-30); GFR AFRICAN-AMERICAN > 60; GLUCOSE,RANDOM 88 mg/dL (65-105); TOTAL PROTEIN 7.2 g/dL (6.3-8.3)
[2016-10-06 07:19] LABS: ALT/SGPT 62 U/L (9-52); CALCIUM 9.2 mg/dl (8.6-10.4); PHOSPHOROUS 3.6 mg/dL (2.5-4.5)
--- NOTE | 2016-10-06 08:04 | RAD ---
PROCEDURE: CHEST RADIOGRAPH, 1 VIEW HISTORY: Altered mental status COMPARISON: 09/08/2016 FINDINGS: LUNGS: Mild venous congestion. PLEURA: No pneumothorax or pleural fluid seen. CARDIOVASCULAR: Normal. OSSEOUS STRUCTURES: No significant abnormalities. VISUALIZED UPPER ABDOMEN: Normal. OTHER FINDINGS: None. IMPRESSION: Mild venous congestion.
[2016-10-06] MEDS: Enoxaparin 40 mg Syringe SC SCH (10:35)
[2016-10-06] MEDS: Pantoprazole 40 mg EC Tab PO SCH (10:35)
[2016-10-06] MEDS: Multiple Vitamins Tab PO SCH (10:35)
--- NOTE | 2016-10-06 11:26 | CP.PCM.PN ---
<Lary Morataya - Last Filed: 10/06/16 12:28> Subjective - Date & Time of Evaluation Date of Evaluation: 10/06/16 Time of Evaluation: 10:00 - Subjective Subjective: Medicine Note for Dr. Garcia, Patient was seen and examined at bedside. Patient reports she feels better today. She is more alert and oriented. She expressed her concern with trying to go to [facility] but the difficulty lies within transportation. Patient requested her diet be advanced. Denied fever, chills, chest pain, SOB, abdominal pain, or urinary symptoms. Objective - Vital Signs/Intake and Output Vital Signs (last 24 hours): Temp Pulse Resp BP Pulse Ox 97.4 F L 67 18 142/86 100 10/06/16 08:00 10/06/16 11:00 10/06/16 11:00 10/06/16 11:00 10/06/16 11:00 Intake and Output: 10/06/16 10/06/16 06:59 18:59 Intake Total 1730 400 Output Total 800 200 Balance 930 200 - Medications Medications: Current Medications Enoxaparin Sodium (Lovenox) 40 mg SC DAILY [facility] Last Admin: 10/06/16 10:35 Dose: 40 mg Folic Acid (Folic Acid) 1 mg PO DAILY [facility] Last Admin: 10/06/16 10:35 Dose: 1 mg Potassium Chloride 20 meq/ (Dextrose/Sodium Chloride) 1,510 mls @ 100 mls/hr IV .Q15H6M ONE Stop: 10/06/16 14:46 Last Admin: 10/06/16 01:39 Dose: 100 mls/hr Lactulose (Enulose) 30 gm PO Q8H [facility] Last Admin: 10/06/16 06:43 Dose: Not Given Multivitamins (Hexavitamin) 1 tab PO DAILY [facility] Last Admin: 10/06/16 10:35 Dose: 1 tab Pantoprazole Sodium (Protonix Ec Tab) 40 mg PO DAILY [facility] Last Admin: 10/06/16 10:35 Dose: 40 mg Rifaximin (Xifaxan) 550 mg PO BID [facility] Last Admin: 10/06/16 10:36 Dose: Not Given Thiamine HCl (Vitamin B1 Tab) 100 mg PO DAILY [facility] Last Admin: 10/06/16 10:35 Dose: 100 mg - Labs Labs: 10/06/16 06:30 10/06/16 06:30 PT 16.7 SECONDS (9.7-12.2) H 10/05/16 18:37 INR 1.47 (0.92-1.08) H 10/05/16 18:37 APTT 30 SECONDS (21-34) 10/05/16 18:37 - Constitutional Appears: No Acute Distress - Head Exam Head Exam: NORMAL INSPECTION, NORMOCEPHALIC - Respiratory Exam Respiratory Exam: Clear to Ausculation Bilateral, NORMAL BREATHING PATTERN. absent: Wheezes - Cardiovascular Exam Cardiovascular Exam: REGULAR RHYTHM, RRR - GI/Abdominal Exam GI & Abdominal Exam: Soft, Normal Bowel Sounds. absent: Distended, Tenderness - Extremities Exam Extremities Exam: Normal Inspection. absent: Pedal Edema, Tenderness - Neurological Exam Neurological Exam: Alert, Awake, Oriented x3 - Skin Skin Exam: Dry, Intact, Normal Color, Warm Assessment and Plan - Assessment and Plan (Free Text) Plan: Altered Mental Status Likely secondary to hepatic encephalopathy Ammonia: 143 ---> 64 today Urine Tox: negative Alc quant: < 10 Lactulose 20gm po in ED Lactulose 20 mg PO Q8H Xifaxan 550 mg PO BID D5NS 100 cc/hr Dehydration Poor skin turgor D5NS 100 cc/hr Liver Cirrhosis TBili 8.5 --> 10.2 AST 117 ALT 63 Alk Phosphatase 183 Xifaxan 550 mg PO BID Strict Is and Os History of Hepatitis C Hep C reactive (09/09/16) Hepatitis C RNA 1623 (09/09/16) History DM Accucheck ACHS History of HTN hold home medications- will restart tomorrow Prophylactic Measures SCDs Protonix 40mg daily Zofran 4 mg IVP Q6H PRN DW Rafia Jeffries DO, PGY-1 <James Garcia H - Last Filed: 10/06/16 15:27> Objective - Vital Signs/Intake and Output Vital Signs (last 24 hours): Temp Pulse Resp BP Pulse Ox 98.4 F 86 19 137/89 100 10/06/16 12:00 10/06/16 15:00 10/06/16 15:00 10/06/16 15:00 10/06/16 15:00 Intake and Output: 10/06/16 10/06/16 06:59 18:59 Intake Total 1730 800 Output Total 800 200 Balance 930 600 - Medications Medications: Current Medications Enoxaparin Sodium (Lovenox) 40 mg SC DAILY [facility] Last Admin: 10/06/16 10:35 Dose: 40 mg Folic Acid (Folic Acid) 1 mg PO DAILY [facility] Last Admin: 10/06/16 10:35 Dose: 1 mg Sodium Chloride (Sodium Chloride 0.9%) 1,000 mls @ 100 mls/hr IV .Q10H [facility] Last Admin: 10/06/16 15:12 Dose: 100 mls/hr Lactulose (Enulose) 30 gm PO Q8H [facility] Last Admin: 10/06/16 13:05 Dose: Not Given Multivitamins (Hexavitamin) 1 tab PO DAILY [facility] Last Admin: 10/06/16 10:35 Dose: 1 tab Pantoprazole Sodium (Protonix Ec Tab) 40 mg PO DAILY [facility] Last Admin: 10/06/16 10:35 Dose: 40 mg Rifaximin (Xifaxan) 550 mg PO BID [facility] Last Admin: 10/06/16 10:36 Dose: Not Given Thiamine HCl (Vitamin B1 Tab) 100 mg PO DAILY [facility] Last Admin: 10/06/16 10:35 Dose: 100 mg - Labs Labs: 10/06/16 06:30 10/06/16 06:30 PT 16.7 SECONDS (9.7-12.2) H 10/05/16 18:37 INR 1.47 (0.92-1.08) H 10/05/16 18:37 APTT 30 SECONDS (21-34) 10/05/16 18:37 Attending/Attestation - Attestation I have personally seen and examined this patient.: Yes I have fully participated in the care of the patient.: Yes I have reviewed all pertinent clinical information, including history, physical exam and plan: Yes Notes (Text): Medical Attending: Patient was seen and examined by me. Agree with the above note by the resident. The patient was awake and alert, her family member was present and reported her mental status was much improved from before. She was conversant with us, normal affect. For now will continue IVF as she still appears dehyrdated on exam. I explained to them that at some point when she does go home she will need smaller doses of medication for her ascities history thank you James Garcia
[2016-10-06] MEDS: Sodium Chloride 0.9% 1,000 ML IV SCH (15:12)
[2016-10-07] MEDS: Sodium Chloride 0.9% 1,000 ML IV SCH (00:15)
--- NOTE | 2016-10-07 01:56 | CARD ---
APPROVED REPORT EKG Measurement Heart [id number] <Conclusion> Normal sinus rhythm Prolonged QT Abnormal ECG
[2016-10-07 07:35] LABS: EOS # 0.1 K/uL (0.0-0.7); LYMPH # 2.2 K/uL (1.0-4.3); NRBC % 0.1 % (0.0-2.0)
[2016-10-07 07:44] LABS: BASO % 0.5 % (0.0-2.0); EOS % 1.8 % (0.0-4.0); HEMATOCRIT 22.4 % (34.0-47.0); LYMPH % 38.3 % (20.0-40.0); MEAN CORPUSCULAR HEMOGLOBIN 38.6 pg (27.0-31.0); MEAN CORPUSCULAR HGB CONC 35.4 g/dL (33.0-37.0); MEAN PLATELET VOLUME 7.5 fL (7.2-11.7); MONO # 0.8 K/uL (0.0-0.8); MONO % 13.5 % (0.0-10.0); RED CELL DISTRIBUTION WIDTH 24.1 % (11.5-14.5); WHITE BLOOD COUNT 5.8 K/uL (4.8-10.8)
[2016-10-07 07:52] LABS: POTASSIUM 4.7 mmol/L (3.6-5.2)
[2016-10-07 07:54] LABS: BILIRUBIN,TOTAL 7.3 mg/dL (0.2-1.3)
[2016-10-07 07:55] LABS: ALB/GLOB RATIO 0.7 (1.0-2.1); CALCIUM 8.1 mg/dl (8.6-10.4); PHOSPHOROUS 3.5 mg/dL (2.5-4.5); TOTAL PROTEIN 5.8 g/dL (6.3-8.3)
[2016-10-07 07:56] LABS: MAGNESIUM 1.5 mg/dL (1.6-2.3)
[2016-10-07] MEDS ORDERED: Pneumococcal 23-Valent Vaccine IM ONE (10:00)
[2016-10-07] MEDS: Multiple Vitamins Tab PO SCH (10:19)
[2016-10-07] MEDS: Pantoprazole 40 mg EC Tab PO SCH (10:19)
[2016-10-07] MEDS: Enoxaparin 40 mg Syringe SC SCH (10:19)
[2016-10-07] MEDS ORDERED: Albumin Human 25% (12.5 gm/50 ml) IV ONE ×2 (10:30→11:15)
--- NOTE | 2016-10-07 12:15 | CP.PCM.PN ---
<Lary Morataya - Last Filed: 10/07/16 12:12> Subjective - Date & Time of Evaluation Date of Evaluation: 10/07/16 Time of Evaluation: 10:00 - Subjective Subjective: Medicine Note for Dr. Garcia, Patient was seen and examined at bedside. Patient reports she feels better today. She is more alert and oriented. Patient requested her diet be advanced. Denied fever, chills, chest pain, SOB, abdominal pain, or urinary symptoms. Objective - Vital Signs/Intake and Output Vital Signs (last 24 hours): Temp Pulse Resp BP Pulse Ox 99.7 F H 121 H 20 117/68 98 10/07/16 08:20 10/07/16 08:20 10/07/16 08:20 10/07/16 08:20 10/07/16 08:20 Intake and Output: 10/07/16 10/07/16 06:59 18:59 Intake Total 2560 Balance 2560 - Medications Medications: Current Medications Enoxaparin Sodium (Lovenox) 40 mg SC DAILY [facility] Last Admin: 10/07/16 10:19 Dose: 40 mg Folic Acid (Folic Acid) 1 mg PO DAILY [facility] Last Admin: 10/07/16 10:19 Dose: 1 mg Lactulose (Enulose) 30 gm PO Q8H [facility] Last Admin: 10/07/16 06:12 Dose: Not Given Multivitamins (Hexavitamin) 1 tab PO DAILY [facility] Last Admin: 10/07/16 10:19 Dose: 1 tab Pantoprazole Sodium (Protonix Ec Tab) 40 mg PO DAILY [facility] Last Admin: 10/07/16 10:19 Dose: 40 mg Rifaximin (Xifaxan) 550 mg PO BID [facility] Last Admin: 10/07/16 10:20 Dose: 550 mg Thiamine HCl (Vitamin B1 Tab) 100 mg PO DAILY [facility] Last Admin: 10/07/16 10:19 Dose: 100 mg - Labs Labs: 10/07/16 07:18 10/07/16 07:18 PT 16.7 SECONDS (9.7-12.2) H 10/05/16 18:37 INR 1.47 (0.92-1.08) H 10/05/16 18:37 APTT 30 SECONDS (21-34) 10/05/16 18:37 - Constitutional Appears: Chronically Ill - ENT Exam ENT Exam: Mucous Membranes Moist - Respiratory Exam Respiratory Exam: Clear to Ausculation Bilateral, NORMAL BREATHING PATTERN. absent: Accessory Muscle Use, Wheezes - Cardiovascular Exam Cardiovascular Exam: REGULAR RHYTHM, RRR, +S1, +S2 - GI/Abdominal Exam GI & Abdominal Exam: Soft, Normal Bowel Sounds. absent: Distended, Tenderness - Extremities Exam Extremities Exam: Normal Inspection. absent: Pedal Edema, Tenderness - Neurological Exam Neurological Exam: Alert, Awake, Oriented x3 - Skin Skin Exam: Dry, Intact, Warm Assessment and Plan - Assessment and Plan (Free Text) Plan: Altered Mental Status Likely secondary to hepatic encephalopathy Ammonia: 143 ---> 64 yesterday Urine Tox: negative Alc quant: < 10 Lactulose 20gm po in ED Lactulose 30 mg PO Q8H Xifaxan 550 mg PO BID Anemia Hemoglobin 7.9 Consent retrieved Will Transfuse 1 unit Patient given x2 vials albumin Dehydration- resolved Liver Cirrhosis TBili 8.5 --> 10.2-->7.3 Xifaxan 550 mg PO BID Strict Is and Os History of Hepatitis C Hep C reactive (09/09/16) Hepatitis C RNA 1623 (09/09/16) History DM Accucheck ACHS History of HTN hold home medications Prophylactic Measures SCDs Protonix 40mg daily Zofran 4 mg IVP Q6H PRN Diet advanced to altered GI/ hepatic DW Dr. Garcia, [employer]ia [employer], PGY-1 <James Garcia H - Last Filed: 10/07/16 14:41> Objective - Vital Signs/Intake and Output Vital Signs (last 24 hours): Temp Pulse Resp BP Pulse Ox 99.7 F H 121 H 20 117/68 98 10/07/16 08:20 10/07/16 08:20 10/07/16 08:20 10/07/16 08:20 10/07/16 08:20 Intake and Output: 10/07/16 10/07/16 06:59 18:59 Intake Total 2560 Balance 2560 - Medications Medications: Current Medications Enoxaparin Sodium (Lovenox) 40 mg SC DAILY [facility] Last Admin: 10/07/16 10:19 Dose: 40 mg Folic Acid (Folic Acid) 1 mg PO DAILY [facility] Last Admin: 10/07/16 10:19 Dose: 1 mg Lactulose (Enulose) 30 gm PO Q8H [facility] Last Admin: 10/07/16 06:12 Dose: Not Given Multivitamins (Hexavitamin) 1 tab PO DAILY [facility] Last Admin: 10/07/16 10:19 Dose: 1 tab Pantoprazole Sodium (Protonix Ec Tab) 40 mg PO DAILY [facility] Last Admin: 10/07/16 10:19 Dose: 40 mg Rifaximin (Xifaxan) 550 mg PO BID [facility] Last Admin: 10/07/16 10:20 Dose: 550 mg Thiamine HCl (Vitamin B1 Tab) 100 mg PO DAILY [facility] Last Admin: 10/07/16 10:19 Dose: 100 mg - Labs Labs: 10/07/16 07:18 10/07/16 07:18 PT 16.7 SECONDS (9.7-12.2) H 10/05/16 18:37 INR 1.47 (0.92-1.08) H 10/05/16 18:37 APTT 30 SECONDS (21-34) 10/05/16 18:37 Attending/Attestation - Attestation I have personally seen and examined this patient.: Yes I have fully participated in the care of the patient.: Yes I have reviewed all pertinent clinical information, including history, physical exam and plan: Yes Notes (Text): 10/07/16 14:40 Medical Attending: Patient was seen and examined by me. Continue with the lasix as well as with additional runs of albumin. She wanted to try regular diet so will do this. Also anemia noted on CBC, she will get one unit of PRBCs thank you James Garcia
--- NOTE | 2016-10-07 16:44 | RAD ---
HISTORY: Verify Right PICC COMPARISON: Chest x-ray performed 10/05/16 TECHNIQUE: Chest, one view. FINDINGS: Distal tip of right-sided PICC terminates at the expected location of the cavoatrial junction. LUNGS: No focal consolidation. Please note that chest x-ray has limited sensitivity for the detection of pulmonary masses. PLEURA: No significant pleural effusion identified. No definite pneumothorax . CARDIOVASCULAR: The cardiomediastinal silhouette appears within normal limits of size. OSSEOUS STRUCTURES: No acute osseous abnormality identified. VISUALIZED UPPER ABDOMEN: Unremarkable. OTHER FINDINGS: None. IMPRESSION: Distal tip of right-sided PICC terminates at the expected location of the cavoatrial junction.
[2016-10-07 19:38] VITALS: RESP 20
[2016-10-07 20:20] LABS: BASO % 0.7 % (0.0-2.0); EOS # 0.1 K/uL (0.0-0.7); EOS % 1.6 % (0.0-4.0); HEMATOCRIT 24.8 % (34.0-47.0); LYMPH # 2.1 K/uL (1.0-4.3); LYMPH % 35.5 % (20.0-40.0); MEAN CORPUSCULAR HEMOGLOBIN 36.8 pg (27.0-31.0); MEAN CORPUSCULAR HGB CONC 34.6 g/dL (33.0-37.0); MEAN PLATELET VOLUME 7.6 fL (7.2-11.7); MONO # 0.8 K/uL (0.0-0.8); RED CELL DISTRIBUTION WIDTH 24.2 % (11.5-14.5)
[2016-10-07 20:30] LABS: MEAN CELL VOLUME 106.5 fL (81.0-99.0)
[2016-10-08 07:28] VITALS: BP 142/87; PULSE 98; TEMP 98.4; O2SAT 98
[2016-10-08 08:07] LABS: CHLORIDE 109 mmol/L (98-107); POTASSIUM 4.2 mmol/L (3.6-5.2); SODIUM 134 mmol/L (132-148)
[2016-10-08 08:08] LABS: GFR AFRICAN-AMERICAN > 60
[2016-10-08 08:09] LABS: ALB/GLOB RATIO 0.7 (1.0-2.1); ALKALINE PHOSPHATASE 162 U/L (38-126); ALT/SGPT 71 U/L (9-52); AST/SGOT 95 U/L (14-36); BILIRUBIN,TOTAL 10.4 mg/dL (0.2-1.3); BLOOD UREA NITROGEN 15 mg/dL (7-17); CALCIUM 8.1 mg/dl (8.6-10.4); CARBON DIOXIDE 16 mmol/L (22-30); GLUCOSE,RANDOM 104 mg/dL (65-105); MAGNESIUM 1.7 mg/dL (1.6-2.3); PHOSPHOROUS 3.1 mg/dL (2.5-4.5); TOTAL PROTEIN 6.1 g/dL (6.3-8.3)
[2016-10-08 08:13] LABS: BASO # 0.1 K/uL (0.0-0.2); BASO % 0.9 % (0.0-2.0); EOS % 0.8 % (0.0-4.0); HEMATOCRIT 26.4 % (34.0-47.0); LYMPH # 2.1 K/uL (1.0-4.3); LYMPH % 36.4 % (20.0-40.0); MEAN CELL VOLUME 108.2 fL (81.0-99.0); MEAN CORPUSCULAR HEMOGLOBIN 38.5 pg (27.0-31.0); MEAN CORPUSCULAR HGB CONC 35.6 g/dL (33.0-37.0); MONO # 0.9 K/uL (0.0-0.8); MONO % 15.4 % (0.0-10.0); NRBC % 0.4 % (0.0-2.0); RED CELL DISTRIBUTION WIDTH 24.6 % (11.5-14.5); WHITE BLOOD COUNT 5.7 K/uL (4.8-10.8)
[2016-10-08] MEDS: Enoxaparin 40 mg Syringe SC SCH (10:37)
--- NOTE | 2016-10-08 10:38 | CP.PCM.DIS ---
<Lary Morataya - Last Filed: 10/08/16 12:43> Provider - Provider Date of Admission: 10/05/16 21:12 Attending physician: Glynn Soto MD Time Spent in preparation of Discharge (in minutes): 45 Hospital Course - Lab Results Lab Results: Micro Results 10/06/16 15:46 Naris MRSA Culture - Final MRSA NOT DETECTED 10/05/16 22:37 Naris MRSA Culture (Admit) - Final MRSA NOT DETECTED Most Recent Lab Values WBC 5.7 K/uL (4.8-10.8) 10/08/16 07:36 RBC 2.44 Mil/uL (3.80-5.20) L 10/08/16 07:36 Hgb 9.4 g/dL (11.0-16.0) L 10/08/16 07:36 Hct 26.4 % (34.0-47.0) L 10/08/16 07:36 MCV 108.2 fL (81.0-99.0) H 10/08/16 07:36 MCH 38.5 pg (27.0-31.0) H 10/08/16 07:36 MCHC 35.6 g/dL (33.0-37.0) 10/08/16 07:36 RDW 24.6 % (11.5-14.5) H 10/08/16 07:36 Plt Count 74 K/uL (130-400) L 10/08/16 07:36 MPV 8.0 fL (7.2-11.7) 10/08/16 07:36 Neut % (Auto) 46.5 % (50.0-75.0) L 10/08/16 07:36 Lymph % (Auto) 36.4 % (20.0-40.0) 10/08/16 07:36 [place] % (Auto) 15.4 % (0.0-10.0) H 10/08/16 07:36 Eos % (Auto) 0.8 % (0.0-4.0) 10/08/16 07:36 Baso % (Auto) 0.9 % (0.0-2.0) 10/08/16 07:36 Neut # 2.6 K/uL (1.8-7.0) 10/08/16 07:36 Lymph # 2.1 K/uL (1.0-4.3) 10/08/16 07:36 [place] # 0.9 K/uL (0.0-0.8) H 10/08/16 07:36 Eos # 0.0 K/uL (0.0-0.7) 10/08/16 07:36 Baso # 0.1 K/uL (0.0-0.2) 10/08/16 07:36 Differential Comment 10/07/16 07:18 PT 16.7 SECONDS (9.7-12.2) H 10/05/16 18:37 INR 1.47 (0.92-1.08) H 10/05/16 18:37 APTT 30 SECONDS (21-34) 10/05/16 18:37 Puncture Site Lba 10/05/16 20:20 pCO2 22 mm/Hg (35-45) L 10/05/16 20:20 pO2 131 mm/Hg (80-100) H 10/05/16 20:20 HCO3 20.6 mmol/L (21-28) L 10/05/16 20:20 ABG pH 7.47 (7.35-7.45) H 10/05/16 20:20 ABG Total CO2 16.7 mmol/L (22-28) L 10/05/16 20:20 ABG O2 Saturation 100.5 % (95-98) H 10/05/16 20:20 ABG Base Excess -5.6 mmol/L (-2.0-3.0) L 10/05/16 20:20 Robert Test Pos 10/05/16 20:20 ABG Potassium 3.0 mmol/L (3.6-5.2) L 10/05/16 20:20 A-a O2 Difference -9.0 mm/Hg 10/05/16 20:20 Respiratory Index -0.1 10/05/16 20:20 Sodium 149.0 mmol/l (132-148) H 10/05/16 20:20 Chloride 120.0 mmol/L (98-107) H 10/05/16 20:20 Glucose 76 mg/dl (65-105) 10/05/16 20:20 Lactate 1.2 mmol/L (0.7-2.1) 10/05/16 20:20 FiO2 21.0 % 10/05/16 20:20 Sodium 134 mmol/L (132-148) 10/08/16 07:36 Potassium 4.2 mmol/L (3.6-5.2) 10/08/16 07:36 Chloride 109 mmol/L (98-107) H 10/08/16 07:36 Carbon Dioxide 16 mmol/L (22-30) L 10/08/16 07:36 Anion Gap 13 (10-20) 10/08/16 07:36 BUN 15 mg/dL (7-17) 10/08/16 07:36 Creatinine 0.9 MG/DL (0.7-1.2) 10/08/16 07:36 Est GFR ( Amer) > 60 10/08/16 07:36 Est GFR (Non-Af Amer) > 60 10/08/16 07:36 POC Glucose (mg/dL) 106 mg/dL (65-110) 10/07/16 21:34 Random Glucose 104 mg/dL (65-105) 10/08/16 07:36 Calcium 8.1 mg/dl (8.6-10.4) L 10/08/16 07:36 Phosphorus 3.1 mg/dL (2.5-4.5) 10/08/16 07:36 Magnesium 1.7 mg/dL (1.6-2.3) 10/08/16 07:36 Total Bilirubin 10.4 mg/dL (0.2-1.3) H 10/08/16 07:36 AST 95 U/L (14-36) H 10/08/16 07:36 ALT 71 U/L (9-52) H 10/08/16 07:36 Alkaline Phosphatase 162 U/L (38-126) H D 10/08/16 07:36 Ammonia 64 umol/L (9-33) H D 10/06/16 06:30 Troponin I 0.0130 ng/mL (0.00-0.120) 10/05/16 18:37 Total Protein 6.1 g/dL (6.3-8.3) L 10/08/16 07:36 Albumin 2.5 g/dL (3.5-5.0) L 10/08/16 07:36 Globulin 3.6 gm/dL (2.2-3.9) 10/08/16 07:36 Albumin/Globulin Ratio 0.7 (1.0-2.1) L 10/08/16 07:36 Arterial Blood Potassium 3.0 mmol/L (3.6-5.2) L 10/05/16 20:20 Urine Color [place] (YELLOW) 10/05/16 23:47 Urine Appearance Cancelled 10/05/16 19:26 Urine Clarity Clear (Clear) 10/05/16 23:47 Urine pH 6.0 (5.0-8.0) 10/05/16 23:47 Ur Specific [place] 1.017 (1.003-1.030) 10/05/16 23:47 Urine Protein Negative mg/dL (NEGATIVE) 10/05/16 23:47 Urine Glucose (UA) Normal mg/dL (Normal) 10/05/16 23:47 Urine Ketones Negative mg/dL (NEGATIVE) 10/05/16 23:47 Urine Blood Negative (NEGATIVE) 10/05/16 23:47 Urine Nitrate Negative (NEGATIVE) 10/05/16 23:47 Urine Bilirubin Negative (NEGATIVE) 10/05/16 23:47 Urine Urobilinogen 4.0 mg/dL (0.2-1.0) H 10/05/16 23:47 Ur Leukocyte Esterase Neg Ashley/uL (Negative) 10/05/16 23:47 Urine WBC (Auto) < 1 /hpf (0-5) 10/05/16 23:47 Urine RBC (Auto) < 1 /hpf (0-3) 10/05/16 23:47 Ur Squamous Epith Cells < 1 /hpf (0-5) 10/05/16 23:47 Urine Bacteria Rare (<OCC) 10/05/16 23:47 Urine HCG, Qual Negative (NEGATIVE) 10/06/16 04:02 Urine Opiates Screen Negative (NEGATIVE) 10/05/16 20:15 Urine Methadone Screen Negative (NEGATIVE) 10/05/16 20:15 Ur Barbiturates Screen Negative (NEGATIVE) 10/05/16 20:15 Ur Phencyclidine Scrn Negative (NEGATIVE) 10/05/16 20:15 Ur Amphetamines Screen Negative (NEGATIVE) 10/05/16 20:15 U Benzodiazepines Scrn Negative (NEGATIVE) 10/05/16 20:15 U Oth Cocaine Metabols Negative (NEGATIVE) 10/05/16 20:15 U Cannabinoids Screen Negative (NEGATIVE) 10/05/16 20:15 Alcohol, Quantitative < 10 mg/dl (0-10) 10/05/16 18:37 Blood Type B POSITIVE 10/07/16 11:49 Antibody Screen Negative 10/07/16 11:49 - Hospital Course Hospital Course: Upon Admission: CC: AMS 51 F PMH of EtOH abuse, liver cirrhosis, hypertension, asthma, bronchitis, depression, anxiety, hepatitis C, diabetes, GI bleed, sepsis, seizure disorder, gastritis brought in by her family for altered mental status. Family was bedside. As per fiance, patient was at baseline last night. However, this morning at around 8am he asked her if she wanted coffeee or breakfast and she wasn't responding. Patient was confused and was refusing to eat/drink. Patient just had a blank stare on her face. Patient did not take her daily medications. ROS unobtainable due to AMS. PMD: Dr. Villeda PMH: EtOH abuse, liver cirrhosis, hypertension, asthma, bronchitis, depression, anxiety, hepatitis C, diabetes, GI bleed, sepsis, seizure disorder, gastritis Meds: as per EMR Allergy: iodinated contrast PSH: bilateral tubal ligation, multiple paracentesis, EGD 03/05/16: non bleeding 10cm esophageal ulcer, portal HTN gastropathy, normal duodenum; EGD 02/12/15 esophageal varices and portal HTN gastropathy Hosp: patient was last discharged from in March 2016 after being admitted for GI bleed. FH: Father and brother have hepatitis hepatitis. Sister had an [facility] Social: patient was drinking 3 beers/day since she was in her teens; as per fiance patient stopped drinking. Patient used to smoke 1/2 ppd since her teens but as per fiance only smokes a couple of puffs now. Denies any travel, sickness , sick contacts. 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 Throughout Hospital Course: Patient was admitted for hepatic encephalopathy and dehydration. Patient was placed on IVF and rehdyrated. She was continue on lactulose and restarted on Rifaxin to decrease her levels of ammonia. Patient had a PICC line placed, once consented, to allow for transfusion of 1 unit of PRBCs due to anemia. Once patient was stabilized, she was discharged with a change in her medications and instructed to follow up with the clinic of [facility] or with our [facility]. Patient stated she understood the changes in her medications and agreed with the plan. This is a brief summary of the patient's hospital course. Please review EMR for complete record. Discharge Exam - Head Exam Head Exam: NORMAL INSPECTION, NORMOCEPHALIC - Eye Exam Eye Exam: Normal appearance - Respiratory Exam Respiratory Exam: Clear to PA & Lateral, NORMAL BREATHING PATTERN. absent: Decreased Breath Sounds, Wheezes - Cardiovascular Exam Cardiovascular Exam: REGULAR RHYTHM, RRR, +S1, +S2 - GI/Abdominal Exam GI & Abdominal Exam: Normal Bowel Sounds, Soft. absent: Diminished Bowel Sounds , Tenderness - Extremities Exam Extremities exam: normal inspection, pedal edema, tenderness - Neurological Exam Neurological exam: Alert, Oriented x3 - Skin Skin Exam: Dry, Intact, Normal Color, Warm Discharge Plan - Discharge Medications Prescriptions: Folic Acid 1 mg PO DAILY #30 Furosemide [Lasix] 20 mg PO DAILY #30 tab Lactulose [Enulose] 30 gm PO BID #60 Multivitamins [Hexavitamin] 1 tab PO DAILY #30 tab Pantoprazole Sodium [Protonix] 40 mg PO DAILY #30 Propranolol [Inderal] 5 mg PO TID #90 tab Pyridoxine [Vitamin B6] 1 tab PO DAILY #30 Spironolactone [Aldactone] 25 mg PO DAILY #30 tab Thiamine HCl [Vitamin B-1] 50 mg PO DAILY #30 - Follow Up Plan Condition: STABLE Disposition: HOME/ ROUTINE Instructions: Propranolol (By mouth), Spironolactone (By mouth), Furosemide ( By mouth), Pyridoxine (Vitamin B-6) (By mouth), Thiamine (Vitamin B-1) (By mouth ), Folic Acid (By mouth), Multivitamins, Adult Formula (By mouth), Lactulose ( By mouth), Pantoprazole (By mouth), Hepatic Encephalopathy (DC) Additional Instructions: Patient is to continue current medications as listed below: LASIX 20mg BY MOUTH DAILY, ALDACTONE 25mg by MOUTH DAILY, PROPONANOL 5mg THREE TIMES A DAY BY MOUTH , LACTULOSE 30mg by mouth TWICE A DAY and the other medications the patient was prescribed. She is strongly encouraged to follow up with the Liver clinic in [facility]. She can also follow up with our [facility] here at [facility] ( [facility]). Patient encouraged to return if her symptoms return or worsen. El paciente debe continuar los medicamentos actuales ena se indica a continuaci n: LASIX 20mg POR BOCA DIARIA, ALDACTONA 25mg por BOCA DIARIO, PROPONANOL 5mg AC VECES UN DA POR BOCA, LACTULOSA 30mg por va oral DOS VECES por da y los otros medicamentos que le prescribieron. Se recomienda encarecidamente que siga con la clnica [facility]ica [place] Giselle tambin puede hacer un seguimiento con nuest[facility] ([facility] El paciente es alentado a regresar si ce sntomas regresan o empeoran. Referrals: Lisa Worthington MD [Staff Provider] - <James Garcia - Last Filed: 10/08/16 14:24> Provider - Provider Date of Admission: 10/05/16 21:12 Attending physician: Glynn Soto MD Hospital Course - Lab Results Lab Results: Micro Results 10/06/16 15:46 Naris MRSA Culture - Final MRSA NOT DETECTED 10/05/16 22:37 Naris MRSA Culture (Admit) - Final MRSA NOT DETECTED Most Recent Lab Values WBC 5.7 K/uL (4.8-10.8) 10/08/16 07:36 RBC 2.44 Mil/uL (3.80-5.20) L 10/08/16 07:36 Hgb 9.4 g/dL (11.0-16.0) L 10/08/16 07:36 Hct 26.4 % (34.0-47.0) L 10/08/16 07:36 MCV 108.2 fL (81.0-99.0) H 10/08/16 07:36 MCH 38.5 pg (27.0-31.0) H 10/08/16 07:36 MCHC 35.6 g/dL (33.0-37.0) 10/08/16 07:36 RDW 24.6 % (11.5-14.5) H 10/08/16 07:36 Plt Count 74 K/uL (130-400) L 10/08/16 07:36 MPV 8.0 fL (7.2-11.7) 10/08/16 07:36 Neut % (Auto) 46.5 % (50.0-75.0) L 10/08/16 07:36 Lymph % (Auto) 36.4 % (20.0-40.0) 10/08/16 07:36 [place] % (Auto) 15.4 % (0.0-10.0) H 10/08/16 07:36 Eos % (Auto) 0.8 % (0.0-4.0) 10/08/16 07:36 Baso % (Auto) 0.9 % (0.0-2.0) 10/08/16 07:36 Neut # 2.6 K/uL (1.8-7.0) 10/08/16 07:36 Lymph # 2.1 K/uL (1.0-4.3) 10/08/16 07:36 [place] # 0.9 K/uL (0.0-0.8) H 10/08/16 07:36 Eos # 0.0 K/uL (0.0-0.7) 10/08/16 07:36 Baso # 0.1 K/uL (0.0-0.2) 10/08/16 07:36 Differential Comment 10/07/16 07:18 PT 16.7 SECONDS (9.7-12.2) H 10/05/16 18:37 INR 1.47 (0.92-1.08) H 10/05/16 18:37 APTT 30 SECONDS (21-34) 10/05/16 18:37 Puncture Site Lba 10/05/16 20:20 pCO2 22 mm/Hg (35-45) L 10/05/16 20:20 pO2 131 mm/Hg (80-100) H 10/05/16 20:20 HCO3 20.6 mmol/L (21-28) L 10/05/16 20:20 ABG pH 7.47 (7.35-7.45) H 10/05/16 20:20 ABG Total CO2 16.7 mmol/L (22-28) L 10/05/16 20:20 ABG O2 Saturation 100.5 % (95-98) H 10/05/16 20:20 ABG Base Excess -5.6 mmol/L (-2.0-3.0) L 10/05/16 20:20 Robert Test Pos 10/05/16 20:20 ABG Potassium 3.0 mmol/L (3.6-5.2) L 10/05/16 20:20 A-a O2 Difference -9.0 mm/Hg 10/05/16 20:20 Respiratory Index -0.1 10/05/16 20:20 Sodium 149.0 mmol/l (132-148) H 10/05/16 20:20 Chloride 120.0 mmol/L (98-107) H 10/05/16 20:20 Glucose 76 mg/dl (65-105) 10/05/16 20:20 Lactate 1.2 mmol/L (0.7-2.1) 10/05/16 20:20 FiO2 21.0 % 10/05/16 20:20 Sodium 134 mmol/L (132-148) 10/08/16 07:36 Potassium 4.2 mmol/L (3.6-5.2) 10/08/16 07:36 Chloride 109 mmol/L (98-107) H 10/08/16 07:36 Carbon Dioxide 16 mmol/L (22-30) L 10/08/16 07:36 Anion Gap 13 (10-20) 10/08/16 07:36 BUN 15 mg/dL (7-17) 10/08/16 07:36 Creatinine 0.9 MG/DL (0.7-1.2) 10/08/16 07:36 Est GFR ( Amer) > 60 10/08/16 07:36 Est GFR (Non-Af Amer) > 60 10/08/16 07:36 POC Glucose (mg/dL) 106 mg/dL (65-110) 10/07/16 21:34 Random Glucose 104 mg/dL (65-105) 10/08/16 07:36 Calcium 8.1 mg/dl (8.6-10.4) L 10/08/16 07:36 Phosphorus 3.1 mg/dL (2.5-4.5) 10/08/16 07:36 Magnesium 1.7 mg/dL (1.6-2.3) 10/08/16 07:36 Total Bilirubin 10.4 mg/dL (0.2-1.3) H 10/08/16 07:36 AST 95 U/L (14-36) H 10/08/16 07:36 ALT 71 U/L (9-52) H 10/08/16 07:36 Alkaline Phosphatase 162 U/L (38-126) H D 10/08/16 07:36 Ammonia 64 umol/L (9-33) H D 10/06/16 06:30 Troponin I 0.0130 ng/mL (0.00-0.120) 10/05/16 18:37 Total Protein 6.1 g/dL (6.3-8.3) L 10/08/16 07:36 Albumin 2.5 g/dL (3.5-5.0) L 10/08/16 07:36 Globulin 3.6 gm/dL (2.2-3.9) 10/08/16 07:36 Albumin/Globulin Ratio 0.7 (1.0-2.1) L 10/08/16 07:36 Arterial Blood Potassium 3.0 mmol/L (3.6-5.2) L 10/05/16 20:20 Urine Color [place] (YELLOW) 10/05/16 23:47 Urine Appearance Cancelled 10/05/16 19:26 Urine Clarity Clear (Clear) 10/05/16 23:47 Urine pH 6.0 (5.0-8.0) 10/05/16 23:47 Ur Specific [place] 1.017 (1.003-1.030) 10/05/16 23:47 Urine Protein Negative mg/dL (NEGATIVE) 10/05/16 23:47 Urine Glucose (UA) Normal mg/dL (Normal) 10/05/16 23:47 Urine Ketones Negative mg/dL (NEGATIVE) 10/05/16 23:47 Urine Blood Negative (NEGATIVE) 10/05/16 23:47 Urine Nitrate Negative (NEGATIVE) 10/05/16 23:47 Urine Bilirubin Negative (NEGATIVE) 10/05/16 23:47 Urine Urobilinogen 4.0 mg/dL (0.2-1.0) H 10/05/16 23:47 Ur Leukocyte Esterase Neg Ashley/uL (Negative) 10/05/16 23:47 Urine WBC (Auto) < 1 /hpf (0-5) 10/05/16 23:47 Urine RBC (Auto) < 1 /hpf (0-3) 10/05/16 23:47 Ur Squamous Epith Cells < 1 /hpf (0-5) 10/05/16 23:47 Urine Bacteria Rare (<OCC) 10/05/16 23:47 Urine HCG, Qual Negative (NEGATIVE) 10/06/16 04:02 Urine Opiates Screen Negative (NEGATIVE) 10/05/16 20:15 Urine Methadone Screen Negative (NEGATIVE) 10/05/16 20:15 Ur Barbiturates Screen Negative (NEGATIVE) 10/05/16 20:15 Ur Phencyclidine Scrn Negative (NEGATIVE) 10/05/16 20:15 Ur Amphetamines Screen Negative (NEGATIVE) 10/05/16 20:15 U Benzodiazepines Scrn Negative (NEGATIVE) 10/05/16 20:15 U Oth Cocaine Metabols Negative (NEGATIVE) 10/05/16 20:15 U Cannabinoids Screen Negative (NEGATIVE) 10/05/16 20:15 Alcohol, Quantitative < 10 mg/dl (0-10) 10/05/16 18:37 Blood Type B POSITIVE 10/07/16 11:49 Antibody Screen Negative 10/07/16 11:49 Attending/Attestation - Attestation I have personally seen and examined this patient.: Yes I have fully participated in the care of the patient.: Yes I have reviewed all pertinent clinical information, including history, physical exam and plan: Yes Notes (Text): Medical attending: Patient was seen and examined by me, agrees the above note by medical coding instructor. We saw the patient together. The patient was alert and orientated 3, she reported that she is feeling well, she tolerated her regular diet last night as well. She reports going to the bathroom normally as well. As documented before, this patient has a history of extensive liver cirrhosis secondary to alcohol complications, as well as a history of hepatitis C as well When she was admitted she was very lethargic, dry appearance, and some altered mental status according to the family. She is getting intravenous fluids and that this helped significantly. The patient says that she feels a lot better with intravenous fluids. I explained to her that it may be that she is taking less oral fluids for several days on top of the very large amounts of Lasix, large amounts of Aldactone, large amounts of lactulose she was onthat she made herself extremely dehydrated. This seems to be reflected in her lab work as well. Today she was able to walk, tolerating her own diet, the patient is well aware that he needs to follow-up with a much larger medical center such as [place] or [facility] where eventually she could have further care by GI Thank you very much James Garcia 10/08/16 14:21
[2016-10-08] MEDS: Multiple Vitamins Tab PO SCH (10:39)
[2016-10-08] MEDS: Pantoprazole 40 mg EC Tab PO SCH (10:39)
[2016-10-08] MEDS ORDERED: Pneumococcal 23-Valent Vaccine IM ONE (11:15)
== END 2016-10-08 12:18 | disposition home or self-care (01) | DRG 202 ==
LOC: C.ER 17:03 → C.9I 21:12 → C.3T 10-06 17:13
PROVIDERS: ADMIT Internal Medicine; ATTEND Internal Medicine
PROC: 02HV33Z Insertion of Infusion Device into Superior Vena Cava, Percutaneous Approach (ICD-10-PCS; principal; 2016-10-07)
PROC: B548ZZA Ultrasonography of Superior Vena Cava, Guidance (ICD-10-PCS; 2016-10-07)
PROC: 30233N1 Transfusion of Nonautologous Red Blood Cells into Peripheral Vein, Percutaneous Approach (ICD-10-PCS; 2016-10-07)
DX: K70.40 Alcoholic hepatic failure without coma (principal); K70.30 Alcoholic cirrhosis of liver without ascites; E11.22 Type 2 diabetes mellitus with diabetic chronic kidney disease; E86.0 Dehydration; B18.2 Chronic viral hepatitis C; J44.9 Chronic obstructive pulmonary disease, unspecified; N18.9 Chronic kidney disease, unspecified; I12.9 Hypertensive chronic kidney disease with stage 1 through stage 4 chronic kidney disease, or unspecified chronic kidney disease; D63.8 Anemia in other chronic diseases classified elsewhere; F10.20 Alcohol dependence, uncomplicated; J45.909 Unspecified asthma, uncomplicated; F41.9 Anxiety disorder, unspecified; F32.9 Major depressive disorder, single episode, unspecified; G40.909 Epilepsy, unspecified, not intractable, without status epilepticus; F17.210 Nicotine dependence, cigarettes, uncomplicated; Z79.4 Long term (current) use of insulin

== ENCOUNTER 2016-10-14 12:16 | Inpatient (IN) | payer MEDICAID ==
[2016-10-14 12:16] VITALS: BMI 22.3
[2016-10-14] MEDS ORDERED: Sodium Chloride 0.9% 1,000 ML IV ONE (12:57)
--- NOTE | 2016-10-14 13:14 | C.PDOC ---
History Of Present Illness 51 y/o female with history of cirrhosis, hepatitis, presents to ED with c/o rectal bleeding. Patient was admitted recently for the same complaint and had a blood transfusion. Patient reports she had a lot of rectal bleeding last night which prompted visit. Otherwise, denies dizziness, lightheadedness, chest pain, nausea, vomiting, or other associated symptoms. Time Seen by Provider: 10/14/16 12:33 Chief Complaint (Nursing): GI Problem History Per: Patient History/Exam Limitations: no limitations Onset/Duration Of Symptoms: Days Current Symptoms Are (Timing): Still Present Number Of Bleeding Episodes: Unknown Amount of Blood Loss: Medium Associated Symptoms: denies: Nausea, Vomiting, Diarrhea, Hematemesis, Lightheadedness Recent travel outside of the [place]: No Past Medical History Reviewed: Historical Data, Nursing Documentation, Vital Signs Vital Signs: Last Vital Signs Temp 97.9 F 10/14/16 12:22 Pulse 84 10/14/16 12:22 Resp 22 10/14/16 12:22 BP 124/84 10/14/16 12:22 Pulse Ox 99 10/14/16 16:16 - Medical History PMH: Anemia, Anxiety, Asthma, Bronchitis, COPD (ASTHMA), Depression, Diabetes ( type 2), Hepatitis (C), HTN, Pancreatitis, Peripheral Edema, Chronic Kidney Disease, Seizures - [facility] Procedures ALCOHOL DETOXIFICATION (01/20/13) DRAINAGE OF PERITONEAL CAVITY WITH DRAIN DEV, PERC APPROACH (02/11/15) DRAINAGE OF PERITONEAL CAVITY, PERCUTANEOUS APPROACH (03/04/16) DRAINAGE OF PERITONEAL CAVITY, PERCUTANEOUS APPROACH, DIAGN (03/04/16) EXCISION OF STOMACH, ENDO, DIAGN (09/08/16) FLUOROSCOPY OF SUPERIOR VENA CAVA, GUIDANCE (09/08/16) INFLUENZA VACCINATION (06/25/14) INSERTION OF INFUSION DEV INTO SUP VENA CAVA, PERC APPROACH (10/05/16) INSPECTION OF UPPER INTESTINAL TRACT, ENDO (03/04/16) OCCLUSION ESOPHAGEAL VEIN W EXTRALUM DEV, PERC ENDO (02/11/15) OTHER ENDOSCOPY OF SM INTEST (06/25/14) TRANSFUSE NONAUT FROZEN PLASMA IN PERIPH VEIN, PERC (09/08/16) TRANSFUSE NONAUT RED BLOOD CELLS IN PERIPH VEIN, PERC (10/05/16) ULTRASONOGRAPHY OF SUPERIOR VENA CAVA, GUIDANCE (10/05/16) VACCINATION NEC (06/25/14) Family History: States: Unknown Family Hx - Social History Hx Tobacco Use: Yes (light smoker) Hx Alcohol Use: Yes Hx Substance Use: No - Immunization History Hx Tetanus Toxoid Vaccination: No Hx Influenza Vaccination: No Hx Pneumococcal Vaccination: No Review Of Systems Except As Marked, All Systems Reviewed And Found Negative. Constitutional: Negative for: Fever, Chills Respiratory: Negative for: Cough, Wheezing Gastrointestinal: Positive for: Abdominal Pain, Hematochezia. Negative for: Nausea, Vomiting, Diarrhea Skin: Negative for: Rash Neurological: Negative for: Headache Physical Exam - Physical Exam Appears: Non-toxic, No Acute Distress Skin: Warm, Dry Head: Atraumatic, Normacephalic Oral Mucosa: Moist Chest: Symmetrical Cardiovascular: Rhythm Regular Respiratory: Normal Breath Sounds, No Rales, No Rhonchi, No Wheezing Gastrointestinal/Abdominal: Soft, Tenderness (mild diffuse), Distention, No Guarding, No Rebound Rectal: Heme Negative, No Blood Streaked Stool, Other (no blood in rectal vault) Back: Normal Inspection, No CVA Tenderness Extremity: Normal ROM, Capillary Refill (< 2 sec. ) Neurological/Psych: Oriented x3, Normal Speech, Normal Cognition ED Course And Treatment - Laboratory Results Result Diagrams: 10/14/16 13:10 10/14/16 13:10 Lab Interpretation: No Acute Changes ECG: Interpreted By Me ECG Rhythm: Sinus Rhythm ECG Interpretation: No Acute Changes Rate From EC O2 Sat by Pulse Oximetry: 99 (RA) Pulse Ox Interpretation: Normal - Radiology CXR: Viewed By Me, Read By Radiologist CXR Interpretation: Yes: No Acute Disease Progress Note: CxR, bloodwork, IVFs ordered. Chest x-ray negative for acute disease. Reassessment Condition: Unchanged - Physician Consult Information Physician Contacted: Massimo Correia Outcome Of Conversation: admit Disposition Discussed With : Massimo Correia Doctor Will See Patient In The: Hospital - Disposition Disposition: HOSPITALIZED Disposition Time: 15:40 Condition: STABLE - POA Present On Arrival: None - Clinical Impression Clinical Impression: Electrolyte abnormality, Abdominal pain, Cirrhosis of liver with ascites, Liver failure, Gastrointestinal bleed, Liver function abnormality, Cirrhosis of liver - PA / DENTAL RECEPTIONIST / Resident Statement MD/DO has reviewed & agrees with the documentation as recorded. - Scribe Statement The provider has reviewed the documentation as recorded by the Dom Blair All medical record entries made by the Dom were at my direction and personally dictated by me. I have reviewed the chart and agree that the record accurately reflects my personal performance of the history, physical exam, medical decision making, and the department course for this patient. I have also personally directed, reviewed, and agree with the discharge instructions and disposition. Decision To Admit - Pt Status Changed To: Hospital Disposition Of: Inpatient - Admit Certification Admit to Inpatient:: After my assessment, the patient will require hospitalization for at least two midnights. This is because of the severity of symptoms shown, intensity of services needed, and/or the medical risk in this patient being treated as an outpatient. - InPatient: Physician Admission Certification: I certify that this patient requires 2 or more midnights of care for the following reason:: GI Bleeding. Liver Cirrhosis. Pancreatitis - . Bed Request Type: Regular Admitting Physician: Massimo Correia Patient Diagnosis: Electrolyte abnormality, Abdominal pain, Cirrhosis of liver with ascites, Liver failure, Gastrointestinal bleed
[2016-10-14 13:16] LABS: BASO # 0.1 K/uL (0.0-0.2); BASO % 1.1 % (0.0-2.0); EOS # 0.1 K/uL (0.0-0.7); EOS % 1.3 % (0.0-4.0); HEMATOCRIT 30.3 % (34.0-47.0); LYMPH # 1.5 K/uL (1.0-4.3); LYMPH % 22.5 % (20.0-40.0); MEAN CELL VOLUME 108.4 fL (81.0-99.0); MEAN CORPUSCULAR HEMOGLOBIN 37.3 pg (27.0-31.0); MEAN CORPUSCULAR HGB CONC 34.4 g/dL (33.0-37.0); MEAN PLATELET VOLUME 7.3 fL (7.2-11.7); MONO # 0.8 K/uL (0.0-0.8); MONO % 12.9 % (0.0-10.0); RED CELL DISTRIBUTION WIDTH 21.9 % (11.5-14.5); WHITE BLOOD COUNT 6.5 K/uL (4.8-10.8)
[2016-10-14 13:19] LABS: RBC URINE 10 /hpf (0-3); URINE BACTERIA RARE (<OCC); URINE BILIRUBIN 1+ (NEGATIVE); URINE BLOOD 1+ (NEGATIVE); URINE COLOR Amber (YELLOW); URINE GLUCOSE (UA) NORMAL (Normal); URINE HYALINE CAST 0-2 /lpf (0-2); URINE KETONE NEGATIVE (NEGATIVE); URINE LEUKOCYTE ESTERASE 3+ Leu/uL (Negative); URINE PROTEIN NEGATIVE (NEGATIVE); WBC URINE 38 /hpf (0-5)
[2016-10-14 13:21] LABS: INR 1.6
--- NOTE | 2016-10-14 13:26 | RAD ---
PROCEDURE: CHEST RADIOGRAPH, 1 VIEW HISTORY: Shortness of breath COMPARISON: 10/05/2016. FINDINGS: LUNGS: The lungs are clear. PLEURA: No pneumothorax or pleural fluid seen. CARDIOVASCULAR: Normal. OSSEOUS STRUCTURES: No significant abnormalities. VISUALIZED UPPER ABDOMEN: Normal. OTHER FINDINGS: None. IMPRESSION: No active pulmonary disease.
[2016-10-14 15:04] LABS: CHLORIDE 101 mmol/L (98-107); SODIUM 133 mmol/L (132-148)
[2016-10-14 15:06] LABS: ALB/GLOB RATIO 0.6 (1.0-2.1); ALKALINE PHOSPHATASE 171 U/L (38-126); AST/SGOT 142 U/L (14-36); BILIRUBIN,TOTAL 9.7 mg/dL (0.2-1.3); BLOOD UREA NITROGEN 18 mg/dL (7-17); CARBON DIOXIDE 20 mmol/L (22-30); GFR AFRICAN-AMERICAN > 60; TOTAL PROTEIN 6.7 g/dL (6.3-8.3)
[2016-10-14 15:07] LABS: ALT/SGPT 68 U/L (9-52); GLUCOSE,RANDOM 117 mg/dL (65-105)
[2016-10-14 15:12] LABS: POTASSIUM 2.7 mmol/L (3.6-5.2)
[2016-10-14] MEDS ORDERED: Sodium Chloride 0.9% 1,000 ML ONE (16:25)
--- NOTE | 2016-10-14 16:44 | CP.PCM.HP ---
History of Present Illness - History of Present Illness History of Present Illness: CC: Rectal Bleeding HPI: Patient is a 51 year old female with a history of upper GI bleed, esophageal varices, Hepatitis C, ETOH abuse, and asthma. She is here because she started to noticed that she was bleeding from her rectum last night. She says that after she was discharged she noticed that she was having a small amount of blood with each bowel movement. She then said that last night she had a large bloody bowel movement with dark red blood and some clots. She had a similar episode this morning as well. She thought it was hemmroids initially however she came to the hospital with her . She is is also complaining of chills but no fever, abdominal distention, abdominal pain, productive cough, chest tightness, and wheezing. She says her primary doctor is trying to her over to a hospital in [place] for further care of her liver. She was last admitted for an upper GI bleed last month and had a EGD as well. PMD: Dr. Villeda PMH: EtOH abuse, liver cirrhosis, asthma, hepatitis C, diabetes, GI bleed, esophageal varices, external hemorrhoids. Allergy: iodinated contrast PSH: bilateral tubal ligation, multiple paracentesis, EGD 09/2016 upper GI bleed 03/05/16: non bleeding 10cm esophageal ulcer, portal HTN gastropathy, normal duodenum; EGD 02/12/15 esophageal varices and portal HTN gastropathy Hosp: patient was last discharged from in March 2016 after being admitted for GI bleed. FH: Father and brother have hepatitis hepatitis. Sister had an VT Social: patient was drinking 3 beers/day since she was in her teens; as per fiance patient stopped drinking. Patient used to smoke 1/2 ppd since her teens but as per fiance only smokes a couple of puffs now. Denies any travel, sickness , sick contacts. 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 Present on Admission - Present on Admission Any Indicators Present on Admission: No History of DVT/PE: No History of Uncontrolled Diabetes: No Urinary Catheter: No Decubitus Ulcer Present: No History Surgical Site Infection Following: None Review of Systems - Review of Systems All systems: reviewed and no additional remarkable complaints except - Constitutional Constitutional: Chills. absent: Excessive Sweating, Fever, Weakness - EENT Eyes: Blurred Vision Ears: absent: Dizziness - Cardiovascular Cardiovascular: absent: Chest Pain, Palpitations - Respiratory Respiratory: Cough, Wheezing. absent: Dyspnea - Gastrointestinal Gastrointestinal: Abdominal Pain, Hematochezia. absent: Nausea, Vomiting - Genitourinary Genitourinary: Difficulty Urinating. absent: Dysuria, Hematuria - Musculoskeletal Musculoskeletal: Back Pain - Integumentary Integumentary: Swelling - Neurological Neurological: absent: Dizziness, Weakness - Psychiatric Psychiatric: absent: Anxiety - Endocrine Endocrine: Fatigue. absent: Palpitations Past Patient History - Infectious Disease Hx of Infectious Diseases: None - Tetanus Immunizations Tetanus Immunization: Unknown - Past Medical History & Family History Past Medical History?: Yes - Past Social History Smoking Status: Light Smoker < 10 Cigarettes Daily - CARDIAC Hx Hypertension: Yes Hx Peripheral Edema: Yes - PULMONARY Hx Asthma: Yes Hx Bronchitis: Yes Hx Chronic Obstructive Pulmonary Disease (COPD): Yes (ASTHMA) - NEUROLOGICAL Hx Seizures: Yes - HEENT Hx HEENT Problems: Yes Hx Epistaxis: Yes - RENAL Hx Chronic Kidney Disease: Yes - ENDOCRINE/METABOLIC Hx Diabetes Mellitus Type 2: Yes - HEMATOLOGICAL/ONCOLOGICAL Hx Anemia: Yes - INTEGUMENTARY Hx Dermatological Problems: No - MUSCULOSKELETAL/RHEUMATOLOGICAL Hx Falls: Yes Hx Unsteady Gait: Yes - GASTROINTESTINAL Hx Pancreatitis: Yes - GENITOURINARY/GYNECOLOGICAL Hx Genitourinary Disorders: Yes Hx Incontinence: Yes Hx Urinary Tract Infection: Yes - PSYCHIATRIC Hx Anxiety: Yes Hx Depression: Yes Hx Substance Use: No - SURGICAL HISTORY Hx Surgeries: Yes (ectopic ) Hx Section: Yes (x1) - ANESTHESIA Hx Anesthesia: Yes Hx Anesthesia Reactions: No Meds Allergies/Adverse Reactions: Allergies Allergy/AdvReac Type Severity Reaction Status Date / Time Iodinated Contrast Media - Allergy Verified 10/14/16 12:19 Oral and Physical Exam - Constitutional Appears: Non-toxic, No Acute Distress, Chronically Ill - Head Exam Head Exam: NORMAL INSPECTION - Eye Exam Eye Exam: Normal appearance, PERRL, Scleral icterus. absent: Nystagmus Pupil Exam: NORMAL ACCOMODATION - ENT Exam ENT Exam: Mucous Membranes Moist, Normal Exam - Neck Exam Neck exam: Positive for: Normal Inspection - Respiratory Exam Respiratory Exam: Decreased Breath Sounds, Clear to Auscultation Bilateral, Wheezes. absent: Rales, Rhonchi - Cardiovascular Exam Cardiovascular Exam: REGULAR RHYTHM, RRR, +S1, +S2, Systolic Murmur. absent: Gallop, Rubs - GI/Abdominal Exam GI & Abdominal Exam: Distended, Normal Bowel Sounds, Tenderness. absent: Guarding, Rebound, Soft - Rectal Exam Rectal Exam: Hemorrhoids Additional comments: red and inflamed, no fecal or sasha blood - Extremities Exam Extremities exam: Positive for: normal inspection. Negative for: pedal edema - Back Exam Back exam: NORMAL INSPECTION - Neurological Exam Neurological exam: Alert, Oriented x3 - Psychiatric Exam Psychiatric exam: Normal Affect, Normal Mood - Skin Skin Exam: Dry, Warm Additional comments: Juandiced Results - Vital Signs Recent Vital Signs: Last Vital Signs Temp 97.9 F 10/14/16 12:22 Pulse 84 10/14/16 12:22 Resp 22 10/14/16 12:22 BP 124/84 10/14/16 12:22 Pulse Ox 99 10/14/16 16:16 - Labs Result Diagrams: 10/14/16 13:10 10/14/16 13:10 Assessment & Plan (1) Gastrointestinal bleed Assessment and Plan: Upper vs lower GI bleed, her hbg is a little over 10 which is actually a little above her baseline. She has macrocytic anemia from a history of etoh abuse. She had a EGD last month, so we will consult GI Dr. Corral's group. Will keep her NPO, started IV fluids. Also will give IV protonix as well. Per chart review she had an EGD last month which showed multiple esophageal varices which had been banded. Patient admitted to Tele/inpatient because of the GI bleed. Will start PO medication tomorrow. Status: Acute (2) Hypokalemia Assessment and Plan: K is 2.7, most likely from the lactulose and Lasix use, she is given 20meq of IV K, will give 40 meq more in IV fluids and another 20meq IV of K as well, re check K at around 2330. EKG reviewed showed diminished T waves with no prolong [place] intervals or QRS complexes. Status: Acute (3) Anemia Assessment and Plan: Hbg is 10.3, which is right above her baseline, follow cbc in the am. Status: Acute (4) Elevated lipase Assessment and Plan: Lipase at 600, most likely chronic from etoh abuse history. Status: Acute (5) Hyperbilirubinemia Assessment and Plan: from history of liver cirrhosis from hepatatis C and ETOH abuse history. Status: Acute (6) Thrombocytopenia Assessment and Plan: secondary to ETOH abuse history, plat[place] cound is again around her baseline. Status: Chronic (7) Serum ammonia increased Assessment and Plan: restart her lactulose tomorrow. Status: Acute (8) History of hepatitis C Assessment and Plan: Dr. Corral has been consulted, is chronic though. Status: Chronic (9) Asthma Assessment and Plan: Duoneb Q6H prn Status: Chronic (10) Diabetes mellitus Assessment and Plan: accu checks with sliding scale insulin as needed with low protocol. Status: Chronic (11) Prophylactic measure Assessment and Plan: SCDs, hold VTE due to active hemmorage and thrombocytopenia Protonix 40mg IV Status: Acute
[2016-10-14] MEDS ORDERED: Potassium Chl 40 mEq in D5-1/2 1,000 ML IV SCH (17:00)
[2016-10-14] MEDS ORDERED: SODIUM CHLORIDE 0.45% IV SCH (17:34)
[2016-10-14] MEDS ORDERED: POTASSIUM CHLORIDE IV SCH (17:34)
[2016-10-14] MEDS ORDERED: Albuterol-Ipratrop 3 mg / 0.5 (3 ml) UD INH PRN (17:45)
[2016-10-14 17:51] LABS: MAGNESIUM 1.3 mg/dL (1.6-2.3)
[2016-10-14] MEDS: Potassium Chloride 40 MEQ in Sodium Chloride 0.45% 1,000 ML IV SCH (21:33)
[2016-10-14] MEDS: (Novolin R) Insulin Human Regular 100 units/ml vial SC SCH (22:56)
[2016-10-15 02:23] LABS: CHLORIDE 106 mmol/L (98-107); POTASSIUM 3.3 mmol/L (3.6-5.2); SODIUM 134 mmol/L (132-148)
[2016-10-15 02:26] LABS: BLOOD UREA NITROGEN 14 mg/dL (7-17); CARBON DIOXIDE 20 mmol/L (22-30); GFR AFRICAN-AMERICAN > 60
[2016-10-15 02:27] LABS: CALCIUM 7.3 mg/dl (8.6-10.4); GLUCOSE,RANDOM 83 mg/dL (65-105)
[2016-10-15] MEDS ORDERED: Potassium Chloride 20 mEq ER Tab PO ONE ×2 (02:52→10:19)
[2016-10-15] MEDS: Potassium Chloride 40 MEQ in Sodium Chloride 0.45% 1,000 ML IV SCH (05:44)
[2016-10-15] MEDS ORDERED: Potassium Chloride 40 MEQ in Sodium Chloride 0.45% 1,000 ML IV SCH (06:59)
[2016-10-15 07:35] LABS: BASO % 0.7 % (0.0-2.0); EOS % 0.9 % (0.0-4.0); HEMATOCRIT 24.8 % (34.0-47.0); LYMPH # 1.6 K/uL (1.0-4.3); LYMPH % 35.5 % (20.0-40.0); MEAN CELL VOLUME 108.7 fL (81.0-99.0); MEAN CORPUSCULAR HEMOGLOBIN 37.4 pg (27.0-31.0); MEAN CORPUSCULAR HGB CONC 34.4 g/dL (33.0-37.0); MEAN PLATELET VOLUME 7.2 fL (7.2-11.7); MONO # 0.5 K/uL (0.0-0.8); NRBC % 0.3 % (0.0-2.0); RED CELL DISTRIBUTION WIDTH 22.1 % (11.5-14.5); WHITE BLOOD COUNT 4.6 K/uL (4.8-10.8)
[2016-10-15 07:45] LABS: CHLORIDE 107 mmol/L (98-107); POTASSIUM 3.6 mmol/L (3.6-5.2); SODIUM 135 mmol/L (132-148)
[2016-10-15 07:47] LABS: ALB/GLOB RATIO 0.6 (1.0-2.1); ALKALINE PHOSPHATASE 151 U/L (38-126); AST/SGOT 101 U/L (14-36); BILIRUBIN,TOTAL 6.5 mg/dL (0.2-1.3); CARBON DIOXIDE 22 mmol/L (22-30); GFR AFRICAN-AMERICAN > 60; TOTAL PROTEIN 5.3 g/dL (6.3-8.3)
[2016-10-15 07:48] LABS: ALT/SGPT 57 U/L (9-52); BLOOD UREA NITROGEN 14 mg/dL (7-17); GLUCOSE,RANDOM 76 mg/dL (65-105); PHOSPHOROUS 2.7 mg/dL (2.5-4.5)
[2016-10-15 07:49] LABS: CALCIUM 7.4 mg/dl (8.6-10.4); MAGNESIUM 1.5 mg/dL (1.6-2.3)
[2016-10-15] MEDS: (Novolin R) Insulin Human Regular 100 units/ml vial SC SCH ×4 (08:45→21:35)
[2016-10-15] MEDS: Multiple Vitamins Tab PO SCH (09:50)
--- NOTE | 2016-10-15 10:14 | CP.PCM.CON ---
<Srinivas Lawson - Last Filed: 10/15/16 10:32> History of Present Illness - History of Present Illness History of Present Illness: PGY4 GI Fellow Consult Note Patient is a 51yo female with PMhx significant for decompensated cirrhosis ( prior GI bleeding, esophageal varices, portal hypertension, ascites, HE) 2/2 EtOH abuse (last drink 02/2016), HCV (GT 4a/4c/4d VL 1623) who presented to the ED with rectal bleeding. The patient is a very poor historian. The patient has not been adherent to all of her outpatient therapy as prescribed and only obtained Lactulose a day prior to admission per her account. Admits that in the past 2 weeks she has suffered with constipation, passing hard stool every few days. In the two days leading up to admission, she had passed very hard stool after significant pushing/straining and noted bright red blood per rectum. She denies feeling dizzy, lightheaded or having had any rectal pain. She believes she has hemorrhoids and did not use any medications to treat her constipation or hemorrhoids. She has never had a colonoscopy. PMHx: Decompensated EtOH cirrhosis as described in HPI, EtOH abuse (sober since 02/22), HTN, Asthma, HCV+ (Gt 4a/c/d), DM, anxiety, depression PSHx: Tubal ligation FHx: Father - HCV, Sister - [place] Social: Prior EtOH use, +tobacco use daily, denies illicit drugs Endo: EGD on 02/22/2015 - esophageal varices with 3 bands deployed EGD 02/2016 - esophageal ulcer EGD 09/2016 - small esophageal varices, prior ulcer healed Review of Systems - Constitutional Constitutional: absent: Anorexia, Chills, Fever, Weight Loss - EENT Eyes: absent: Change in Vision Nose/Mouth/Throat: absent: Sore Throat - Cardiovascular Cardiovascular: absent: Chest Pain, Dyspnea, Edema - Respiratory Respiratory: absent: Cough, Dyspnea, Excessive Mucous Production - Gastrointestinal Gastrointestinal: Constipation, Hematochezia. absent: Abdominal Pain, Bloating , Cramping, Diarrhea, Dysphagia, Excessive Flatus, Hematemesis, Melena, Nausea, Vomiting - Genitourinary Genitourinary: absent: Dysuria, Urinary Frequency, Urinary Urgency - Musculoskeletal Musculoskeletal: absent: Back Pain, Neck Pain - Integumentary Integumentary: absent: New Lesions, Rash - Neurological Neurological: absent: Dizziness, Numbness, Focal Weakness - Psychiatric Psychiatric: absent: Anxiety, Depression - Endocrine Endocrine: absent: Palpitations, Polyphagia, Polyuria - Hematologic/Lymphatic Hematologic: absent: Easy Bleeding, Easy Bruising, Lymphadenopathy Past Patient History - Infectious Disease Hx of Infectious Diseases: None - Tetanus Immunizations Tetanus Immunization: Unknown - Past Medical History & Family History Past Medical History?: Yes - Past Social History Smoking Status: Former Smoker - CARDIAC Hx Hypertension: Yes Hx Peripheral Edema: Yes - PULMONARY Hx Asthma: Yes Hx Bronchitis: Yes Hx Chronic Obstructive Pulmonary Disease (COPD): Yes (ASTHMA) - NEUROLOGICAL Hx Seizures: Yes - HEENT Hx HEENT Problems: Yes Hx Epistaxis: Yes - RENAL Hx Chronic Kidney Disease: Yes - ENDOCRINE/METABOLIC Hx Diabetes Mellitus Type 2: Yes - HEMATOLOGICAL/ONCOLOGICAL Hx Anemia: Yes - INTEGUMENTARY Hx Dermatological Problems: No - MUSCULOSKELETAL/RHEUMATOLOGICAL Hx Falls: Yes Hx Unsteady Gait: Yes - GASTROINTESTINAL Hx Pancreatitis: Yes - GENITOURINARY/GYNECOLOGICAL Hx Genitourinary Disorders: Yes Hx Incontinence: Yes Hx Urinary Tract Infection: Yes - PSYCHIATRIC Hx Anxiety: Yes Hx Depression: Yes Hx Substance Use: No - SURGICAL HISTORY Hx Surgeries: Yes (ectopic ) Hx Section: Yes (x1) - ANESTHESIA Hx Anesthesia: Yes Hx Anesthesia Reactions: No Meds Allergies/Adverse Reactions: Allergies Allergy/AdvReac Type Severity Reaction Status Date / Time Iodinated Contrast Media - Allergy Verified 10/14/16 12:19 Oral and - Medications Medications: Current Medications Albuterol/Ipratropium (Duoneb 3 Mg/0.5 Mg (3 Ml) Ud) 3 ml INH RQ6 PRN PRN Reason: Shortness of Breath Hydrocortisone (Anusol-Hc) 25 mg RC BID [facility] Stop: 10/28/16 18:01 Last Admin: 10/15/16 09:49 Dose: 25 mg Potassium Chloride 40 meq/ (Sodium Chloride) 1,020 mls @ 75 mls/hr IV .[id number] [facility] Insulin Human Regular (Novolin R) 0 unit SC ACHS [facility] PRN Reason: Protocol Last Admin: 10/15/16 08:45 Dose: Not Given Lactulose (Enulose) 30 gm PO BID [facility] Last Admin: 10/15/16 09:48 Dose: 30 gm Multivitamins (Hexavitamin) 1 tab PO DAILY [facility] Last Admin: 10/15/16 09:50 Dose: 1 tab Pantoprazole Sodium (Protonix Inj) 40 mg IVP DAILY [facility] Last Admin: 10/15/16 09:49 Dose: 40 mg Propranolol HCl (Inderal) 10 mg PO DAILY [facility] Last Admin: 10/15/16 09:49 Dose: 10 mg Rifaximin (Xifaxan) 550 mg PO BID [facility] Spironolactone (Aldactone) 100 mg PO DAILY [facility] Last Admin: 10/15/16 09:49 Dose: 100 mg Physical Exam - Constitutional Appears: Non-toxic, No Acute Distress - Eye Exam Eye Exam: EOMI, PERRL - ENT Exam ENT Exam: Mucous Membranes Moist - Respiratory Exam Respiratory Exam: Clear to Auscultation Bilateral. absent: Rales, Rhonchi, Wheezes - Cardiovascular Exam Cardiovascular Exam: RRR, +S1, +S2 - GI/Abdominal Exam GI & Abdominal Exam: Distended, Firm, Normal Bowel Sounds. absent: Guarding, Hernia, Rigid, Soft, Tenderness - Rectal Exam Rectal Exam: Hemorrhoids Additional comments: brown stool, no sasha blood - Extremities Exam Extremities exam: Positive for: normal inspection. Negative for: pedal edema - Neurological Exam Neurological exam: Alert, Oriented x3 - Psychiatric Exam Psychiatric exam: Normal Affect, Normal Mood - Skin Skin Exam: Dry, Warm Results - Vital Signs Recent Vital Signs: Last Vital Signs Temp 98.5 F 10/15/16 07:00 Pulse 79 10/15/16 07:00 Resp 20 10/15/16 07:00 BP 106/71 10/15/16 07:00 Pulse Ox 99 10/15/16 07:00 - Labs Result Diagrams: 10/15/16 05:47 10/15/16 05:47 Labs: Laboratory Results - last 24 hr 10/14/16 10/14/16 10/15/16 16:39 20:58 02:10 WBC RBC Hgb Hct MCV MCH MCHC RDW Plt Count MPV Neut % (Auto) Lymph % (Auto) [place] % (Auto) Eos % (Auto) Baso % (Auto) Neut # Lymph # [place] # Eos # Baso # Sodium 134 Potassium 3.3 L Chloride 106 Carbon Dioxide 20 L Anion Gap 11 BUN 14 Creatinine 0.8 Est GFR ( Amer) > 60 Est GFR (Non-Af Amer) > 60 POC Glucose (mg/dL) 96 Random Glucose 83 Calcium 7.3 L Phosphorus Magnesium Total Bilirubin AST ALT Alkaline Phosphatase Total Protein Albumin Globulin Albumin/Globulin Ratio Stool Occult Blood Negative 10/15/16 10/15/16 10/15/16 05:47 05:47 06:24 WBC 4.6 L RBC 2.28 L Hgb 8.5 L Hct 24.8 L MCV 108.7 H MCH 37.4 H MCHC 34.4 RDW 22.1 H Plt Count 71 L D MPV 7.2 Neut % (Auto) 51.9 Lymph % (Auto) 35.5 [place] % (Auto) 11.0 H Eos % (Auto) 0.9 Baso % (Auto) 0.7 Neut # 2.4 Lymph # 1.6 [place] # 0.5 Eos # 0.0 Baso # 0.0 Sodium 135 Potassium 3.6 Chloride 107 Carbon Dioxide 22 Anion Gap 9 L BUN 14 Creatinine 0.8 Est GFR ( Amer) > 60 Est GFR (Non-Af Amer) > 60 POC Glucose (mg/dL) 79 Random Glucose 76 Calcium 7.4 L Phosphorus 2.7 Magnesium 1.5 L Total Bilirubin 6.5 H AST 101 H D ALT 57 H Alkaline Phosphatase 151 H Total Protein 5.3 L Albumin 2.1 L Globulin 3.3 Albumin/Globulin Ratio 0.6 L Stool Occult Blood Assessment & Plan - Assessment and Plan (Free Text) Assessment: Patient is a 51yo female with PMhx significant for decompensated cirrhosis ( prior GI bleeding, esophageal varices, portal hypertension, ascites, HE) 2/2 EtOH abuse (last drink 02/2016), HCV (GT 4a/4c/4d VL 1623) who presented to the ED with rectal bleeding. -Rectal bleeding, constipation -Decompensated EtOH cirrhosis -HCV Genotype 4 -Abdominal distention, r/o ascites -Hypokalemia, likely a result of diuretic therapy -Small esophageal varices Plan: -Patient has had 3 rectal exams, no evidence of fresh blood and no witnessed melena - will monitor -Anusol RC BID for 2 weeks -Check abdominal U/S to R/O ascites given exam findings -Hold lasix in light of hypokalemia -Continue spironolactone at 100mg PO QD -Lactulose 30g PO BID -Xifanxin 550mg PO BID -D/C PPi which can increase risk of SBP in cirrhotic patients; recent EGD with no obvious lesions -Can likely D/C beta iona given small size of varices -Interestingly, 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 with elevated IgG and IgM levels may likely represent underlying autoimmune hepatitis - would recommend outpatient follow up with GI/hepatology *MELD-Na: 21 - Date & Time Date: 10/15/16 Time: 07:00 <Giancarlo Corral - Last Filed: 10/15/16 18:07> Meds - Medications Medications: Current Medications Albuterol/Ipratropium (Duoneb 3 Mg/0.5 Mg (3 Ml) Ud) 3 ml INH RQ6 PRN PRN Reason: Shortness of Breath Hydrocortisone (Anusol-Hc) 25 mg RC BID [facility] Stop: 10/28/16 18:01 Last Admin: 10/15/16 09:49 Dose: 25 mg Insulin Human Regular (Novolin R) 0 unit SC ACHS [facility] PRN Reason: Protocol Last Admin: 10/15/16 16:58 Dose: Not Given Lactulose (Enulose) 30 gm PO BID [facility] Last Admin: 10/15/16 09:48 Dose: 30 gm Multivitamins (Hexavitamin) 1 tab PO DAILY [facility] Last Admin: 10/15/16 09:50 Dose: 1 tab Propranolol HCl (Inderal) 10 mg PO DAILY [facility] Last Admin: 10/15/16 09:49 Dose: 10 mg Rifaximin (Xifaxan) 550 mg PO BID [facility] Last Admin: 10/15/16 10:45 Dose: 550 mg Spironolactone (Aldactone) 100 mg PO DAILY [facility] Last Admin: 10/15/16 09:49 Dose: 100 mg Results - Vital Signs Recent Vital Signs: Last Vital Signs Temp 98.5 F 10/15/16 07:00 Pulse 79 10/15/16 07:00 Resp 20 10/15/16 07:00 BP 106/71 10/15/16 07:00 Pulse Ox 99 10/15/16 07:00 - Labs Result Diagrams: 10/15/16 14:12 10/15/16 14:12 Labs: Laboratory Results - last 24 hr 10/14/16 10/15/16 10/15/16 20:58 02:10 05:47 WBC RBC Hgb Hct MCV MCH MCHC RDW Plt Count MPV Neut % (Auto) Lymph % (Auto) [place] % (Auto) Eos % (Auto) Baso % (Auto) Neut # Lymph # [place] # Eos # Baso # Sodium 134 135 Potassium 3.3 L 3.6 Chloride 106 107 Carbon Dioxide 20 L 22 Anion Gap 11 9 L BUN 14 14 Creatinine 0.8 0.8 Est GFR ( Amer) > 60 > 60 Est GFR (Non-Af Amer) > 60 > 60 POC Glucose (mg/dL) 96 Random Glucose 83 76 Calcium 7.3 L 7.4 L Phosphorus 2.7 Magnesium 1.5 L Total Bilirubin 6.5 H AST 101 H D ALT 57 H Alkaline Phosphatase 151 H Total Protein 5.3 L Albumin 2.1 L Globulin 3.3 Albumin/Globulin Ratio 0.6 L 10/15/16 10/15/16 10/15/16 05:47 06:24 11:28 WBC 4.6 L RBC 2.28 L Hgb 8.5 L Hct 24.8 L MCV 108.7 H MCH 37.4 H MCHC 34.4 RDW 22.1 H Plt Count 71 L D MPV 7.2 Neut % (Auto) 51.9 Lymph % (Auto) 35.5 [place] % (Auto) 11.0 H Eos % (Auto) 0.9 Baso % (Auto) 0.7 Neut # 2.4 Lymph # 1.6 [place] # 0.5 Eos # 0.0 Baso # 0.0 Sodium Potassium Chloride Carbon Dioxide Anion Gap BUN Creatinine Est GFR ( Amer) Est GFR (Non-Af Amer) POC Glucose (mg/dL) 79 110 Random Glucose Calcium Phosphorus Magnesium Total Bilirubin AST ALT Alkaline Phosphatase Total Protein Albumin Globulin Albumin/Globulin Ratio 10/15/16 10/15/16 10/15/16 14:12 14:12 16:49 WBC 5.3 RBC 2.68 L Hgb 10.1 L Hct 29.2 L MCV 108.9 H MCH 37.7 H MCHC 34.6 RDW 22.1 H Plt Count 84 L MPV 7.3 Neut % (Auto) 59.9 Lymph % (Auto) 29.8 [place] % (Auto) 8.9 Eos % (Auto) 0.7 Baso % (Auto) 0.7 Neut # 3.2 Lymph # 1.6 [place] # 0.5 Eos # 0.0 Baso # 0.0 Sodium 138 Potassium 4.0 Chloride 111 H Carbon Dioxide 18 L Anion Gap 13 BUN 14 Creatinine 0.8 Est GFR ( Amer) > 60 Est GFR (Non-Af Amer) > 60 POC Glucose (mg/dL) 97 Random Glucose 105 Calcium 8.1 L Phosphorus Magnesium Total Bilirubin 7.5 H AST 115 H ALT 64 H Alkaline Phosphatase 170 H Total Protein 5.9 L Albumin 2.2 L Globulin 3.7 Albumin/Globulin Ratio 0.6 L Attending/Attestation - Attestation I have personally seen and examined this patient.: Yes I have fully participated in the care of the patient.: Yes I have reviewed all pertinent clinical information: Yes Notes (Text): 10/15/16 18:00 I have seen and examined patient with GI fellow. Agree with above documentation with the following additions. In brief this is a 51 year old female with history of decompensated ETOH/HCV cirrhosis, HTN, asthma, who presents to hospital with complaint of rectal bleeding for the past two days. She describes recent constipation over the past few weeks with hard stool and straining during defecation. For the past two days she has experienced gross hematochezia without any associated abdominal pain, nausea, vomiting, fever/ chills, or weight loss. She has not been compliant with lactulose regimen for enecephalopathy prevention in the setting of known cirrhosis. Since arrival to hospital she has not had any recurrent rectal bleeding, no prior colonoscopy. HCV/ETOH decompensated cirrhosis, admission MELD 21 Constipation, rectal bleeding - rectal exam done today shows hemorrhoids without presence of blood in rectal vault HTN Asthma - H/H stable, no recurrent bleeding noted, continue to monitor - Suggest use of rectal suppository therapy for treatment of hemorrhoids - Encourage increased PO water and fiber intake - Stressed importance of adherence to lactulose therapy, titrated so patient has 2-3 bowel movements daily - LFTs stable, continue to monitor. Patient with prior ASMA positive along with elevated SPEP, potential autoimmune overlap consideration warrants outpatient follow up - Patient would also benefit from screening colonoscopy which can be performed electively as outpatient - No ongoing GI issues, will sign off case. Please reconsult as necessary, thank you.
--- NOTE | 2016-10-15 11:40 | US ---
HISTORY: eval for ascites COMPARISON: Abdominal ultrasound performed 09/09/16 TECHNIQUE: Sonographic evaluation of the right upper quadrant of the abdomen. FINDINGS: LIVER: Measures 14.6 cm in length. Echogenic liver may be seen in setting of hepatic parenchymal disease or fatty infiltration. No focal hepatic mass identified. The main portal vein appears patent with normal directional flow. No intrahepatic bile duct dilatation. Mild abdominal ascites. GALLBLADDER: No gallstones. Mild gallbladder wall thickening measuring approximately 4 mm. Pericholecystic edema. Negative sonographic Bruner's sign as assessed by the bioinformatics team member. COMMON BILE DUCT: Measures 7 mm. PANCREAS: Not well-visualized. RIGHT KIDNEY: Measures 10.9 x 4.8 x 5.4 cm. No obstructing calculus or hydronephrosis identified. AORTA: Limited visualization appears grossly unremarkable. IVC: Limited visualization appears grossly unremarkable. OTHER FINDINGS: None . IMPRESSION: Echogenic liver may be seen in setting of hepatic parenchymal disease or fatty infiltration. Nodular hepatic contour consistent with cirrhosis. Mild abdominal ascites. Mild common bile duct dilatation. No gallstones. Mild gallbladder wall thickening measuring approximately 4 mm. Pericholecystic edema. Negative sonographic Bruner's sign as assessed by the bioinformatics team member.Correlate clinically.
--- NOTE | 2016-10-15 12:19 | CP.PCM.PN ---
Subjective - Date & Time of Evaluation Date of Evaluation: 10/15/16 Time of Evaluation: 07:20 - Subjective Subjective: PGY1 Progress Note for Dr. Pablo: Patient seen and examined. Patient states she is feeling better today. Patient reports that her abdomen felt firm yesterday as she had been constipated. Patient reports large bloody bowel movement last night. Objective - Vital Signs/Intake and Output Vital Signs (last 24 hours): Temp Pulse Resp BP Pulse Ox 98.5 F 79 20 106/71 99 10/15/16 07:00 10/15/16 07:00 10/15/16 07:00 10/15/16 07:00 10/15/16 07:00 Intake and Output: 10/15/16 10/15/16 06:59 18:59 Intake Total 1360 Balance 1360 - Medications Medications: Current Medications Albuterol/Ipratropium (Duoneb 3 Mg/0.5 Mg (3 Ml) Ud) 3 ml INH RQ6 PRN PRN Reason: Shortness of Breath Hydrocortisone (Anusol-Hc) 25 mg RC BID [facility] Stop: 10/28/16 18:01 Last Admin: 10/15/16 09:49 Dose: 25 mg Insulin Human Regular (Novolin R) 0 unit SC ACHS [facility] PRN Reason: Protocol Last Admin: 10/15/16 08:45 Dose: Not Given Lactulose (Enulose) 30 gm PO BID [facility] Last Admin: 10/15/16 09:48 Dose: 30 gm Multivitamins (Hexavitamin) 1 tab PO DAILY [facility] Last Admin: 10/15/16 09:50 Dose: 1 tab Propranolol HCl (Inderal) 10 mg PO DAILY [facility] Last Admin: 10/15/16 09:49 Dose: 10 mg Rifaximin (Xifaxan) 550 mg PO BID [facility] Last Admin: 10/15/16 10:45 Dose: 550 mg Spironolactone (Aldactone) 100 mg PO DAILY [facility] Last Admin: 10/15/16 09:49 Dose: 100 mg - Labs Labs: 10/15/16 05:47 10/15/16 05:47 PT 18.0 SECONDS (9.7-12.2) H 10/14/16 13:10 INR 1.6 10/14/16 13:10 - Constitutional Appears: Non-toxic, No Acute Distress - Head Exam Head Exam: ATRAUMATIC, NORMOCEPHALIC - Eye Exam Eye Exam: EOMI - ENT Exam ENT Exam: Mucous Membranes Moist - Respiratory Exam Respiratory Exam: Clear to Ausculation Bilateral, NORMAL BREATHING PATTERN - Cardiovascular Exam Cardiovascular Exam: +S1, +S2 - GI/Abdominal Exam GI & Abdominal Exam: Distended, Soft. absent: Firm, Guarding, Rigid Additional comments: reducible umbilical hernia - Extremities Exam Extremities Exam: Normal Inspection. absent: Pedal Edema - Neurological Exam Neurological Exam: Alert, Awake - Psychiatric Exam Psychiatric exam: Normal Affect - Skin Skin Exam: Warm Assessment and Plan - Assessment and Plan (Free Text) Assessment: (1) Rectal bleed Assessment and Plan: per patient, she had large bloody bowel movement last night hemoglobin dropped this AM from 10.4 to 8.5, patient's baseline from prior admissions around 8.6, 9.4 will stop IV fluids and re-check CBC this afternoon to assess how much hgb drop is dilutional from IVF start anusol per GI Status: Acute (2) Cirrhosis Assessment and Plan: Abd US: echogenic liver may be seen in setting of hepatic parenchymal disease or fatty infiltration. Nodular hepatic contour consistent with cirrhosis. Mild abdominal ascites, mild common bile duct dilatation. No gallstones, mild gallbladder wall thickening measuring approximately 4mm. PEricholecystic edema. Negative sonographic Bruner's sign. spironolactone 100mg PO daily, lactulose 30g PO BID rifaxamin 550mg PO BID Status: Chronic (3) Hypokalemia Assessment and Plan: potassium today 3.6, will continue to monitor and replete as needed hold lasix Status: Acute (4) Anemia Assessment and Plan: Hgb 8.5 this morning, will re-check CBC this afternoon once patient off IVF Status: chronic (5) Elevated lipase Assessment and Plan: Lipase at 600, most likely chronic from etoh abuse history. Status: Acute (6) Hyperbilirubinemia Assessment and Plan: from history of liver cirrhosis from hepatatis C and ETOH abuse history. Status: Acute (7) Thrombocytopenia Assessment and Plan: secondary to ETOH abuse history, platelet count is again around her baseline. Status: Chronic (8) Serum ammonia increased Assessment and Plan: lactulose BID Status: Acute (9) History of hepatitis C Assessment and Plan: Dr. Corral has been consulted, is chronic though. Status: Chronic (10) Asthma Assessment and Plan: Duoneb Q6H prn Status: Chronic (11) Diabetes mellitus Assessment and Plan: accuchecks with sliding scale insulin as needed with low protocol Status: Chronic (12) Prophylactic measure Assessment and Plan: SCDs, hold VTE due to active bleed and thrombocytopenia Protonix discontinued per GI as it can increase risk SBP in cirrhotic patients Status: Acute
[2016-10-15 14:22] LABS: BASO % 0.7 % (0.0-2.0); EOS % 0.7 % (0.0-4.0); HEMATOCRIT 29.2 % (34.0-47.0); LYMPH # 1.6 K/uL (1.0-4.3); LYMPH % 29.8 % (20.0-40.0); MEAN CELL VOLUME 108.9 fL (81.0-99.0); MEAN CORPUSCULAR HEMOGLOBIN 37.7 pg (27.0-31.0); MEAN CORPUSCULAR HGB CONC 34.6 g/dL (33.0-37.0); MEAN PLATELET VOLUME 7.3 fL (7.2-11.7); MONO # 0.5 K/uL (0.0-0.8); MONO % 8.9 % (0.0-10.0); NRBC % 0.1 % (0.0-2.0); RED CELL DISTRIBUTION WIDTH 22.1 % (11.5-14.5); WHITE BLOOD COUNT 5.3 K/uL (4.8-10.8)
[2016-10-15 14:48] LABS: CHLORIDE 111 mmol/L (98-107)
[2016-10-15 14:49] LABS: SODIUM 138 mmol/L (132-148)
[2016-10-15 14:52] LABS: ALB/GLOB RATIO 0.6 (1.0-2.1); ALKALINE PHOSPHATASE 170 U/L (38-126); AST/SGOT 115 U/L (14-36); BILIRUBIN,TOTAL 7.5 mg/dL (0.2-1.3); BLOOD UREA NITROGEN 14 mg/dL (7-17); CARBON DIOXIDE 18 mmol/L (22-30); GFR AFRICAN-AMERICAN > 60; TOTAL PROTEIN 5.9 g/dL (6.3-8.3)
[2016-10-15 14:53] LABS: ALT/SGPT 64 U/L (9-52); CALCIUM 8.1 mg/dl (8.6-10.4); GLUCOSE,RANDOM 105 mg/dL (65-105)
[2016-10-16] MEDS: (Novolin R) Insulin Human Regular 100 units/ml vial SC SCH ×2 (07:53→11:30)
[2016-10-16 08:21] VITALS: BP 106/63; PULSE 80; RESP 17; TEMP 98.5; O2SAT 100
[2016-10-16 08:31] LABS: BASO # 0.1 K/uL (0.0-0.2); EOS # 0.1 K/uL (0.0-0.7); EOS % 1.2 % (0.0-4.0); HEMATOCRIT 28.2 % (34.0-47.0); LYMPH # 1.9 K/uL (1.0-4.3); LYMPH % 28.1 % (20.0-40.0); MEAN CELL VOLUME 111.1 fL (81.0-99.0); MEAN CORPUSCULAR HEMOGLOBIN 37.5 pg (27.0-31.0); MEAN CORPUSCULAR HGB CONC 33.7 g/dL (33.0-37.0); MEAN PLATELET VOLUME 7.5 fL (7.2-11.7); MONO # 0.7 K/uL (0.0-0.8); MONO % 10.9 % (0.0-10.0); NRBC % 0.1 % (0.0-2.0); RED CELL DISTRIBUTION WIDTH 22.3 % (11.5-14.5); WHITE BLOOD COUNT 6.8 K/uL (4.8-10.8)
[2016-10-16 08:52] LABS: CHLORIDE 109 mmol/L (98-107); SODIUM 134 mmol/L (132-148)
[2016-10-16 08:54] LABS: BILIRUBIN,TOTAL 5.5 mg/dL (0.2-1.3); GFR AFRICAN-AMERICAN > 60
[2016-10-16 08:55] LABS: ALB/GLOB RATIO 0.6 (1.0-2.1); ALKALINE PHOSPHATASE 188 U/L (38-126); ALT/SGPT 60 U/L (9-52); AST/SGOT 110 U/L (14-36); BLOOD UREA NITROGEN 11 mg/dL (7-17); CALCIUM 7.8 mg/dl (8.6-10.4); CARBON DIOXIDE 18 mmol/L (22-30); GLUCOSE,RANDOM 124 mg/dL (65-105); TOTAL PROTEIN 5.9 g/dL (6.3-8.3)
[2016-10-16 08:56] LABS: MAGNESIUM 1.5 mg/dL (1.6-2.3)
[2016-10-16] MEDS: Multiple Vitamins Tab PO SCH (10:04)
--- NOTE | 2016-10-16 12:19 | CARD ---
APPROVED REPORT EKG Measurement Heart [id number] HI [id number] <Conclusion> Normal sinus rhythm Nonspecific T wave abnormality Abnormal ECG
--- NOTE | 2016-10-16 13:47 | CP.PCM.DIS ---
Provider - Provider Date of Admission: 10/14/16 15:27 Attending physician: Avril Pablo DO Primary care physician: Dr. Villeda Consults: Dr. Corral Time Spent in preparation of Discharge (in minutes): 35 Diagnosis - Discharge Diagnosis (1) Cirrhosis of liver Status: Acute Comment: Patient is to follow up with Dr. Corral on discharge. Patient is being given new medication xofaxan 550mg PO daily. Hospital Course - Lab Results Lab Results: Most Recent Lab Values WBC 6.8 K/uL (4.8-10.8) 10/16/16 08:24 RBC 2.54 Mil/uL (3.80-5.20) L 10/16/16 08:24 Hgb 9.5 g/dL (11.0-16.0) L 10/16/16 08:24 Hct 28.2 % (34.0-47.0) L 10/16/16 08:24 MCV 111.1 fL (81.0-99.0) H D 10/16/16 08:24 MCH 37.5 pg (27.0-31.0) H 10/16/16 08:24 MCHC 33.7 g/dL (33.0-37.0) 10/16/16 08:24 RDW 22.3 % (11.5-14.5) H 10/16/16 08:24 Plt Count 91 K/uL (130-400) L 10/16/16 08:24 MPV 7.5 fL (7.2-11.7) 10/16/16 08:24 Neut % (Auto) 58.8 % (50.0-75.0) 10/16/16 08:24 Lymph % (Auto) 28.1 % (20.0-40.0) 10/16/16 08:24 [place] % (Auto) 10.9 % (0.0-10.0) H 10/16/16 08:24 Eos % (Auto) 1.2 % (0.0-4.0) 10/16/16 08:24 Baso % (Auto) 1.0 % (0.0-2.0) 10/16/16 08:24 Neut # 4.0 K/uL (1.8-7.0) 10/16/16 08:24 Lymph # 1.9 K/uL (1.0-4.3) 10/16/16 08:24 [place] # 0.7 K/uL (0.0-0.8) 10/16/16 08:24 Eos # 0.1 K/uL (0.0-0.7) 10/16/16 08:24 Baso # 0.1 K/uL (0.0-0.2) 10/16/16 08:24 PT 18.0 SECONDS (9.7-12.2) H 10/14/16 13:10 INR 1.6 10/14/16 13:10 Sodium 134 mmol/L (132-148) 10/16/16 08:24 Potassium 4.0 mmol/L (3.6-5.2) 10/16/16 08:24 Chloride 109 mmol/L (98-107) H 10/16/16 08:24 Carbon Dioxide 18 mmol/L (22-30) L 10/16/16 08:24 Anion Gap 11 (10-20) 10/16/16 08:24 BUN 11 mg/dL (7-17) 10/16/16 08:24 Creatinine 0.8 MG/DL (0.7-1.2) 10/16/16 08:24 Est GFR ( Amer) > 60 10/16/16 08:24 Est GFR (Non-Af Amer) > 60 10/16/16 08:24 POC Glucose (mg/dL) 120 mg/dL (65-110) H 10/16/16 10:59 Random Glucose 124 mg/dL (65-105) H 10/16/16 08:24 Calcium 7.8 mg/dl (8.6-10.4) L 10/16/16 08:24 Phosphorus 2.7 mg/dL (2.5-4.5) 10/15/16 05:47 Magnesium 1.5 mg/dL (1.6-2.3) L 10/16/16 08:24 Total Bilirubin 5.5 mg/dL (0.2-1.3) H 10/16/16 08:24 AST 110 U/L (14-36) H 10/16/16 08:24 ALT 60 U/L (9-52) H 10/16/16 08:24 Alkaline Phosphatase 188 U/L (38-126) H 10/16/16 08:24 Ammonia 129 umol/L (9-33) H D 10/14/16 13:10 Total Protein 5.9 g/dL (6.3-8.3) L 10/16/16 08:24 Albumin 2.1 g/dL (3.5-5.0) L 10/16/16 08:24 Globulin 3.7 gm/dL (2.2-3.9) 10/16/16 08:24 Albumin/Globulin Ratio 0.6 (1.0-2.1) L 10/16/16 08:24 Lipase 620 U/L (23-300) H 10/14/16 13:10 Urine Color [place] (YELLOW) 10/14/16 13:10 Urine Clarity Hazy (Clear) 10/14/16 13:10 Urine pH 6.0 (5.0-8.0) 10/14/16 13:10 Ur Specific [place] 1.013 (1.003-1.030) 10/14/16 13:10 Urine Protein Negative mg/dL (NEGATIVE) 10/14/16 13:10 Urine Glucose (UA) Normal mg/dL (Normal) 10/14/16 13:10 Urine Ketones Negative mg/dL (NEGATIVE) 10/14/16 13:10 Urine Blood 1+ (NEGATIVE) H 10/14/16 13:10 Urine Nitrate Negative (NEGATIVE) 10/14/16 13:10 Urine Bilirubin 1+ (NEGATIVE) H 10/14/16 13:10 Urine Urobilinogen 4.0 mg/dL (0.2-1.0) H 10/14/16 13:10 Ur Leukocyte Esterase 3+ [place]/uL (Negative) H 10/14/16 13:10 Urine WBC (Auto) 38 /hpf (0-5) H 10/14/16 13:10 Urine RBC (Auto) 10 /hpf (0-3) H 10/14/16 13:10 Ur Squamous Epith Cells 13 /hpf (0-5) H 10/14/16 13:10 Urine Bacteria Rare (<OCC) 10/14/16 13:10 Hyaline Casts 0-2 /lpf (0-2) 10/14/16 13:10 Stool Occult Blood Negative (NEGATIVE) 10/14/16 16:39 Blood Type B POSITIVE 10/14/16 13:32 Antibody Screen Negative 10/14/16 13:32 - Hospital Course Hospital Course: On Admission: Patient is a 51 year old female with a history of upper GI bleed, esophageal varices, Hepatitis C, ETOH abuse, and asthma. She is here because she started to noticed that she was bleeding from her rectum last night. She says that after she was discharged she noticed that she was having a small amount of blood with each bowel movement. She then said that last night she had a large bloody bowel movement with dark red blood and some clots. She had a similar episode this morning as well. She thought it was hemmroids initially however she came to the hospital with her . She is is also complaining of chills but no fever, abdominal distention, abdominal pain, productive cough, chest tightness, and wheezing. She says her primary doctor is trying to her over to a hospital in [place] for further care of her liver. She was last admitted for an upper GI bleed last month and had a EGD as well. During Hospitalization: Patient was admitted with complaint of blood per rectum. Patient had rectal examination during hospitalization which did not show sasha blood. [facility] have [facility] movements and had not been able to start lactulose therapy prior to admission. Patient was placed on home medications, with exception of lasix which was held due to hypokalemia. Patient was given lactulose twice daily in addition to anusol suppository. Patient was advised to follow up with GI to have outpatient colonoscopy. On Discharge: Patient is stable for discharge home per Dr. Browning. Patient will need to follow up with her PMD Dr. Villeda within one week of discharge. Patient will need follow up with GI doctor, Dr. Corral for colonoscopy. Patient is to take the following new medications on discharge: rifaximin 550mg twice a day, and anusol suppository twice a day. Patient should take her lactulose twice a day. Patient will also resume taking home medications propranolol 10mg daily, aldactone 100mg daily, lasix daily, albuterol nebulizers as needed as well as multivitamins. Patient should return to the ED if her symptoms reoccur or worsen. This was explained to the patient who understands and agrees. Discharge Exam - Head Exam Head Exam: ATRAUMATIC, NORMOCEPHALIC - Eye Exam Eye Exam: EOMI, Normal appearance - ENT Exam ENT Exam: Mucous Membranes Moist - Respiratory Exam Respiratory Exam: Clear to PA & Lateral, NORMAL BREATHING PATTERN - Cardiovascular Exam Cardiovascular Exam: +S1, +S2 - GI/Abdominal Exam GI & Abdominal Exam: Distended, Normal Bowel Sounds. absent: Firm Additional comments: reducible umbilical hernia - Extremities Exam Extremities exam: normal inspection - Neurological Exam Neurological exam: Alert - Psychiatric Exam Psychiatric exam: Normal Affect - Skin Skin Exam: Warm Discharge Plan - Discharge Medications Prescriptions: Hydrocortisone [Anusol-Hc] 25 mg RC BID 30 Days rifAXIMin [Xifaxan] 550 mg PO BID 30 Days - Follow Up Plan Condition: STABLE Disposition: HOME/ ROUTINE Instructions: Hydrocortisone (Into the rectum), Rifaximin (By mouth), Gastrointestinal Bleeding (DC), Cirrhosis (DC), Heart Healthy Diet (DC), Ascites (DC) Additional Instructions: Patient is stable for discharge home per Dr. Browning. Patient will need to follow up with her PMD Dr. Villeda within one week of discharge. Patient will need follow up with GI doctor, Dr. Corral for colonoscopy. Patient is to take the following new medications on discharge: rifaximin 550mg twice a day, and anusol suppository twice a day. Patient should take her lactulose twice a day. Patient will also resume taking home medications propranolol 10mg daily, aldactone 100mg daily, lasix daily, albuterol nebulizers as needed as well as multivitamins. Patient should return to the ED if her symptoms reoccur or worsen. This was explained to the patient who understands and agrees. Referrals: Giancarlo Corral MD [Staff Provider] - Ceferino Villeda MD [Staff Provider] -
== END 2016-10-16 12:43 | disposition home or self-care (01) | DRG 557 ==
LOC: C.ER 12:16 → C.9E 15:27 → C.3T 16:39 → C.9E 18:13 → C.6T 18:23
PROVIDERS: ADMIT Hospitalist; ATTEND Hospitalist
DX: K70.31 Alcoholic cirrhosis of liver with ascites (principal); K72.90 Hepatic failure, unspecified without coma; K76.6 Portal hypertension; D69.6 Thrombocytopenia, unspecified; I85.00 Esophageal varices without bleeding; E11.22 Type 2 diabetes mellitus with diabetic chronic kidney disease; E87.6 Hypokalemia; J44.9 Chronic obstructive pulmonary disease, unspecified; N18.9 Chronic kidney disease, unspecified; D53.9 Nutritional anemia, unspecified; F10.10 Alcohol abuse, uncomplicated; F17.210 Nicotine dependence, cigarettes, uncomplicated; I12.9 Hypertensive chronic kidney disease with stage 1 through stage 4 chronic kidney disease, or unspecified chronic kidney disease; K59.00 Constipation, unspecified; K64.9 Unspecified hemorrhoids; Z87.19 Personal history of other diseases of the digestive system; Z87.440 Personal history of urinary (tract) infections; Z91.19 Patient's noncompliance with other medical treatment and regimen

== ENCOUNTER 2017-04-10 15:58 | Emergency (ER) | payer MEDICAID ==
[2017-04-10 15:58] VITALS: BMI 22.3
--- NOTE | 2017-04-10 16:18 | C.PDOC ---
History Of Present Illness <Cali Han - Last Filed: 04/10/17 18:36> <Nataliya Holland - Last Filed: 04/11/17 04:38> 51 year old female presents to the ED for medical clearance. Patient is intoxicated with slurred speech while in the ED, she states she was seen in [place] for generalized pain. Patient denies any other associated complaints at the time. (Cali Han) History Per: Patient History/Exam Limitations: intoxication Onset/Duration Of Symptoms: Hrs Current Symptoms Are (Timing): Gone Reports Recently: Hospitalized ([facility]) Recent travel outside of the [place]: No Additional History Per: Patient <Cali Han - Last Filed: 04/10/17 18:36> <Nataliya Holland - Last Filed: 04/11/17 04:38> Time Seen by Provider: 04/10/17 16:06 Chief Complaint (Nursing): Medical Clearance Past Medical History Reviewed: Historical Data, Nursing Documentation, Vital Signs - Medical History PMH: Anemia, Anxiety, Asthma, Bronchitis, COPD (ASTHMA), Depression, Diabetes ( type 2), Hepatitis (C), HTN, Pancreatitis, Peripheral Edema, Chronic Kidney Disease, Seizures Denies: HIV (denies), Hypercholesterolemia Surgical History: No Surg Hx Family History: States: Unknown Family Hx - Social History Hx Tobacco Use: Yes (light smoker) Hx Alcohol Use: Yes Hx Substance Use: No - Immunization History Hx Tetanus Toxoid Vaccination: No Hx Influenza Vaccination: No Hx Pneumococcal Vaccination: No <Cali Han - Last Filed: 04/10/17 18:36> Vital Signs: Last Vital Signs Temp 97.2 F L 04/10/17 19:29 Pulse 65 04/10/17 19:29 Resp 17 04/10/17 19:29 BP 111/63 04/10/17 19:29 Pulse Ox 99 04/10/17 19:29 - [facility] Procedures ALCOHOL DETOXIFICATION (01/20/13) DRAINAGE OF PERITONEAL CAVITY WITH DRAIN DEV, PERC APPROACH (02/11/15) DRAINAGE OF PERITONEAL CAVITY, PERCUTANEOUS APPROACH (03/04/16) DRAINAGE OF PERITONEAL CAVITY, PERCUTANEOUS APPROACH, DIAGN (03/04/16) EXCISION OF STOMACH, ENDO, DIAGN (09/08/16) FLUOROSCOPY OF SUPERIOR VENA CAVA, GUIDANCE (09/08/16) INFLUENZA VACCINATION (06/25/14) INSERTION OF INFUSION DEV INTO SUP VENA CAVA, PERC APPROACH (10/05/16) INSPECTION OF UPPER INTESTINAL TRACT, ENDO (03/04/16) OCCLUSION ESOPHAGEAL VEIN W EXTRALUM DEV, PERC ENDO (02/11/15) OTHER ENDOSCOPY OF SM INTEST (06/25/14) TRANSFUSE NONAUT FROZEN PLASMA IN PERIPH VEIN, PERC (09/08/16) TRANSFUSE NONAUT RED BLOOD CELLS IN PERIPH VEIN, PERC (10/05/16) ULTRASONOGRAPHY OF SUPERIOR VENA CAVA, GUIDANCE (10/05/16) VACCINATION NEC (06/25/14) Review Of Systems Constitutional: Negative for: Fever, Chills Cardiovascular: Negative for: Chest Pain, Palpitations Respiratory: Negative for: Cough, Shortness of Breath Gastrointestinal: Negative for: Nausea, Vomiting, Abdominal Pain Skin: Negative for: Rash Neurological: Negative for: Weakness, Numbness Psych: Negative for: Depression, Suicidal ideation <Cali Han - Last Filed: 04/10/17 18:36> Physical Exam - Physical Exam Appears: Non-toxic, Other (In toxicated, slurred speech) Skin: Normal Color, Warm, Dry Head: Atraumatic, Normacephalic Nose: No Discharge, No Deformity Oral Mucosa: Moist, No Drooling Neck: Normal ROM, Supple Chest: Symmetrical Cardiovascular: Rhythm Regular, No Murmur Respiratory: Normal Breath Sounds, No Rales, No Rhonchi, No Wheezing Gastrointestinal/Abdominal: Soft, No Tenderness, No Mass, No Distention, No Guarding, No Rebound Back: No CVA Tenderness Extremity: Normal ROM, No Pedal Edema, No Calf Tenderness, No Deformity, No Swelling Neurological/Psych: Oriented x3, Other (Speech slurred) <Cali Han - Last Filed: 04/10/17 18:36> ED Course And Treatment - Laboratory Results Result Diagrams: 04/10/17 16:48 04/10/17 16:48 O2 Sat by Pulse Oximetry: 100 (On RA) Pulse Ox Interpretation: Normal Progress Note: Plan: -Blood work ordered Reevaluation Time: 18:36 (improving) Reassessment Condition: Improved <Cali Han - Last Filed: 04/10/17 18:36> - Laboratory Results Result Diagrams: 04/10/17 16:48 12/02/17 16:48 <Nataliya Holland - Last Filed: 04/11/17 04:38> Medical Decision Making <Cali Han - Last Filed: 04/10/17 18:36> <Nataliya Holland - Last Filed: 04/11/17 04:38> Medical Decision Making: On reevaluation patient is awake, alert up right standing next to her stretcher NAD. Pt wishes to call her family members and states she feels better. Pt is stable enough for d/c. (Nataliya Holland) Disposition <Cali Han - Last Filed: 04/10/17 18:36> - Disposition Disposition Time: 04:37 <Nataliya Holland - Last Filed: 04/11/17 04:38> - Disposition Referrals: Alcoholics Anonymous [Outside] [facility] [Outside] Disposition: HOME/ ROUTINE Condition: GOOD Instructions: Alcohol Intoxication (ED), Acute Abdominal Pain (ED) Forms: [employer] (Turkish) - Clinical Impression Clinical Impression: Alcohol abuse - Scribe Statement The provider has reviewed the documentation as recorded by the Scribe <Cali Han - Last Filed: 04/10/17 18:36> <Nataliya Holland - Last Filed: 04/11/17 04:38> - Scribe Statement Corona Hu All medical record entries made by the Scribe were at my direction and personally dictated by me. I have reviewed the chart and agree that the record accurately reflects my personal performance of the history, physical exam, medical decision making, and the department course for this patient. I have also personally directed, reviewed, and agree with the discharge instructions and disposition. (Cali Han)
[2017-04-10 16:51] LABS: BASO % 0.5 % (0.0-2.0); EOS # 0.1 K/uL (0.0-0.7); HEMATOCRIT 31.6 % (34.0-47.0); LYMPH # 2.1 K/uL (1.0-4.3); LYMPH % 22.5 % (20.0-40.0); MEAN CELL VOLUME 111.6 fL (81.0-99.0); MEAN CORPUSCULAR HEMOGLOBIN 38.4 pg (27.0-31.0); MEAN CORPUSCULAR HGB CONC 34.4 g/dL (33.0-37.0); MEAN PLATELET VOLUME 7.9 fL (7.2-11.7); MONO % 10.9 % (0.0-10.0); RED CELL DISTRIBUTION WIDTH 16.4 % (11.5-14.5); WHITE BLOOD COUNT 9.2 K/uL (4.8-10.8)
[2017-04-10 17:13] LABS: BILIRUBIN,TOTAL 6.4 mg/dL (0.2-1.3); CALCIUM 7.6 mg/dl (8.6-10.4); POTASSIUM 3.8 mmol/L (3.6-5.2); TOTAL PROTEIN 8.3 g/dL (6.3-8.3)
[2017-04-10 17:15] LABS: ALB/GLOB RATIO 0.5 (1.0-2.1)
[2017-04-10 19:31] VITALS: BP 111/63; PULSE 65; RESP 17; TEMP 97.2; O2SAT 99
== END 2017-04-10 19:29 | disposition home or self-care (01) ==
LOC: C.ER 15:58
DX: F10.10 Alcohol abuse, uncomplicated (principal); E11.9 Type 2 diabetes mellitus without complications; I12.9 Hypertensive chronic kidney disease with stage 1 through stage 4 chronic kidney disease, or unspecified chronic kidney disease; N18.9 Chronic kidney disease, unspecified; J44.9 Chronic obstructive pulmonary disease, unspecified; Z87.891 Personal history of nicotine dependence